=== PATIENT | female | born 1945 | race Caucasian/White ===

== ENCOUNTER → 2017-05-26 12:59 | Outpatient (POV) | payer MEDICARE, SELFPAY | PROVIDERS: Visit Provider Dermatology | DX: Z00.00 Encounter for general adult medical examination without abnormal findings (principal) ==

== ENCOUNTER → 2017-07-14 15:00 | Outpatient (CLI) | payer MEDICARE, OTHER, SELFPAY ==
--- NOTE | 2017-07-14 15:07 | US_ITS ---
US thyroid HISTORY: Follow-up left-sided thyroid nodules ITS.REASON: HYPOTHYROIDISM,THYROID NODULE ORDERING PHYSICIAN: Elijah Cota MD PATIENT AGE: 71 years COMPARISON: 02/26/2015 FINDINGS: There has been prior right thyroidectomy. The left lobe measures 4 x 1.2 x 1.2 cm. An isoechoic 5 x 3 mm nodule present in the upper pole on the left. 6 x 3 mm slightly hypoechoic nodule in the mid polar region. This does not appear changed. Previously there was a cystic nodule in the lower pole not apparent on today's exam. No new nodules are evident. IMPRESSION: 1. Status post right thyroidectomy. 2. No change in the 2 small left thyroid nodules. Previously noted left thyroid cyst no longer apparent
== END ==
PROVIDERS: PCP Internal Medicine Adolescent Medicine; Visit Provider Internal Medicine Adolescent Medicine
DX: E03.9 Hypothyroidism, unspecified (principal); E04.9 Nontoxic goiter, unspecified
CPT/HCPCS: 76536

== ENCOUNTER → 2017-09-01 13:09 | Outpatient (POV) | payer MEDICARE, SELFPAY | PROVIDERS: Visit Provider Dermatology | DX: Z00.00 Encounter for general adult medical examination without abnormal findings (principal) ==

== ENCOUNTER → 2018-01-25 08:41 | Outpatient (CLI) | payer MEDICARE, OTHER, SELFPAY ==
--- NOTE | 2018-01-25 08:44 | MM_ITS ---
MM Dig screening mamm BI w/CAD ORDERING PHYSICIAN : Rachid Mejia MD PATIENT AGE: 72 years GENDER: Female COMPARISON: December 2015, 2016, November 2014,. Also September 2013 and INDICATION: ITS.REASON: screening No hormones. No new complaints. Previous benign excisional biopsy left breast. Noncontributory family history TECHNIQUE: Standard CC and MLO images were obtained. R2 CAD reviewed. FINDINGS: Mild fatty replacement bilaterally Mild asymmetric residual fibroglandular elements in the retroareolar region on right more evident than left. RIGHT BREAST: No change since previous studies. Stable mammogram. Follow-up one year. LEFT BREAST:Stable breast. IMPRESSION: Stable bilateral mammogram. Follow-up in one year recommended. BI-RADS Category: 1 Negative RECOMMENDED FOLLOW-UP: 1YR 1 YEAR FOLLOW-UP (A letter has been sent to the patient regarding results of the study.)
== END ==
PROVIDERS: PCP Internal Medicine Adolescent Medicine; Visit Provider Obstetrics & Gynecology
DX: Z12.31 Encounter for screening mammogram for malignant neoplasm of breast (principal)
CPT/HCPCS: 77067

== ENCOUNTER → 2018-11-17 08:23 | Outpatient (CLI) | payer SELFPAY ==
--- NOTE | 2018-11-17 08:37 | CT_ITS ---
PROCEDURE: CT HEART W CALCIUM SCORE CLINICAL HISTORY: screening for heart disease COMPARISON: No exams were available for comparison TECHNIQUE: Axial images obtained with sagittal and coronal reformats. All CT scans at the facility use one or more dose reduction, viz: automated exposure control, ma/kV adjustment per patient size (including targeted exams where dose is matched to indication, i.e. head), or iterative reconstruction technique. FINDINGS: Coronary artery calcium score is 32 indicating mild plaque burden and moderate cardiovascular disease risk. There is some scarring noted in both lower lobes and right middle lobe IMPRESSION: Mild plaque burden with moderate cardiovascular disease risk Dictated by: Amish Pagan MD 11/17/2018 17:12 Signed by: <Electronically signed by Amish Pagan MD in [place]> 11/17/2018 17:12
== END ==
PROVIDERS: PCP Internal Medicine Adolescent Medicine; Visit Provider Internal Medicine Cardiovascular Disease
DX: Z13.6 Encounter for screening for cardiovascular disorders (principal)
CPT/HCPCS: 75571

== ENCOUNTER → 2019-02-05 07:53 | Outpatient (CLI) | payer MEDICARE, OTHER, SELFPAY ==
--- NOTE | 2019-02-05 07:55 | MM_ITS ---
PROCEDURE: MM DIG SCREENING MAMM BI W/CAD Patient Age:73Y CLINICAL INDICATION: screening. No hormones. No new complaints. Noncontributory family history. Previous benign excisional biopsy left breast. COMPARISON: [facility] DIG MAMM-SCREEN WOOD from 01/13/2016 [facility] DIG MAMM-SCREEN WOOD W/CAD from 01/19/2017 [facility] MM Dig screening mamm BI w/CAD from 01/25/2018 TECHNIQUE: Standard CC and MLO images were obtained. R2 CAD reviewed. FINDINGS: Stable mild/moderate asymmetry. Mild residual fibroglandular elements Right breast. We again see the stable breast density more evident at right retroareolar, than left. Longstanding feature with no change since prior studies dating back to 2016. No new areas of concern-no new dominant or suspicious mass is identified. No suspicious calcifications. CAD highlights no new areas of concern.. . Bilateral follow-up 1 year recommended IMPRESSION: Stable bilateral mammogram . No significant change since previous studies b Bilateral follow-up 1 year recommended BI-RAD Category: 1 Negative FOLLOW-UP: 1YR 1 Year Follow-up (A letter has been sent to the patient regarding results of the study.) Dictated by: Zhang Archuleta MD 02/05/2019 14:39 Electronically signed by Zhang Archuleta MD in [place] 02/05/2019 14:39
== END ==
PROVIDERS: PCP Internal Medicine Adolescent Medicine; Visit Provider Obstetrics & Gynecology
DX: Z12.31 Encounter for screening mammogram for malignant neoplasm of breast (principal)
CPT/HCPCS: 77067

== ENCOUNTER → 2019-02-16 13:13 | Outpatient (CLI) | payer MEDICARE, OTHER, SELFPAY ==
[2019-02-16 13:30] LABS: Eosinophils # 0.1 K/mm3 (0.0-0.4); Eosinophils % 1.3 % (0.1-12.0); Hematocrit 41.6 % (37.0-47.0); Hemoglobin 13.8 g/dL (12.2-16.2); Lymphocytes # 1.1 K/mm3 (0.7-4.5); Lymphocytes % 28.4 % (10-50); Mean Corpuscular HGB Conc 33.1 g/dL (31.8-35.4); Mean Corpuscular Hemoglobin 31.2 pg (27.0-31.2); Mean Corpuscular Volume 94.3 fl (81-99); Mean Platelet Volume 8.1 fl (7.4-10.4); Monocytes # 0.2 K/mm3 (0.1-1.0); Monocytes % 5.8 % (1.7-9.3); Neutrophils # 2.5 K/mm3 (1.8-7.8); Neutrophils % 63.5 % (37.0-80.0); Platelet Count 263 K/mm3 (142-424); Red Blood Count 4.41 M/mm3 (4.20-5.40); Red Cell Distribution Width 14.4 % (11.5-17.5); White Blood Count 3.9 K/mm3 (4.8-10.8)
[2019-02-16 14:48] LABS: Alanine Aminotransferase 24 U/L (12-78); Albumin Level 3.6 gm/dL (3.4-5.0); Albumin/Globulin Ratio 1.3 (1.1-1.8); Alkaline Phosphatase 77 U/L (46-116); Anion Gap 9.1 mEq/L (5-15); Aspartate Amino Transferase 27 U/L (15-37); Bilirubin,Total 0.8 mg/dL (0.2-1.0); Blood Urea Nitrogen 10 mg/dL (7-18); Calcium 8.6 mg/dL (8.5-10.1); Carbon Dioxide 31 mmol/L (21.0-32.0); Chloride 99 mmol/L (98-107); Chol/HDL Ratio 1.9 (1-3.5); Cholesterol 165 mg/dL (140-200); Creatinine,Serum 0.87 mg/dL (0.55-1.02); Estimated Glomerular Filt Rate 64 ml/min (>60); GFR (African American) 77 ML/MIN (>60); Globulin 2.7 gm/dl (1.3-3.2); Glucose 81 mg/dL (74-106); HDL Cholesterol 85 mg/dL (29-89); LDL Cholesterol 70 mg/dL (0-130); Potassium 3.1 mmoL/L (3.5-5.1); Sodium 136 mmol/L (136-145); Thyroid Stimulating Hormone 2.14 uIU/ml (0.358-3.740); Total Protein,Serum 6.3 gm/dL (6.4-8.2); Triglycerides 52 mg/dL (30-200); Triiodothryronine (T3) Uptake 36 % (31-39); VLDL Cholesterol 10 mg/dL (0-40)
== END ==
PROVIDERS: Visit Provider Internal Medicine Adolescent Medicine
DX: E78.5 Hyperlipidemia, unspecified (principal); E03.9 Hypothyroidism, unspecified; Z86.39 Personal history of other endocrine, nutritional and metabolic disease
CPT/HCPCS: 36415; 80053; 80061; 84436; 84443; 84479; 85025

== ENCOUNTER → 2019-03-05 13:05 | Outpatient (CLI) | payer MEDICARE, OTHER, SELFPAY ==
--- NOTE | 2019-03-05 13:06 | XR_ITS ---
PROCEDURE: XR DEXA AXIAL SKELETON CLINICAL HISTORY: screening Postmenopausal female COMPARISON: FINDINGS: utilizing the radius bone mineral density was 0.612 grams/squared centimeter. T-score -3.[address] the patient in the osteoporotic category with increased fracture risk. Utilizing the femoral neck bone mineral density was 0.844 grams/squared centimeter with a T-score -1.4 indicating osteopenia. 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
== END ==
PROVIDERS: PCP Internal Medicine Adolescent Medicine; Visit Provider Obstetrics & Gynecology
DX: Z78.0 Asymptomatic menopausal state (principal)
CPT/HCPCS: 77080

== ENCOUNTER → 2019-05-18 12:47 | Outpatient (CLI) | payer MEDICARE, OTHER, SELFPAY ==
[2019-05-18 13:22] LABS: Basophils % 1.1 % (0.1-2.0); Eosinophils % 1.1 % (0.1-12.0); Hematocrit 42.3 % (37.0-47.0); Hemoglobin 13.5 g/dL (12.2-16.2); Lymphocytes # 1.1 K/mm3 (0.7-4.5); Lymphocytes % 28.6 % (10-50); Mean Corpuscular Hemoglobin 29.2 pg (27.0-31.2); Mean Corpuscular Volume 91.5 fl (81-99); Mean Platelet Volume 7.3 fl (7.4-10.4); Monocytes # 0.2 K/mm3 (0.1-1.0); Neutrophils # 2.4 K/mm3 (1.8-7.8); Neutrophils % 63.2 % (37.0-80.0); Platelet Count 258 K/mm3 (142-424); Red Blood Count 4.62 M/mm3 (4.20-5.40); Red Cell Distribution Width 14.1 % (11.5-17.5); White Blood Count 3.8 K/mm3 (4.8-10.8)
[2019-05-18 14:17] LABS: Chloride 96 mmol/L (98-107)
[2019-05-18 14:18] LABS: Potassium 3.4 mmoL/L (3.5-5.1); Sodium 133 mmol/L (136-145)
[2019-05-18 14:20] LABS: Alanine Aminotransferase 17 U/L (12-78); Alkaline Phosphatase 64 U/L (38-126); Anion Gap 10.4 mEq/L (5-15); Aspartate Amino Transferase 29 U/L (14-36); Bilirubin,Total 0.7 mg/dl (0.2-1.3); Blood Urea Nitrogen 12 mg/dl (7-17); Carbon Dioxide 30 mmol/L (22.0-30.0); Cholesterol 152 mg/dl (140-200); Estimated Glomerular Filt Rate 62 ml/min (>60); GFR (African American) 74 ML/MIN (>60); Triglycerides 73 mg/dl (30-150); VLDL Cholesterol 15 mg/dL (0-40)
[2019-05-18 14:21] LABS: Albumin Level 3.8 g/dl (3.5-5.0); Albumin/Globulin Ratio 1.7 (1.1-1.8); Calcium 9.3 mg/dl (8.4-10.2); Chol/HDL Ratio 2.1 (1-3.5); Globulin 2.2 g/dL (1.3-3.2); Glucose 86 mg/dl (74-100); HDL Cholesterol 74 mg/dl (40-60)
[2019-05-18 14:32] LABS: Direct LDL Cholesterol 69.14 mg/dL (100-129)
[2019-05-18 14:50] LABS: Thyroid Stimulating Hormone 1.64 uIU/mL (0.465-4.68)
[2019-05-19 08:45] LABS: Vitamin D 25 Hydroxy 51.6 ng/mL (30.0-100.0)
== END ==
PROVIDERS: Visit Provider Internal Medicine Adolescent Medicine
DX: Z00.00 Encounter for general adult medical examination without abnormal findings (principal); E78.5 Hyperlipidemia, unspecified; M81.0 Age-related osteoporosis without current pathological fracture
CPT/HCPCS: 36415; 80053; 80061; 82652; 84443; 85025

== ENCOUNTER 2019-05-30 12:53 | Outpatient (CLI) | payer MEDICARE, OTHER, SELFPAY ==
[2019-05-30 13:02] VITALS: BP 131/70; PULSE 68; RESP 18
[2019-05-30 13:20] VITALS: BP 124/73; PULSE 63; RESP 18
== END 2019-05-30 13:20 | disposition home or self-care (01) ==
LOC: INF 12:53
PROVIDERS: Visit Provider Internal Medicine Adolescent Medicine
DX: M81.0 Age-related osteoporosis without current pathological fracture (principal)
CPT/HCPCS: 96374; J3489

== ENCOUNTER → 2019-08-31 08:54 | Outpatient (CLI) | payer MEDICARE, OTHER, SELFPAY ==
[2019-08-31 09:42] LABS: Basophils # 0.1 K/mm3 (0-0.2); Basophils % 1.4 % (0.1-2.0); Eosinophils # 0.1 K/mm3 (0.0-0.4); Eosinophils % 2.4 % (0.1-12.0); Hematocrit 37.6 % (37.0-47.0); Hemoglobin 13.3 g/dL (12.2-16.2); Lymphocytes # 0.8 K/mm3 (0.7-4.5); Mean Corpuscular HGB Conc 35.3 g/dL (31.8-35.4); Mean Corpuscular Hemoglobin 31.7 pg (27.0-31.2); Mean Corpuscular Volume 89.9 fl (81-99); Mean Platelet Volume 7.9 fl (7.4-10.4); Monocytes # 0.2 K/mm3 (0.1-1.0); Monocytes % 4.7 % (1.7-9.3); Neutrophils # 2.2 K/mm3 (1.8-7.8); Neutrophils % 66.5 % (37.0-80.0); Platelet Count 242 K/mm3 (142-424); Red Blood Count 4.19 M/mm3 (4.20-5.40); Red Cell Distribution Width 14.1 % (11.5-17.5); White Blood Count 3.3 K/mm3 (4.8-10.8)
[2019-08-31 10:32] LABS: Chloride 96 mmol/L (98-107); Potassium 3.8 mmoL/L (3.5-5.1); Sodium 135 mmol/L (136-145)
[2019-08-31 10:34] LABS: Alanine Aminotransferase 17 U/L (12-78); Aspartate Amino Transferase 29 U/L (14-36); Blood Urea Nitrogen 16 mg/dl (7-17); Estimated Glomerular Filt Rate 54 ml/min (>60); GFR (African American) 66 ML/MIN (>60)
[2019-08-31 10:35] LABS: Albumin Level 3.7 g/dl (3.5-5.0); Albumin/Globulin Ratio 1.5 (1.1-1.8); Alkaline Phosphatase 73 U/L (38-126); Anion Gap 10.8 mEq/L (5-15); Bilirubin,Total 0.9 mg/dl (0.2-1.3); Calcium 8.7 mg/dl (8.4-10.2); Carbon Dioxide 32 mmol/L (22.0-30.0); Chol/HDL Ratio 1.8 (1-3.5); Cholesterol 151 mg/dl (140-200); Globulin 2.4 g/dL (1.3-3.2); Glucose 91 mg/dl (74-100); HDL Cholesterol 84 mg/dl (40-60); Total Protein,Serum 6.1 g/dl (6.3-8.2); Triglycerides 100 mg/dl (30-150); VLDL Cholesterol 20 mg/dL (0-40)
[2019-08-31 10:47] LABS: Direct LDL Cholesterol 66.66 mg/dL (100-129)
[2019-08-31 11:05] LABS: Thyroid Stimulating Hormone 2.16 uIU/mL (0.465-4.68)
[2019-09-01 13:53] LABS: Vitamin B12 418 pg/mL (232-1245)
== END ==
PROVIDERS: Visit Provider Internal Medicine Adolescent Medicine
DX: E03.9 Hypothyroidism, unspecified (principal); E78.5 Hyperlipidemia, unspecified; Z86.39 Personal history of other endocrine, nutritional and metabolic disease
CPT/HCPCS: 36415; 80053; 80061; 82607; 84443; 85025

== ENCOUNTER → 2019-10-29 13:46 | Outpatient (CLI) | payer MEDICARE, OTHER, SELFPAY ==
--- NOTE | 2019-10-29 13:49 | US_ITS ---
PROCEDURE: US THYROID CLINICAL INDICATION: THYROID NODULE Follow-up thyroid nodule COMPARISON: THY US thyroid from 07/14/2017 FINDINGS: There has been a prior right thyroidectomy. The isthmus has an unremarkable appearance. There is a 5 x 2 mm area of slight decreased echogenicity in the upper pole on the left not significantly changed. In addition, there is a 6 mm area of somewhat heterogeneous decreased echogenicity in the mid polar region unchanged. No new areas of concern IMPRESSION: Status post right thyroidectomy. No change in the areas of decreased echogenicity in the left lobe which may be due to small stable nodules Dictated by: Amish Pagan MD 10/29/2019 17:19 Electronically signed by Amish Pagan MD in [place] 10/29/2019 17:19
== END ==
PROVIDERS: PCP Internal Medicine Adolescent Medicine; Visit Provider Internal Medicine Adolescent Medicine
DX: E04.1 Nontoxic single thyroid nodule (principal)
CPT/HCPCS: 76536

== ENCOUNTER → 2019-11-02 10:40 | Outpatient (CLI) | payer MEDICARE, OTHER, SELFPAY ==
[2019-11-02 16:14] LABS: Coronavirus 19 IgG Antibody Negative (Negative)
[2019-11-02 16:15] LABS: Coronavirus 19 IgM Antibody Negative (Negative)
== END ==
PROVIDERS: Visit Provider Internal Medicine Gastroenterology
DX: Z01.818 Encounter for other preprocedural examination (principal); Z12.11 Encounter for screening for malignant neoplasm of colon
CPT/HCPCS: 36415; 86328

== ENCOUNTER 2019-11-05 12:50 | Day surgery (SDC) | payer MEDICARE, OTHER, SELFPAY ==
[2019-11-01 13:16] VITALS: BMI 21.7
[2019-11-05 13:21] VITALS: BP 166/95; PULSE 84; RESP 18; TEMP 36.7; O2SAT 98
--- NOTE | 2019-11-05 13:53 | P.PCN_ITS ---
[facility] Procedure Note Procedure Note:: Colonoscopy Procedure Report: Colonoscopy with cold snare polypectomy Endoscopist: Bogdan Hannah II, MD Referring physician: ANDREW Arce Date of Procedure: November 05, 2019 Equipment: Olympus 180 variable stiffness pediatric colonoscope Sedation: MAC sedation Indication: Mrs. Xiao is a 74-year-old female who is here for follow-up screening/surveillance colonoscopy secondary to a personal history of adenomatous polyps. She had a normal colonoscopy 15 years ago (at age 59). The patient's last colonoscopy 5 years ago revealed for colon polyps (probable adenomatous polyps with Dr. Juanita Valdes). The patient does have some chronic longstanding constipation. She reports no abdominal pain, weight loss, change in her bowel habits or rectal bleeding. She reports no family history of colon cancer. Her recent lab work showed normal hemoglobin 13.5 and hematocrit 42.3. Her liver chemistries were normal. Procedure: Prior to the procedure, a history and physical exam was performed, and patient's medications and allergies were reviewed. The risks, benefits and alternatives of the sedation and procedure were discussed with the patient. All questions were answered and informed consent was obtained. The patient was brought to the procedure room. Patient identification and proposed procedure were verified by the physician and the nurse. The patient was placed in a left lateral decubitus position and the scope was passed under direct vision. Throughout the procedure, the patient's blood pressure, pulse, and oxygen saturations were monitored continuously. The colonoscopy was accomplished without difficulty. The patient tolerated the procedure well. Findings: On digital rectal examination there was normal rectal tone. There were no external hemorrhoids. The colonoscope was introduced through the anal canal to the rectum and advanced to the cecum. The ileocecal valve and appendiceal orifice were identified. The scope was advanced a short distance into the ileum which appeared grossly normal. The scope was then withdrawn into the colon. The cecum, ascending and transverse colon and mucosa were grossly normal. There were 3 diminutive polyps (descending x2 (3 and 4 mm) and sigmoid x1 (3 mm)) that were removed via cold snare polypectomy. There were scattered diverticuli throughout the descending and sigmoid colon (LEFT colon). There was very mild melanosis coli of the left colon. The rectum itself was normal. Upon retroflexion within the rectum there were grade 1-2 internal hemorrhoids. The preparation was excellent throughout with [place] Preparation Score of 9. The cecal time was 12 minutes. Impression: 1. Diminutive colonic polyps x3 2. Left-sided diverticulosis 3. Grade 1-2 internal hemorrhoids Plan: I will follow up the polyp pathology and recommend repeat colonoscopy again in 5-7 years based upon the polyp histology. I would encourage a fiber bowel regimen on a long-term daily maintenance basis.
[2019-11-05 13:54] VITALS: O2SAT 97
--- NOTE | 2019-11-05 14:12 | HMH.ANESCL ---
[facility] Anesthesia Checklist - Patient Identification Patient Identification: Arm Band - Structural Data Admitted From: Home Planned Operative Procedure/s: colonoscopy Consent for Planned Operative Procedure(s) Verified: Yes Verified Documents: Surgical Consent, History and Physical - NPO Status Verified Time NPO: 00:00 - Additional verifications Anesthesia Reactions: No - Airway Assessment C-Spine Mobility Assessed: Yes (mp2) TMJ Mobility Assessed: Yes Dentition: Poor Dentition - Neurological Assessment Level of Consciousness: Awake, Alert - Anesthesia Plan Anesthesia Risk discussed: Yes Anesthesia Plan: Verified ASA Class: II Anesthesia Type: MAC [facility] History I have reviewed the patient's past medical history: Yes Medical History: Reports:: Hyperlipidemia, Hypertension Denies:: Cancer, Diabetes Mellitus Type 1, Diabetes Mellitus Type 2, Internal Pacemaker, MRSA, Seizures *Have you ever received a pneumonia vaccine?: Yes *Have you received a flu vaccine this season?: Yes Other Medical History: Reports: Anemia, Hypothyroidism, Thyroid Disease Anesthesia experience/problems:: nac Other Surgeries: Yes: Hysterectomy-Total, Tubal Ligation, Other. No: Pacemaker Amputation: No Fractures: Yes - *Social History Last grade of school completed: High school graduate Smoking Status: Former smoker Alcohol Intake: never Alcohol Intake Frequency:: a few times a week Substance Use Type: denies use *Occupational Status:: retired Housing: house Household Members: spouse *Travel in the last 8 weeks: None Family Hx:: Coronary Artery Disease, Stroke, Hypertension
[2019-11-05 14:25] VITALS: BP 96/54; PULSE 64; RESP 12; TEMP 36.7; O2SAT 97
[2019-11-05 14:35] VITALS: BP 126/73; PULSE 76; RESP 16; O2SAT 98
[2019-11-05 14:45] VITALS: BP 126/76; PULSE 74; RESP 16; O2SAT 95
[2019-11-05 14:55] VITALS: BP 114/78; PULSE 73; RESP 16; TEMP 36.7; O2SAT 97
== END 2019-11-05 14:56 | disposition home or self-care (01) ==
LOC: OUTP 12:52
PROVIDERS: PCP Internal Medicine Adolescent Medicine; Visit Provider Internal Medicine Gastroenterology
PROC: 0DJD8ZZ Inspection of Lower Intestinal Tract, Via Natural or Artificial Opening Endoscopic (ICD-10-PCS; CPT 45378; principal; 2019-11-05 14:00)
DX: Z12.11 Encounter for screening for malignant neoplasm of colon (principal); Z87.19 Personal history of other diseases of the digestive system; K63.5 Polyp of colon; K57.30 Diverticulosis of large intestine without perforation or abscess without bleeding; K64.0 First degree hemorrhoids; E78.5 Hyperlipidemia, unspecified; I10 Essential (primary) hypertension; Z85.850 Personal history of malignant neoplasm of thyroid; E89.0 Postprocedural hypothyroidism; Z90.710 Acquired absence of both cervix and uterus; Z88.6 Allergy status to analgesic agent; Z79.899 Other long term (current) drug therapy
CPT/HCPCS: 45385; 88305

== ENCOUNTER → 2020-02-08 12:36 | Outpatient (CLI) | payer MEDICARE, OTHER, SELFPAY ==
--- NOTE | 2020-02-08 12:36 | MM_ITS ---
PROCEDURE: MM DIG SCREENING MAMM BI W/CAD Referring Doctor: Glo Mathew Patient Age:74Y CLINICAL INDICATION: Routine Screening Mammogram. 74-year-old.. No hormones no new complaints Has had left breast benign excisional excisional biopsy Family history. Unremarkable COMPARISON: MG [facility] DIGITAL MAMM-SCREEN BILATERAL from 09/29/2010 MG [facility] DIGITAL MAMM-SCREEN BILATERAL from 10/13/2011 MG [facility] DIG MAMM-SCREEN WOOD from 10/19/2012 MG [facility] DIG MAMM-SCREEN WOOD from 10/22/2013 MG [facility] DIG MAMM-SCREEN WOOD from 12/23/2014 MG [facility] DIG MAMM-SCREEN WOOD from 01/13/2016 MG [facility] DIG MAMM-SCREEN WOOD W/CAD from 01/19/2017 [facility] MM Dig screening mamm BI w/CAD from 01/25/2018 MG MM DIG SCREENING MAMM BI W/CAD from 02/05/2019 TECHNIQUE: Standard CC and MLO images were obtained. R2 CAD reviewed. Bilateral digital breast tomosynthesis included. Additional MLO nipple profile view left breast included FINDINGS: Moderate density breast with fibroglandular elementsmost evident anterior breast retroareolar region bilateral. No new dominant or suspicious mass either breast but no suspicious calcifications but would encourage annual follow-up. Left breast: No significant new findings. Overall stable appearance when compared back to 2016 with no new areas of significant concern Small areas of density at the medial breast are similar to 2016 but no significant new findings overall Right breast: No new findings of significant concern. . Similar pattern previous studies. Scattered minor areas of asymmetric density dissipate on the tomosynthesis views bilateral IMPRESSION: Stable bilateral mammogram. No new areas of significant concern. Moderately dense breast Bilateral follow-up 1 year, recommended and encouraged BI-RAD Category: 2 Benign Finding(s) FOLLOW-UP: 1YR 1 Year Follow-up (A letter has been sent to the patient regarding results of the study.) Dictated by: Zhang Archuleta MD 02/19/2020 09:26 Zhang Archuleta MD in [place] 02/19/2020 09:26
== END ==
PROVIDERS: PCP Internal Medicine Adolescent Medicine; Visit Provider Obstetrics & Gynecology
DX: Z12.31 Encounter for screening mammogram for malignant neoplasm of breast (principal)
CPT/HCPCS: 77063; 77067

== ENCOUNTER → 2020-02-19 14:37 | Outpatient (CLI) | payer MEDICARE, OTHER, SELFPAY ==
--- NOTE | 2020-02-19 14:39 | XR_ITS ---
PROCEDURE: XR MULTIPLE SPINE 6+V CLINICAL INDICATION: LOWER THORACIC BACK PAIN, CERVICALGIA Pain COMPARISON: No exams were available for comparison FINDINGS: There is exaggerated cervical lordosis and thoracic kyphosis with multilevel degenerative disc disease. Facet arthritic changes are present with hypertrophy from C4-C7. There is mild foraminal narrowing on the left at C4-C5. No fracture or dislocation. No lytic or blastic change. There is degenerative disc disease in the mid and upper thoracic spine There postsurgical changes of the lumbar spine with a lateral bone plate at L1 L2 and L3 stabilizing an old L2 compression fracture with a circular cage device present at L1-L2 and L3. There is mild lumbar scoliosis convex right. There is degenerative disc disease at L5-S1. There is 7 mm anterolisthesis of L4. IMPRESSION: Multilevel spondylosis of the cervical thoracic and lumbar spine with postsurgical changes of the lumbar spine. No acute fracture or dislocation. Dictated by: Amish Pagan MD 02/19/2020 15:42 Amish Pagan MD in [place] 02/19/2020 15:42
--- NOTE | 2020-02-19 14:40 | CT_ITS ---
PROCEDURE: CT SOFT TISSUE NECK WO CON CLINICAL HISTORY: SUBMANDIBULAR LYMPHADENOPATHY swollen lymph node, right side x several weeks achy pain at times COMPARISON: No exams were available for comparison TECHNIQUE: Oral Contrast: None IV Contrast: None Axial images obtained with sagittal and coronal reformats. All CT scans at the facility use one or more dose reduction, viz: automated exposure control, ma/kV adjustment per patient size (including targeted exams where dose is matched to indication, i.e. head), or iterative reconstruction technique. FINDINGS: Evaluation in the soft tissues of the neck is somewhat limited without IV contrast. The nasopharynx, oropharynx, hypopharynx, epiglottis, glottic and subglottic region have an unremarkable appearance. There is a 3 mm hypodensity in the left lobe of the thyroid gland suggesting a small nodule. There are few scattered small lymph nodes in the neck with no dominant adenopathy. The parotid and submandibular glands have an unremarkable appearance. A BB is placed along the right mid aspect of the neck where there is an area of palpable concern. There is no soft tissue mass deep to this region. There are couple small nodes and external jugular vein noted at this area. The paranasal sinuses, mastoid sinuses in TMJs have an unremarkable appearance. There are mild degenerative changes in the cervical spine with 3 mm anterolisthesis of C4 on C5. IMPRESSION: Essentially unremarkable unenhanced CT of the neck. There are few scattered small lymph nodes. Deep to the placed BB in the right neck there is a small lymph node and external jugular vein. Dictated by: Amish Pagan MD 02/20/2020 11:43 Amish Pagan MD in [place] 02/20/2020 11:43
== END ==
PROVIDERS: PCP Internal Medicine Adolescent Medicine; Visit Provider Internal Medicine Adolescent Medicine
DX: R59.0 Localized enlarged lymph nodes (principal); M54.2 Cervicalgia; M54.6 Pain in thoracic spine
CPT/HCPCS: 70490; 72084

== ENCOUNTER → 2020-04-14 12:10 | Outpatient (CLI) | payer MEDICARE, OTHER, SELFPAY ==
[2020-04-14 12:53] LABS: Basophils % 0.8 % (0.1-2.0); Eosinophils % 0.8 % (0.1-12.0); Hemoglobin 14.6 g/dL (12.2-16.2); Lymphocytes # 1.1 K/mm3 (0.7-4.5); Lymphocytes % 20.3 % (10-50); Mean Corpuscular HGB Conc 32.4 g/dL (31.8-35.4); Mean Corpuscular Hemoglobin 31.4 pg (27.0-31.2); Mean Corpuscular Volume 97.1 fl (81-99); Mean Platelet Volume 11.2 fl (7.4-10.4); Monocytes # 0.3 K/mm3 (0.1-1.0); Neutrophils # 3.8 K/mm3 (1.8-7.8); Platelet Count 318 K/mm3 (142-424); Red Blood Count 4.64 M/mm3 (4.20-5.40); Red Cell Distribution Width 14.4 % (11.5-17.5); White Blood Count 5.2 K/mm3 (4.8-10.8)
[2020-04-14 13:23] LABS: Alanine Aminotransferase 28 U/L (12-78); Albumin Level 4.2 g/dl (3.5-5.0); Albumin/Globulin Ratio 1.5 (1.1-1.8); Alkaline Phosphatase 84 U/L (38-126); Anion Gap 8.9 mEq/L (5-15); Aspartate Amino Transferase 36 U/L (14-36); Bilirubin,Total 0.7 mg/dl (0.2-1.3); Blood Urea Nitrogen 14 mg/dl (7-17); Calcium 10.4 mg/dl (8.4-10.2); Carbon Dioxide 33 mmol/L (22.0-30.0); Chloride 93 mmol/L (98-107); Estimated Glomerular Filt Rate 70 ml/min (>60); GFR (African American) 85 ML/MIN (>60); Globulin 2.8 g/dL (1.3-3.2); Glucose 106 mg/dl (74-100); Potassium 3.9 mmoL/L (3.5-5.1); Sodium 131 mmol/L (136-145)
[2020-04-14 13:40] LABS: Free Thyroxine Index 3.9 ug/dL (5.93-13.13); T4 (Thyroxine) 11.6 ug/dl (5.53-11.0); Triiodothryronine (T3) Uptake 34 % (23.5-40.5)
[2020-04-14 13:42] LABS: 25-OH Vitamin D, Total 43.5 ng/mL (30-100)
[2020-04-14 13:54] LABS: Thyroid Stimulating Hormone 2.07 uIU/mL (0.465-4.68)
[2020-04-14 14:54] LABS: Vitamin B12 662 pg/mL (239-931)
[2020-04-15 10:03] LABS: Chol/HDL Ratio 2.3 (1-3.5); Cholesterol 197 mg/dl (140-200); HDL Cholesterol 87 mg/dl (40-60); Triglycerides 93 mg/dl (30-150); VLDL Cholesterol 19 mg/dL (0-40)
[2020-04-15 10:14] LABS: Direct LDL Cholesterol 82.79 mg/dL (100-129)
== END ==
PROVIDERS: Visit Provider Internal Medicine Adolescent Medicine
DX: E03.9 Hypothyroidism, unspecified (principal); E78.5 Hyperlipidemia, unspecified; M81.0 Age-related osteoporosis without current pathological fracture; Z86.39 Personal history of other endocrine, nutritional and metabolic disease
CPT/HCPCS: 36415; 80053; 80061; 82306; 82607; 84436; 84443; 84479; 85025

== ENCOUNTER 2020-05-19 15:00 | Outpatient (RCR) | payer MEDICARE, OTHER, SELFPAY ==
--- NOTE | 2020-04-21 11:33 | HMH.OTOPEV ---
OT Inpatient Evaluation Rehab OT Outpatient Eval Start: 04/21/20 11:09 Freq: Status: Active Protocol: Document 04/21/20 11:09 DINESH (Rec: 04/21/20 11:33 [id number] Electronically Signed By Magaly Neves OT 04/21/20 11:09 Outpatient Therapy Subjective History Subjective History Pt was seen this date for initial eval to L shoulder. Pt has dx of L frozen shoulder, but reports more pain with R shoulder. Pt can not remember a specific injury to L shoulder; however pt's in January 2020, and he used a wheelchair for mobility. Pt beleives her pain is related to getting his w/c in and out of the vehicle. After his , pt reports that the pain came on gradually and the shoulder has also became stiff, limiting her ROM. Pt reports that she has not had any x-rays for this specific injury, but she has arthritis in her back. Pt is R hand dominant. Pt demonstrates a decrease in strength and ROM along w/ pain when she moves her arm. Chief Complaint Pain,Stiff Symptom Type Other Symptoms Relieved By Rest/Positioning Symptoms Aggravated By Physical Activity,Lifting Prior Functional Limitations None Current Functional Limitations Reaching,Lifting,Housework, Dressing,Driving,Sleeping Symptom Description Intermittent,Activity Dependent Level of pain today (0-10) 4 Pain scale - at its best (0-10) 2 Pain scale - at its worst (0-10) 6 Shoulder/Elbow Eval Shoulder Objective Measurements Shoulder ROM Left Shoulder Abduction Active Range of 67 Motion (degrees) Shoulder Flexion Active Range of Motion 104 (degrees) Query Text: Shoulder External Rotation Active Range 30 of Motion (degrees) Shoulder Internal Rotation Active Range 45 of Motion (degrees) pain with active ROM shoulder exam left standard pain with passive ROM shoulder exam left standard decreased ROM shoulder exam standard left Shoulder MMT Shoulder Abduction Strengt
== END 2020-05-19 15:05 | disposition home or self-care (01) ==
LOC: OT 15:00
PROVIDERS: PCP Internal Medicine Adolescent Medicine; Visit Provider Internal Medicine Adolescent Medicine
DX: M75.02 Adhesive capsulitis of left shoulder (principal)
CPT/HCPCS: 97014; 97110; 97140; 97166; G0283

== ENCOUNTER 2020-07-02 13:24 | Outpatient (CLI) | payer MEDICARE, OTHER, SELFPAY ==
--- NOTE | 2020-07-02 13:30 | XR_ITS ---
PROCEDURE: XR SHOULDER RT MIN 2V CLINICAL INDICATION: BL shoulder pain Right shoulder pain COMPARISON: CR SHOU3R [id number] VIEWS from 12/05/2016 CR XR SHOULDER LT MIN 2V from 07/02/2020 FINDINGS: There are severe osteoarthritic changes of the right shoulder including the acromioclavicular and glenohumeral joint. There is severe subacromial stenosis with loss of the acromial humeral space consistent with rotator cuff tear. There is a lucency noted along the anterior aspect of the glenoid on the axillary view and could be related to an old fracture or atypical osteophyte. There are old right-sided rib fractures. Other findings:None. IMPRESSION: Severe osteoarthritic change of the acromioclavicular and glenohumeral joint with severe subacromial stenosis consistent with rotator cuff tear with high-riding humeral head Nondisplaced fracture versus atypical osteophyte along the anterior aspect of the glenoid Dictated by: Amish Pagan MD 07/02/2020 14:45 Amish Pagan MD in [place] 07/02/2020 14:45
--- NOTE | 2020-07-02 13:30 | XR_ITS ---
PROCEDURE: XR SHOULDER LT MIN 2V CLINICAL INDICATION: BL shoulder pain Left-sided shoulder pain COMPARISON: CR SHOU3R [id number] VIEWS from 12/05/2016 FINDINGS: There is high-riding humeral head with severe subacromial stenosis consistent with rotator cuff tear with scalloping along the undersurface of the chromium. Osteoarthritic changes are present at the glenohumeral joint. No acute fracture or dislocation is evident. There is an old fracture of the left 3rd rib anteriorly. IMPRESSION: 1. Severe subacromial stenosis with high-riding humeral head consistent with rotator cuff tear. 2. Osteoarthritic change Dictated by: Amish Pagan MD 07/02/2020 14:47 Amish Pagan MD in [place] 07/02/2020 14:47
[2020-07-02 15:16] VITALS: BMI 22.1
[2020-07-02 15:46] LABS: Albumin Level 4.3 g/dl (3.5-5.0)
[2020-07-02 15:48] LABS: Creatinine Clearance Estimated 43 mL/min (50-200); Estimated Glomerular Filt Rate 70 ml/min (>60); GFR (African American) 85 ML/MIN (>60)
[2020-07-02 16:11] VITALS: BP 145/72; PULSE 70; RESP 18; TEMP 36.8; O2SAT 99
[2020-07-02 16:31] VITALS: BP 140/78; PULSE 76; RESP 18; O2SAT 100
== END 2020-07-02 16:31 | disposition home or self-care (01) ==
LOC: INF 13:26
PROVIDERS: PCP Internal Medicine Adolescent Medicine; Visit Provider Orthopaedic Surgery
DX: M25.511 Pain in right shoulder (principal); M25.512 Pain in left shoulder; M81.0 Age-related osteoporosis without current pathological fracture
CPT/HCPCS: 73030; 82040; 82310; 82565; 96374; J3489

== ENCOUNTER → 2020-09-11 12:11 | Outpatient (CLI) | payer MEDICARE, OTHER, SELFPAY ==
[2020-09-11 13:00] LABS: Basophils # 0.1 K/mm3 (0-0.2); Basophils % 1.3 % (0.1-2.0); Eosinophils # 0.1 K/mm3 (0.0-0.4); Hematocrit 43.5 % (37.0-47.0); Hemoglobin 13.8 g/dL (12.2-16.2); Lymphocytes # 1.2 K/mm3 (0.7-4.5); Lymphocytes % 31.1 % (10-50); Mean Corpuscular HGB Conc 31.8 g/dL (31.8-35.4); Mean Corpuscular Hemoglobin 29.5 pg (27.0-31.2); Mean Corpuscular Volume 92.9 fl (81-99); Monocytes # 0.2 K/mm3 (0.1-1.0); Monocytes % 5.6 % (1.7-9.3); Neutrophils # 2.3 K/mm3 (1.8-7.8); Platelet Count 257 K/mm3 (142-424); Red Blood Count 4.69 M/mm3 (4.20-5.40); Red Cell Distribution Width 13.4 % (11.5-17.5); White Blood Count 3.8 K/mm3 (4.8-10.8)
[2020-09-11 13:35] LABS: Alanine Aminotransferase 25 U/L (12-78); Albumin Level 4.2 g/dl (3.5-5.0); Albumin/Globulin Ratio 1.8 (1.1-1.8); Alkaline Phosphatase 83 U/L (38-126); Anion Gap 10.2 mEq/L (5-15); Aspartate Amino Transferase 36 U/L (14-36); Bilirubin,Total 0.9 mg/dl (0.2-1.3); Blood Urea Nitrogen 12 mg/dl (7-17); Carbon Dioxide 31 mmol/L (22.0-30.0); Chloride 94 mmol/L (98-107); Chol/HDL Ratio 2.2 (1-3.5); Cholesterol 197 mg/dl (140-200); Estimated Glomerular Filt Rate 70 ml/min (>60); GFR (African American) 85 ML/MIN (>60); Globulin 2.4 g/dL (1.3-3.2); Glucose 91 mg/dl (74-100); HDL Cholesterol 89 mg/dl (40-60); Potassium 4.2 mmoL/L (3.5-5.1); Sodium 131 mmol/L (136-145); Total Protein,Serum 6.6 g/dl (6.3-8.2); Triglycerides 61 mg/dl (30-150); VLDL Cholesterol 12 mg/dL (0-40)
[2020-09-11 13:46] LABS: Direct LDL Cholesterol 82.64 mg/dL (100-129)
[2020-09-11 13:52] LABS: Free Thyroxine Index 3.2 ug/dL (5.93-13.13); T4 (Thyroxine) 10.4 ug/dl (5.53-11.0); Triiodothryronine (T3) Uptake 31 % (23.5-40.5)
[2020-09-11 13:53] LABS: 25-OH Vitamin D, Total 53.4 ng/mL (30-100)
[2020-09-11 14:05] LABS: Thyroid Stimulating Hormone 1.57 uIU/mL (0.465-4.68)
[2020-09-11 14:27] LABS: Vitamin B12 556 pg/mL (239-931)
== END ==
PROVIDERS: Visit Provider Internal Medicine Adolescent Medicine
DX: E03.9 Hypothyroidism, unspecified (principal); R53.81 Other malaise; Z86.39 Personal history of other endocrine, nutritional and metabolic disease; Z68.22 Body mass index [BMI] 22.0-22.9, adult
CPT/HCPCS: 36415; 80053; 80061; 82306; 82607; 84436; 84443; 84479; 85025

== ENCOUNTER 2021-01-25 10:32 | Emergency (ER) | payer MEDICARE, OTHER, SELFPAY ==
[2021-01-25 10:40] VITALS: BP 138/76; PULSE 63; RESP 18; TEMP 36.6; O2SAT 97; BMI 24.9
--- NOTE | 2021-01-25 11:21 | HMH.EDUTC ---
[facility] [place] Clinical Impression: Tick bite Qualifiers: Encounter type: initial encounter Site of tick bite: throat Qualified Code(s): S10.16XA - Insect bite (nonvenomous) of throat, initial encounter Disposition: Home, Self-Care Condition on Discharge: Good Instructions: How to Remove a Tick, Doxycycline, Protect Yourself from Tickborne Illnesses Additional Instructions: Watch area for worsening of redness and swelling FOllow up with your Family Doctor if no improvement or any worsening of symptoms Return if needed Straight to ER if any life threatening symptoms Take medication as prescribed Prescriptions: Doxycycline Monohydrate [Doxycycline Summers 100mg Tab] 100 mg PO Q12 10 Days #20 tab Transmission Status: Received by [id number] Referrals: Elijah Cota MD [Primary Care Provider] - As needed Time of Disposition: 12:30 Medical Decision Making - Gonzales Inquiry Pt receiving controlled substance: No Gonzales was queried for this patient: No Vital Signs: 01/25/21 10:40 01/25/21 12:31 Temperature 97.8 F 97.8 F Temperature Source Oral Pulse Rate 63 Pulse Rate [Right Brachial] 63 Respiratory Rate 18 18 Blood Pressure 138/76 Blood Pressure [Right Arm] 138/76 Blood Pressure Mean [Right Arm] 96 Blood Pressure Source [Right Arm] Automatic Cuff Blood Pressure Position [Right Arm] Sitting 02 Sat by Pulse Oximetry 97 Oxygen Delivery Method Room Air Medical Decision Narrative: Small dark particle was removed from bite area redness and mild swelling noted around bite site Patient states that she is unsure how long it had been there and tick was small [facility] [place] HPI - General Stated complaint: parts of tick under chin Time Seen by Provider: 01/25/21 11:21 Mode of Arrival: Ambulatory Source of Information: Patient Limitations: No Limitations Description of Symptoms (Recalled from Triage Doc. by RN): PATIENT STATES SHE NOTICED A TICK ON HER NECK THIS MORNING. SHE STATES HER SON TRIED TO GET IT OUT BUT COULD NOT GET IT ALL. SMALL BLACK DOT NOTED TO AREA HEENT Symptoms (Recalled from RN notes): No Resp Symptoms (Recalled from RN notes): No Skin Symptoms (Recalled from RN notes): Yes MS Symptoms (Recalled from RN notes): No Functional Status (Recalled from RN notes): WNL - History of Present Illness Provider Complaint: Patient statse that she noticed she had a small tick on the left side of neck this morning States that her son used some tweezers to try to get it out and the tick broke apart States that they could see small black dot and was worried that some of the tick was left in her neck so she came in to see if someone could removed it - Related Data Home Medications Medication Instructions Recorded Confirmed atorvastatin 40 mg tablet 40 mg PO DAILY 01/23/18 12/25/20 levothyroxine 75 mcg tablet 50 mcg PO DAILY 01/23/18 12/25/20 omega-3 fatty acids 1,000 mg 1,000 mg PO DAILY 01/23/18 12/25/20 capsule temazepam 30 mg capsule 30 mg PO QHS PRN 01/23/18 12/25/20 trazodone 50 mg tablet 50 mg PO DAILY 01/23/18 12/25/20 triamterene 37.5 1 cap PO DAILY 01/23/18 12/25/20 mg-hydrochlorothiazide 25 mg capsule Zoledronic Acid/Mannitol-Water 5 mg IV .ONCE A YEAR 05/30/19 12/25/20 [Reclast 5 mg/100 ml Solution] Previous Rx's Medication Instructions Recorded polyethylene glycoL 3350 [Miralax 17 gm PO DAILYP PRN #14 packet 05/31/19 17gm Packet] Doxycycline Monohydrate 100 mg PO Q12 10 Days #20 tab 01/25/21 [Doxycycline Summers 100mg Tab] Allergies Allergy/AdvReac Type Severity Reaction Status Date / Time aspirin AdvReac Intermediate Verified 12/25/20 11:19 - Worker's Comp Is this a Worker's Comp case?: No [facility] History - Hepatitis A Screen Drug use history?: No High risk sexual behaviors?: No History of sexually transmitted infection?: No Currently employed?: No Childcare worker?: No Do you have indoor plumbing?: Yes Do you have electricity?: Yes A
[2021-01-25 12:31] VITALS: BP 138/76; PULSE 63; RESP 18; TEMP 36.6; O2SAT 97
== END 2021-01-25 12:39 | disposition home or self-care (01) ==
PROVIDERS: Emergency Provider Nurse Practitioner; PCP Internal Medicine Adolescent Medicine
DX: S00.86XA Insect bite (nonvenomous) of other part of head, initial encounter (principal); W57.XXXA Bitten or stung by nonvenomous insect and other nonvenomous arthropods, initial encounter; Y92.019 Unspecified place in single-family (private) house as the place of occurrence of the external cause; E78.5 Hyperlipidemia, unspecified; I10 Essential (primary) hypertension; E03.9 Hypothyroidism, unspecified; M81.0 Age-related osteoporosis without current pathological fracture; Z87.891 Personal history of nicotine dependence
CPT/HCPCS: G0463; 99202

== ENCOUNTER → 2021-02-13 12:27 | Outpatient (CLI) | payer MEDICARE, OTHER, SELFPAY ==
--- NOTE | 2021-02-13 12:29 | MM_ITS ---
PROCEDURE INFORMATION: Exam: MG Bilateral Screening 3D Mammography Exam date and time: 02/13/2021 12:29 PM Age: 75 years old Clinical indication: Encounter for screening mammogram for malignant neoplasm of breast TECHNIQUE: Imaging protocol: Bilateral screening tomosynthesis and 2D mammography including computer-aided detection (CAD) when performed. COMPARISON: 1. MG MM DIG SCREENING MAMM BI W/CAD 02/08/2020 12:56 PM 2. MG MM DIG SCREENING MAMM BI W/CAD 02/05/2019 8:11 AM 3. MG [facility] MM Dig screening mamm BI w/CAD 01/25/2018 8:57 AM 4. MG [facility] DIG MAMM-SCREEN WOOD W/CAD 01/19/2017 10:19 AM FINDINGS: MAMMOGRAPHY: Breast composition: There are scattered areas of fibroglandular density. Mass: None. Architectural distortion: No new or suspicious architectural distortion. Calcifications: Stable benign-appearing calcifications are present. No new or suspicious cluster of microcalcifications have developed. Asymmetric density: No new or suspicious asymmetric density is present Skin thickening: None. Axillary adenopathy: None. IMPRESSION: No mammographic evidence of malignancy. Recommend annual screening mammography unless otherwise clinically indicated. ASSESSMENT: BI-RADS category 2: Benign
== END ==
PROVIDERS: PCP Internal Medicine Adolescent Medicine; Visit Provider Internal Medicine Adolescent Medicine
DX: Z12.31 Encounter for screening mammogram for malignant neoplasm of breast (principal)
CPT/HCPCS: 77063; 77067

== ENCOUNTER → 2021-02-16 10:26 | Outpatient (CLI) | payer MEDICARE, OTHER, SELFPAY ==
--- NOTE | 2021-02-16 10:31 | XR_ITS ---
PROCEDURE: XR KNEE RT 3V CLINICAL INDICATION: ACUTE PAIN OF RT KNEE COMPARISON: No exams were available for comparison FINDINGS: No fracture or dislocation. No lytic or blastic change. There is normal mineralization. Mild osteoarthritic changes are present at the medial and lateral compartment. A small calcific density is present along superior aspect of the lateral tibial spine measuring approximately 2 mm and could be due to small loose body. Other findings:Slight increased density in the suprapatellar region suggesting small knee joint effusion. IMPRESSION: Possible small loose body versus osteophyte at the medial tibial spine region with suspected small knee joint effusion and mild osteoarthritic changes Dictated by: Amish Pagan MD 02/16/2021 11:00 Amish Pagan MD in [facility] 02/16/2021 11:00
== END ==
PROVIDERS: PCP Internal Medicine Adolescent Medicine; Visit Provider Internal Medicine Adolescent Medicine
DX: M25.561 Pain in right knee (principal)
CPT/HCPCS: 73562

== ENCOUNTER 2021-03-25 13:28 | Emergency (ER) | payer MEDICARE, OTHER, SELFPAY ==
[2021-03-25 13:28] VITALS: BP 153/84; PULSE 72; RESP 16; TEMP 36.9; O2SAT 98; BMI 24.3
--- NOTE | 2021-03-25 13:40 | XR_ITS ---
PROCEDURE: XR FOREARM LT 2V CLINICAL INDICATION: fall COMPARISON: No exams were available for comparison FINDINGS: No acute radial or ulnar fracture or dislocation evident. Numerous foreign bodies are present along the proximal and mid forearm dorsally and laterally and anteriorly consistent with foreign body such is gravel or class. There is a mildly longitudinal fracture of the distal humerus with intra-articular extension. IMPRESSION: Numerous foreign bodies consistent with gravel or glass within the forearm. Longitudinal fracture of the distal humerus Dictated by: Amish Pagan MD 03/25/2021 14:48 Amish Pagan MD in [facility] 03/25/2021 14:48
--- NOTE | 2021-03-25 13:40 | XR_ITS ---
PROCEDURE: XR PELVIS 1-2V CLINICAL INDICATION: Fall COMPARISON: No exams were available for comparison TECHNIQUE: XR Pelvis AP View FINDINGS: No fracture or dislocation. No lytic or blastic change. Small sclerotic focus involves the proximal femur on the left inferior to the intertrochanteric region and may be due to a bone island. There postsurgical changes of the lumbar spine. Small bone island also suspected of the ischium on the left IMPRESSION: No acute findings. Dictated by: Amish Pagan MD 03/25/2021 14:52 Amish Pagan MD in [facility] 03/25/2021 14:52
--- NOTE | 2021-03-25 13:40 | XR_ITS ---
PROCEDURE: XR SHOULDER LT MIN 2V CLINICAL INDICATION: Fall COMPARISON: CR [id number] [id number] from 12/05/2016 CR XR SHOULDER RT MIN 2V from 07/02/2020 CR XR SHOULDER LT MIN 2V from 07/02/2020 FINDINGS: There is severe subacromial stenosis consistent with rotator cuff tear with high-riding humeral head with osteoarthritic change of the acromioclavicular and glenohumeral joint. No acute fracture or dislocation. IMPRESSION: No acute fracture. Osteoarthritic change with high-riding humeral head and severe subacromial stenosis consistent with rotator cuff tear similar to 07/02/2020 Dictated by: Amish Pagan MD 03/25/2021 14:43 Amish Pagan MD in [facility] 03/25/2021 14:43
--- NOTE | 2021-03-25 13:40 | XR_ITS ---
PROCEDURE: XR ELBOW LT MIN 3V CLINICAL INDICATION: fall COMPARISON: No exams were available for comparison FINDINGS: Longitudinal fracture involves the distal humerus extending into the distal articular surface of the humerus between the capitellum and trochlea with mild separation of the fracture fragments by approximately 9 mm. Suggest humerus film to better evaluate the proximal extent of the fracture. Mild osteoarthritic changes. Other findings:There are numerous small opacities overlying the soft tissues of the proximal forearm mainly along the radial and dorsal aspect but also anteriorly consistent with foreign body such as glass or gravel. IMPRESSION: Longitudinal fracture of the distal humerus with intra-articular extension as described above. Suggest humerus film for more thorough evaluation. Numerous foreign bodies within the soft tissues suggesting glass or gravel. Dictated by: Amish Pagan MD 03/25/2021 14:47 Amish Pagan MD in [facility] 03/25/2021 14:47
[2021-03-25 14:08] VITALS: BP 153/84; PULSE 74; RESP 16; O2SAT 98
--- NOTE | 2021-03-25 14:54 | XR_ITS ---
PROCEDURE: XR HUMERUS LT CLINICAL INDICATION: pain COMPARISON: CR XR ELBOW LT MIN 3V from 03/25/2021 FINDINGS: There is a longitudinal fracture involving the distal humerus beginning 10 cm proximal to the distal articulating surface and extending distally exiting between the capitellum and the trochlea with separation of the distal fracture fragments by approximately 8 mm and with anterior angulation of the medial aspect of the fracture fragment. There may be a separate fragment at the trochlear region. IMPRESSION: Longitudinal displaced fracture of the distal humerus extending to the articular surface with separation of the fracture fragments with possible additional fragment at the trochlear region. Dictated by: Amish Pagan MD 03/25/2021 15:17 Amish Pagan MD in [facility] 03/25/2021 15:17
--- NOTE | 2021-03-25 16:16 | PC.NURSE ---
ortho glass applied by Dr Power
--- NOTE | 2021-03-25 16:23 | HMH.EDGENADL ---
ED Disposition Clinical Impression: Humerus fracture Disposition: Home, Self-Care Condition on Discharge: Good Additional Instructions: Follow up with Ortho on Tuesday. Referrals: Elijah Cota MD [Primary Care Provider] - Deshawn Guerra JR, MD [Physician] - - Critical Care Critical Care Time: No Attestation: On 03/25/21, the high probability of a clinically significant, sudden or life threatening deterioration of the following system(s) required my full and direct attention, intervention and personal management. The time I documented below is in addition to time spent performing reported procedures but includes the following listed in this critical care notation. Medical Decision Making - [place] Inquiry Pt receiving controlled substance: No Vital Signs: 03/25/21 13:28 03/25/21 14:08 Temperature 98.5 F Temperature Source Oral Pulse Rate 74 Pulse Rate [Right] 72 Respiratory Rate 16 16 Blood Pressure 153/84 H Blood Pressure [Right Arm] 153/84 H Blood Pressure Mean [Right Arm] 107 Blood Pressure Source Automatic Cuff Blood Pressure Source [Right Arm] Automatic Cuff Blood Pressure Position Sitting Blood Pressure Position [Right Arm] Sitting 02 Sat by Pulse Oximetry 98 98 Oxygen Delivery Method Room Air Room Air Medical Decision Narrative: Patient is a 75-year-old presenting with a deformity to the left elbow. No syncope reported. Minor trauma to the head does not warrant CT imaging. X-rays demonstrate longitudinal, linear fracture including the articular surface of the left humerus. Discussed with on-call orthopedics, will refer to orthopedics clinic on Tuesday and placed in a long-arm splint. No neurologic or sensory deficits distal to the injury. General Adult HPI - General Chief complaint: Fall Stated complaint: AO fall 03/25 lt arm/head pain Time Seen by Provider: 03/25/21 16:28 Mode of Arrival: Ambulatory Limitations: No Limitations Description of Symptoms (Recalled from ER Triage Doc. by RN): Pt advises she was out in her driveway getting her mail and taking her trash out when she lost her balance and fell landing on her left side. Pt c/o pain in the left arm, and is having a hard time moving it. +PMS noted. Denies pain anywhere else and denies LOC - History of Present Illness HPI narrative: Patient is a relatively healthy 75-year-old who presents with fall and injury to the left elbow. Patient states she was taking out the trash when the accident occurred. Patient had pain in the elbow, patient had a bump to her head, however no loss of consciousness. Patient is not taking blood thinners. Patient's had no persistent nausea or vomiting. No cervical neck injury reported. No loss of sensation distal to the left elbow. - Related Data Home Medications Medication Instructions Recorded Confirmed atorvastatin 40 mg tablet 40 mg PO DAILY 01/23/18 12/25/20 levothyroxine 75 mcg tablet 50 mcg PO DAILY 01/23/18 12/25/20 omega-3 fatty acids 1,000 mg 1,000 mg PO DAILY 01/23/18 12/25/20 capsule temazepam 30 mg capsule 30 mg PO QHS PRN 01/23/18 12/25/20 trazodone 50 mg tablet 50 mg PO DAILY 01/23/18 12/25/20 triamterene 37.5 1 cap PO DAILY 01/23/18 12/25/20 mg-hydrochlorothiazide 25 mg capsule Zoledronic Acid/Mannitol-Water 5 mg IV .ONCE A YEAR 05/30/19 12/25/20 [Reclast 5 mg/100 ml Solution] Previous Rx's Medication Instructions Recorded polyethylene glycoL 3350 [Miralax 17 gm PO DAILYP PRN #14 packet 05/31/19 17gm Packet] Doxycycline Monohydrate 100 mg PO Q12 10 Days #20 tab 01/25/21 [Doxycycline [place] 100mg Tab] Allergies Allergy/AdvReac Type Severity Reaction Status Date / Time aspirin AdvReac Intermediate Verified 12/25/20 11:19 [facility] History - Hepatitis A Screen Drug use history?: No High risk sexual behaviors?: No History of sexually transmitted infection?: No Currently employed?: No Childcare worker?: No Do you have indoor pl
[2021-03-25 17:00] VITALS: BP 150/80; PULSE 72; RESP 16; TEMP 36.8; O2SAT 96
== END 2021-03-25 17:34 | disposition home or self-care (01) ==
PROVIDERS: Emergency Provider Internal Medicine Critical Care Medicine; PCP Internal Medicine Adolescent Medicine
DX: S42.402A Unspecified fracture of lower end of left humerus, initial encounter for closed fracture (principal); W01.0XXA Fall on same level from slipping, tripping and stumbling without subsequent striking against object, initial encounter; Y92.014 Private driveway to single-family (private) house as the place of occurrence of the external cause; I10 Essential (primary) hypertension; E78.5 Hyperlipidemia, unspecified; E03.9 Hypothyroidism, unspecified; Z87.891 Personal history of nicotine dependence; M81.0 Age-related osteoporosis without current pathological fracture
CPT/HCPCS: 29105; 72170; 73030; 73060; 73080; 73090; 99283

== ENCOUNTER 2021-04-26 11:21 | Emergency (ER) | payer MEDICARE, OTHER, SELFPAY ==
[2021-04-26] VITALS (7 sets, daily range): BP systolic 115–128; BP diastolic 65–79; PULSE 70–88; RESP 15–16; TEMP 36.4–36.6; O2SAT 96–98; BMI 22.3
--- NOTE | 2021-04-26 12:02 | HMH.EDGENADL ---
ED Disposition Clinical Impression: Pruritus Disposition: Home, Self-Care Condition on Discharge: Good Instructions: DI for Skin Abscess Referrals: Elijah Cota MD [Primary Care Provider] - - Critical Care Critical Care Time: No Attestation: On 04/26/21, the high probability of a clinically significant, sudden or life threatening deterioration of the following system(s) required my full and direct attention, intervention and personal management. The time I documented below is in addition to time spent performing reported procedures but includes the following listed in this critical care notation. Medical Decision Making - Medical Records Medical records reviewed: Yes: I reviewed the patient's medical records. - [place] Inquiry Pt receiving controlled substance: No Vital Signs: 04/26/21 11:22 04/26/21 11:42 04/26/21 12:30 Temperature 97.6 F Temperature Source Oral Pulse Rate 86 Pulse Rate [Radial] 79 Respiratory Rate 16 Blood Pressure 116/79 126/74 Blood Pressure [Right Arm] 116/79 Blood Pressure Mean 99 Blood Pressure Mean [Right Arm] 91 Blood Pressure Position [Right Arm] Sitting 02 Sat by Pulse Oximetry 98 96 Oxygen Delivery Method Room Air 04/26/21 13:00 04/26/21 14:00 04/26/21 14:30 Temperature Temperature Source Pulse Rate 70 88 Pulse Rate [Radial] Respiratory Rate 15 16 Blood Pressure 120/70 122/72 128/78 Blood Pressure [Right Arm] Blood Pressure Mean 93 95 99 Blood Pressure Mean [Right Arm] Blood Pressure Position [Right Arm] 02 Sat by Pulse Oximetry 97 98 Oxygen Delivery Method - Lab Data Lab results reviewed: Yes: I reviewed the patient's lab results. Lab Results 04/26/21 12:28: WBC 4.5 L, RBC 3.87 L, Hgb 11.8 L, Hct 35.7 L, MCV 92.4, MCH 30.5, MCHC 33.0, RDW 14.7, Plt Count 331, MPV 7.2 L, Neut % (Auto) 65.8, Lymph % (Auto) 20.2, [place] % (Auto) 6.9, Eos % (Auto) 6.0, Baso % (Auto) 1.1, Neut # (Auto) 3.0, Lymph # (Auto) 0.9, [place] # (Auto) 0.3, Eos # (Auto) 0.3, Baso # (Auto) 0.1 01/30/22 12:28: Sodium 125 L, Potassium 3.4 L, Chloride 89 L, Carbon Dioxide 31 H, Anion Gap 8.4, BUN 12, Creatinine 0.90, Estimated Creat Clear 42, Estimated GFR 61, Est GFR ( Amer) 74, Glucose 99, Calcium 8.8, Total Bilirubin 0.7, AST 25, ALT 12, Alkaline Phosphatase 104, Total Protein 6.3, Albumin 3.8, Globulin 2.5, Albumin/Globulin Ratio 1.5, TSH 1.32 Result diagrams: 04/26/21 12:28 04/26/21 12:28 Orders (Tests/Meds): ED MEDICATIONS Discontinued Medications Generic Name Dose Route Start Last Admin Trade Name Freq PRN Reason Stop Dose Admin Hydroxyzine Pamoate 25 mg 04/26/21 12:20 04/26/21 12:21 Hydroxyzine Pamoate 25mg Capsule PO 04/26/21 12:21 25 mg ONCE ONE Administration Medical Decision Narrative: Patient is a 75-year-old female presenting with a chief complaint of pruritus. Differential diagnosis includes, but is not limited to, medication side effect, environmental exposure to low humidity/cold, allergic dermatitis, hyperbilirubinemia, other. Patient states she is also attempted to take Benadryl without significant relief and that she does not tolerate Benadryl well. Exam is benign. She was evaluate CBC, CMP and TSH though she denies any additional complaint that would point to worsening hypothyroidism. Lab work is unremarkable and nonactionable. Patient was treated with p.o. Vistaril which helped resolve her symptoms. She was given a short prescription, counseled regarding supportive care at home including emollients, humidifier. She was advised to discontinue oxycodone and [place]. Patient is agreeable with plan. She was advised to see her primary care physician for further issues. General Adult HPI - General Chief complaint: Skin/Abscess/Foreign Body Stated complaint: itching, no rash Time Seen by Provider: 04/26/21 11:40 Mode of Arrival: Ambulatory Limitations: No Limitations Description of Symptoms (
[2021-04-26 12:52] LABS: Chloride 89 mmol/L (98-107); Potassium 3.4 mmoL/L (3.5-5.1); Sodium 125 mmol/L (136-145)
[2021-04-26 12:55] LABS: Alanine Aminotransferase 12 U/L (12-78); Albumin Level 3.8 g/dl (3.5-5.0); Albumin/Globulin Ratio 1.5 (1.1-1.8); Alkaline Phosphatase 104 U/L (38-126); Anion Gap 8.4 mEq/L (5-15); Aspartate Amino Transferase 25 U/L (14-36); Bilirubin,Total 0.7 mg/dl (0.2-1.3); Blood Urea Nitrogen 12 mg/dl (7-17); Calcium 8.8 mg/dl (8.4-10.2); Carbon Dioxide 31 mmol/L (22.0-30.0); Creatinine Clearance Estimated 42 mL/min (50-200); Estimated Glomerular Filt Rate 61 ml/min (>60); GFR (African American) 74 ML/MIN (>60); Globulin 2.5 g/dL (1.3-3.2); Glucose 99 mg/dl (74-100); Total Protein,Serum 6.3 g/dl (6.3-8.2)
[2021-04-26 13:26] LABS: Thyroid Stimulating Hormone 1.32 uIU/mL (0.465-4.68)
--- NOTE | 2021-04-26 14:00 | PC.NURSE ---
pt states some relief of itching with meds given
[2021-04-26 14:21] LABS: Basophils # 0.1 K/mm3 (0-0.2); Basophils % 1.1 % (0.1-2.0); Eosinophils # 0.3 K/mm3 (0.0-0.4); Hematocrit 35.7 % (37.0-47.0); Hemoglobin 11.8 g/dL (12.2-16.2); Lymphocytes # 0.9 K/mm3 (0.7-4.5); Lymphocytes % 20.2 % (10-50); Mean Corpuscular Hemoglobin 30.5 pg (27.0-31.2); Mean Corpuscular Volume 92.4 fl (81-99); Mean Platelet Volume 7.2 fl (7.4-10.4); Monocytes # 0.3 K/mm3 (0.1-1.0); Monocytes % 6.9 % (1.7-9.3); Neutrophils % 65.8 % (37.0-80.0); Platelet Count 331 K/mm3 (142-424); Red Blood Count 3.87 M/mm3 (4.20-5.40); Red Cell Distribution Width 14.7 % (11.5-17.5); White Blood Count 4.5 K/mm3 (4.8-10.8)
--- NOTE | 2021-04-26 15:00 | PC.NURSE ---
up to bathroom with assist
== END 2021-04-26 15:50 | disposition home or self-care (01) ==
PROVIDERS: Emergency Provider Emergency Medicine; PCP Internal Medicine Adolescent Medicine
DX: L29.9 Pruritus, unspecified (principal); E78.5 Hyperlipidemia, unspecified; E03.9 Hypothyroidism, unspecified; I10 Essential (primary) hypertension; Z87.891 Personal history of nicotine dependence; Z79.899 Other long term (current) drug therapy
CPT/HCPCS: 80053; 84443; 85025; 99282

== ENCOUNTER 2021-05-11 16:20 | Emergency (ER) | payer MEDICARE, OTHER, SELFPAY ==
[2021-05-11 16:12] VITALS: BP 103/66; PULSE 76; RESP 18; TEMP 36.5; O2SAT 94; BMI 22.8
[2021-05-11 16:30] VITALS: BMI 22.8
--- NOTE | 2021-05-11 16:30 | XR_ITS ---
PROCEDURE INFORMATION: Exam: XR Chest Exam date and time: 05/11/2021 4:30 PM Age: 75 years old Clinical indication: Injury or trauma; Fall; Blunt trauma (contusions or hematomas); Injury date: 05/11/21; Injury details: Fell off friends porch TECHNIQUE: Imaging protocol: XR of the chest. Views: 4 or more views. COMPARISON: CR CLAVR CLAVICLE-RT 12/05/2016 3:36 PM FINDINGS: Airway: Patent Lungs: Lungs are clear. Pleural spaces: Unremarkable. No pleural effusion. No pneumothorax. Heart/Mediastinum: The heart is mildly enlarged. Bones/joints: Multiple linear lucencies partially visualized at the distal right clavicle. There are multiple linear lucencies noted in the right scapula and at the glenoid. Deformities in the lateral segments of the right 5th and 6th ribs. Evidence for bilateral chronic rotator cuff injury. Partially visualized lower lumbar spine fixation hardware, as well as distal left humeral fixation hardware. No other acutely displaced fractures are identified. IMPRESSION: 1. Findings at the distal right clavicle, right glenoid, and right scapula favor fractures. 2. Findings at the lateral segments of the right 5th and 6th ribs concerning for minimally displaced fractures. 3. No acute cardiopulmonary pathology noted. COMMENTS: Consider further evaluation with trauma protocol chest CT if clinically warranted.
--- NOTE | 2021-05-11 16:30 | CT_ITS ---
PROCEDURE INFORMATION: Exam: CT Cervical Spine Without Contrast Exam date and time: 05/11/2021 4:30 PM Age: 75 years old Clinical indication: Injury or trauma; Fall; Blunt trauma; Injury date: 05/11/21; Additional info: Fall off friends porch// TECHNIQUE: Imaging protocol: Computed tomography images of the cervical spine without contrast. Radiation optimization: All CT scans at this facility use at least one of these dose optimization techniques: automated exposure control; mA and/or kV adjustment per patient size (includes targeted exams where dose is matched to clinical indication); or iterative reconstruction. COMPARISON: CR XR MULTIPLE SPINE 6+V 02/19/2020 2:57 PM FINDINGS: Bones/joints: Multilevel degenerative changes of the vertebra are present, as manifested by multilevel anterior osteophytes, endplate sclerosis, and multilevel posterior disc osteophyte complexes. There is no evidence of acutely displaced fractures. There is no evidence of joint dislocation. No aggressive osseous lesions. Discs/Spinal canal/Neural foramina: The spinal canal is patent. There is no evidence of foraminal stenosis. [id number] degenerative changes at the atlantoaxial joint. Lungs: Lung apices are clear. Soft tissues: Unremarkable. IMPRESSION: No acute skeletal pathology.
--- NOTE | 2021-05-11 16:30 | XR_ITS ---
PROCEDURE INFORMATION: Exam: XR Pelvis Exam date and time: 05/11/2021 4:30 PM Age: 75 years old Clinical indication: Injury or trauma; Fall; Blunt trauma (contusions or hematomas); Bilateral; Pelvic region; Injury date: 05/11/21; Injury details: Fell off friends porch TECHNIQUE: Imaging protocol: XR pelvis. Views: 1 or 2 view. COMPARISON: CR XR PELVIS 1-2V 03/25/2021 1:50 PM FINDINGS: Bones/joints: Osseous anatomic alignment is well preserved. No acutely displaced fracture or dislocation. Joint spaces are well preserved. Soft tissues: There is no significant soft tissue swelling. IMPRESSION: No acute skeletal pathology.
--- NOTE | 2021-05-11 16:30 | CT_ITS ---
PROCEDURE INFORMATION: Exam: CT Head Without Contrast Exam date and time: 05/11/2021 4:30 PM Age: 75 years old Clinical indication: Injury or trauma; Fall; Blunt trauma (contusions or hematomas); Without loss of consciousness; Injury date: 05/11/21; Additional info: Fall off friends porch TECHNIQUE: Imaging protocol: Computed tomography of the head without contrast. Radiation optimization: All CT scans at this facility use at least one of these dose optimization techniques: automated exposure control; mA and/or kV adjustment per patient size (includes targeted exams where dose is matched to clinical indication); or iterative reconstruction. COMPARISON: CT SOFT TISSUE NECK WO CON 02/19/2020 2:54 PM FINDINGS: Brain: Age related brain involution is present. No acute intracranial hemorrhage, mass effect, midline shift, or brain herniation. Diffuse subcortical and periventricular white matter hypodensities are most in favor with chronic small vessel disease. Old lacunar infarct in the left basal ganglia. Cerebral ventricles: There is ex vacuo ventriculomegaly. Paranasal sinuses: Visualized sinuses are unremarkable. No fluid levels. Mastoid air cells: Visualized mastoid air cells are well aerated. Orbital cavity: There have been bilateral intraocular lens replacements. Vasculature: Intracranial atherosclerosis is present. Bones/joints: Linear lucency through the left aspect of the frontal bone (images 61-49 series 3). No other acutely displaced fractures are identified. No aggressive osseous lesions. Soft tissues: Unremarkable. IMPRESSION: 1. Findings in the frontal bone, concerning for a minimally displaced fracture of indeterminate time frame. Considering the lack of ancillary scalp soft tissue swelling, this is felt to be of chronic etiology. Consider correlation with any tenderness at this site. 2. No acute intracranial pathology is identified.
--- NOTE | 2021-05-11 16:30 | XR_ITS ---
PROCEDURE INFORMATION: Exam: XR Left Elbow Exam date and time: 05/11/2021 4:30 PM Age: 75 years old Clinical indication: Injury or trauma; Fall; Blunt trauma (contusions or hematomas); Elbow; Left; Injury date: 05/11/21; Injury details: Fell off friends porch; Additional info: Fall// previous surgery to her elbow in March and has limited motion of her left elbow due to that injury TECHNIQUE: Imaging protocol: XR Left elbow. Views: 1 or 2 views. COMPARISON: CR XR ELBOW LT MIN 3V 03/25/2021 2:01 PM FINDINGS: Bones/joints: Fixation hardware at the distal humerus and olecranon process. This is composed of large fixation plates and multiple screws. No evidence of hardware complications. Specifically, no evidence for hardware loosening or periprosthetic fractures. There is no evidence of acutely displaced fractures. There is no evidence of joint dislocation. No aggressive osseous lesions. There is no evidence of a joint effusion. Soft tissues: Focal soft tissue swelling at the dorsal aspect of the proximal forearm. Multiple stable square shaped radiopaque foreign bodies projecting in the soft tissues. IMPRESSION: 1. Focal swelling at the proximal aspect of the forearm, likely of posttraumatic etiology. 2. No acute skeletal pathology or hardware complications.
--- NOTE | 2021-05-11 17:18 | XR_ITS ---
PROCEDURE INFORMATION: Exam: XR Right Scapula Exam date and time: 05/11/2021 5:18 PM Age: 75 years old Clinical indication: Injury or trauma; Fall; Blunt trauma (contusions or hematomas); Shoulder; Right; Additional info: Fall pain TECHNIQUE: Imaging protocol: XR Right scapula, complete. COMPARISON: CR XR CHEST AP 05/11/2021 4:51 PM FINDINGS: Bones/joints: Linear displaced fracture to the superior border of the scapula. Multiple linear lucencies at the level of the glenoid, again concerning for fractures. Linear lucency through the scapular spine, favoring a displaced fracture. Comminuted fracture to the distal clavicle. No dislocation. Evidence for chronic rotator cuff injury. No other acutely displaced fractures are identified. Soft tissues: Visualized chest is unremarkable. Shoulder swelling. IMPRESSION: 1. Multiple scapular fractures, as detailed above. 2. Fracture to the distal clavicular head.
--- NOTE | 2021-05-11 17:18 | XR_ITS ---
PROCEDURE INFORMATION: Exam: XR Right Clavicle, Complete Exam date and time: 05/11/2021 5:18 PM Age: 75 years old Clinical indication: Injury or trauma; Fall; Blunt trauma (contusions or hematomas); Shoulder; Right; Additional info: Fall, pain TECHNIQUE: Imaging protocol: XR Right clavicle complete. Views: Any number of views. COMPARISON: CR CLAVR CLAVICLE-RT 12/05/2016 3:36 PM FINDINGS/IMPRESSION: Redemonstration of a comminuted fracture to the distal clavicular head. Redemonstration of several linear lucencies at the glenoid, favoring minimally displaced fractures. Redemonstration of linear lucencies at the scapular spine, again concerning for fractures. Mildly increased acromioclavicular distance, concerning for acromioclavicular joint injury. Several linear lucencies at the acromion, concerning for minimally displaced fractures. No other acutely displaced fractures are identified. There is no evidence of joint dislocation. No aggressive osseous lesions. Shoulder swelling. No acute findings in the visualized chest.
--- NOTE | 2021-05-11 17:18 | XR_ITS ---
PROCEDURE INFORMATION: Exam: XR Right Humerus Exam date and time: 05/11/2021 5:18 PM Age: 75 years old Clinical indication: Injury or trauma; Fall; Blunt trauma (contusions or hematomas); Arm, upper; Right; Additional info: Fall, pain TECHNIQUE: Imaging protocol: XR Right humerus. Views: 2 or more views. COMPARISON: CR XR SHOULDER RT MIN 2V 07/02/2020 1:39 PM FINDINGS/IMPRESSION: Redemonstration of a comminuted fracture to the distal clavicular head. Redemonstration of several linear lucencies at the glenoid, favoring minimally displaced fractures. Redemonstration of linear lucencies at the scapular spine, again concerning for fractures. Mildly increased acromioclavicular distance, concerning for acromioclavicular joint injury. Several linear lucencies at the acromion, concerning for minimally displaced fractures. No other acutely displaced fractures are identified. There is no evidence of joint dislocation. No aggressive osseous lesions. Shoulder swelling.
--- NOTE | 2021-05-11 17:29 | PC.NURSE ---
Calling [facility] MD[facility]
--- NOTE | 2021-05-11 17:36 | HMH.EDFALL ---
ED Disposition Clinical Impression: Fracture Disposition: Xfer Critical Access Hosp Condition on Discharge: Good Referrals: Elijah Cota MD [Primary Care Provider] - Forms: Transfer Record - ED - Critical Care Critical Care Time: Yes Attestation: On 05/11/21, the high probability of a clinically significant, sudden or life threatening deterioration of the following system(s) required my full and direct attention, intervention and personal management. The time I documented below is in addition to time spent performing reported procedures but includes the following listed in this critical care notation. Total Critical Care Time: 30 Vital system(s) involved:: Central Nervous System My critical care processes included: Assessment & monitoring of V/S, Initial and Re-exams, Coordinating Care, Medication Orders and management, Documentation Medical Decision Making - Medical Records Medical records reviewed: Yes: I reviewed the patient's medical records. - Gonzales Inquiry Pt receiving controlled substance: No Vital Signs: 05/11/21 16:12 05/11/21 18:14 05/11/21 18:30 Temperature 97.7 F 97.7 F Temperature Source Oral Pulse Rate 85 82 Pulse Rate [Left Radial] 76 Respiratory Rate 18 16 Blood Pressure 119/71 112/76 Blood Pressure [Right Arm] 103/66 L Blood Pressure Mean 87 91 Blood Pressure Mean [Right Arm] 78 Blood Pressure Source [Right Arm] Automatic Cuff Blood Pressure Position [Right Arm] Sitting 02 Sat by Pulse Oximetry 94 L 93 L 93 L Oxygen Delivery Method Room Air Room Air - Lab Data Lab results reviewed: Yes: I reviewed the patient's lab results. Orders (Tests/Meds): ED MEDICATIONS Discontinued Medications Generic Name Dose Route Start Last Admin Trade Name Freq PRN Reason Stop Dose Admin Hydromorphone HCl 0.5 mg 05/11/21 19:28 05/11/21 18:48 Hydromorphone 2mg/Ml Syringe IV 05/11/21 19:29 0.5 mg ONCE ONE Administration Medical Decision Narrative: Miss Xiao is a 75 yo female w/ no significant PMH , NO blood thinners who presents with mechanical fall down #1 large step. Patient endorsing chest pain on inspiration, headache posteriorly, (L) elbow pain, and buttock pain. Patient is neurovascularly intact on arrival and hemodynamically stable. Patient physical exam superficial lacerations over bilateral elbow, no sensory or motor changes on exam. Patient has no midline cervical tenderness. No abdominal pain. XR of the LUE, CXR and pelvis are obtained for further evaluation along w/ CT chest w/ contrast, CT head, CT C spine which shows, concern for (R) clavicle fracture, (R) scapular fracture, (R) glenoid fracture, (R) rib 5-6 fractures, and skull fracture. CT abdomen and pelvis and CT T/L spine pending. Patient is transferred to ED for further evaluation to be seen by trauma team for polytrauma. Fall HPI - General Chief Complaint: Fall Stated Complaint: Fall Time Seen by Provider: 05/11/21 16:25 Mode of Arrival: EMS Source of Information: Patient Limitations: No Limitations Description of Symptoms (Recalled from ER Triage Doc. by RN): c/o pain in head, butt, and sore in chest with she breaths after falling down her stair - History of Present Illness HPI Narrative: Miss Xiao is a 75 yo female w/ no significant PMH, NO blood thinners, who presents to the emergency department for mechanical fall down 1 large step. Patient reports she lost her balance and fell backwards hitting her head against cement. She denies LOC. She reports posterior head pain, chest pain during inspiration, (L) elbow pain, and buttock pain. She denies any sensory or motor changes. Patient has superficial lacerations to both elbow, hemodynamically stable. Patient had prior surgery to (L) elbow in Mar 2021. complaint: fall Onset (ago): hour(s) Fall from: down stairs (#) (down one step ) Fall witnessed: no Place fall occurred: home Loss of consciousness: none Prolonged down time: no
--- NOTE | 2021-05-11 17:41 | ECG_ITS ---
APPROVED REPORT Exam: Resting ECG HR:77 bpm ECG Measurements Heart Rate 77 AXES WA 208 P 62 QRSd 95 QRS 22 QT 388 T 57 QTc [address] DEVIATION AND MODERATE T-WAVE ABNORMALITY, CONSIDER LATERAL ISCHEMIA [-0.1+ mV T-WAVE IN I/aVL/V5/V6] ABNORMAL ECG UNCONFIRMED REPORT Electronically signed by : Elijah Cota MD 05/13/2021 21:05:10
--- NOTE | 2021-05-11 17:58 | PC.NURSE ---
CALLED [facility] AGAIN FOR TRAUMA TEAM , DR MONTIEL IS SPEAKING WITH DR CERVANTES
[2021-05-11 18:14] VITALS: BP 119/71; PULSE 85; O2SAT 93
[2021-05-11 18:30] VITALS: BP 112/76; PULSE 82; RESP 16; TEMP 36.5; O2SAT 93
--- NOTE | 2021-05-11 18:44 | HMH.ITSTN ---
we were waiting for labs to do remaining CT- Chest/abd pelvis with contrast and patient was transferred and taken by ambulance to . cancelled ct orders
== END 2021-05-11 18:32 | disposition short-term general hospital (02) ==
PROVIDERS: Emergency Provider Student in an Organized Health Care Education/Training Program; PCP Internal Medicine Adolescent Medicine
DX: S42.191A Fracture of other part of scapula, right shoulder, initial encounter for closed fracture (principal); S42.001A Fracture of unspecified part of right clavicle, initial encounter for closed fracture; S22.41XA Multiple fractures of ribs, right side, initial encounter for closed fracture; W10.9XXA Fall (on) (from) unspecified stairs and steps, initial encounter; Y92.019 Unspecified place in single-family (private) house as the place of occurrence of the external cause; I10 Essential (primary) hypertension; E78.5 Hyperlipidemia, unspecified; M81.0 Age-related osteoporosis without current pathological fracture; E03.9 Hypothyroidism, unspecified; Z87.891 Personal history of nicotine dependence
CPT/HCPCS: 70450; 71045; 72125; 72170; 73000; 73010; 73060; 73070; 93005; 99283

== ENCOUNTER → 2021-12-01 08:27 | Outpatient (CLI) | payer MEDICARE, OTHER, SELFPAY ==
--- NOTE | 2021-12-01 08:37 | XR_ITS ---
FINAL REPORT CLINICAL HISTORY: bilateral shoulder pain,,fall in feb 2021 COMPARISON: March 25, 2021 FINDINGS: LEFT SHOULDER Four views demonstrate no acute fracture or dislocation. There are moderate to severe degenerative changes of the acromioclavicular and glenohumeral joints. Superior subluxation of the humerus appears stable and may indicate a chronic rotator cuff tear. No soft tissue abnormality is seen. IMPRESSION: Moderate to severe degenerative change. Other findings may indicate a chronic rotator cuff tear, if indicated, a shoulder MRI may be helpful. Reviewed, Interpreted and Dictated by Jose Moore III, MD Transcribed by Ryanne Rutherford Authenticated and [facility]
--- NOTE | 2021-12-01 08:37 | XR_ITS ---
FINAL REPORT CLINICAL HISTORY: bilateral shoulder pain..fall back in feb 2021 COMPARISON: May 11, 2021 FINDINGS: RIGHT SHOULDER Three views of the right shoulder were obtained. There is no acute fracture or dislocation. There are severe degenerative changes of the acromioclavicular and glenohumeral joints. There is superior subluxation of the humerus. There is worsening of the widening of the acromioclavicular joint. There has been interval healing of the distal clavicle and scapular fractures. There is no soft tissue abnormality. IMPRESSION: Severe degenerative change. Superior subluxation of the humerus. Widening of the acromioclavicular joint, worse. Interval healing of the distal clavicle scapular fractures. Reviewed, Interpreted and Dictated by Jose Moore III, MD Transcribed by Ryanne Rutherford Authenticated and [facility]
== END ==
PROVIDERS: PCP Internal Medicine Adolescent Medicine; Visit Provider Orthopaedic Surgery
DX: M25.512 Pain in left shoulder (principal); M25.511 Pain in right shoulder
CPT/HCPCS: 73030

== ENCOUNTER → 2021-12-16 10:09 | Outpatient (CLI) | payer MEDICARE, OTHER, SELFPAY ==
--- NOTE | 2021-12-16 10:15 | XR_ITS ---
FINAL REPORT CLINICAL HISTORY: include sunrise views FINDINGS: LEFT KNEE 4 views of the left knee were obtained. There is no acute fracture or dislocation. 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 Visualized joint spaces are normally aligned. Soft tissues are unremarkable. IMPRESSION: No acute bony abnormality. Reviewed, Interpreted and Dictated by Anand Kaye MD Transcribed by Judy Blake Authenticated and [facility]
== END ==
PROVIDERS: PCP Internal Medicine Adolescent Medicine; Visit Provider Orthopaedic Surgery
DX: M25.562 Pain in left knee (principal)
CPT/HCPCS: 73564

== ENCOUNTER → 2022-03-25 08:46 | Outpatient (CLI) | payer MEDICARE, OTHER, SELFPAY ==
--- NOTE | 2022-03-25 08:51 | XR_ITS ---
FINAL REPORT CLINICAL HISTORY: left knee pain FINDINGS: LEFT KNEE 3 views of the left knee were obtained. There is no acute fracture or dislocation. Visualized joint spaces are normally aligned. There are mild degenerative changes. There is lateral compartment narrowing. There is a moderate joint effusion. There is a chronic calcification in the region of the distal patellar tendon. IMPRESSION: Mild degenerative changes with lateral compartment narrowing and a moderate joint effusion. No acute bony abnormality. Reviewed, Interpreted and Dictated by Jose Moore III, MD Transcribed by Ryanne Rutherford Authenticated and [facility]
== END ==
PROVIDERS: PCP Internal Medicine Adolescent Medicine; Visit Provider Orthopaedic Surgery
DX: M25.562 Pain in left knee (principal)
CPT/HCPCS: 73562

== ENCOUNTER → 2022-04-12 09:35 | Outpatient (POV) | payer MEDICARE, OTHER, SELFPAY ==
[2022-04-12 09:55] VITALS: BP 108/71; PULSE 78; RESP 18; O2SAT 97; BMI 22.3
--- NOTE | 2022-04-12 11:34 | EXP.PAIN.OV ---
HPI Data of Consult Patient: new to practice Consult date: 04/12/22 Requesting Physician: Margareth Anders APRN Primary Care Provider: Elijah Cota MD Consult Narrative Reason for consult: Left knee pain, right shoulder pain. History of present illness: Ms. Xiao is a 76 year old female who presents today as a new patient referral from Dr. Elijah Cota's office. Patient presents today with left knee pain and right shoulder pain. Patient states that her knee is currently worse. Patient states that she did fall several months back and fractured her right elbow and had surgery and repair. Patient denies any recent injury. Patient currently states that she uses [id number] medication that gives her some relief. She states she has not tried ice but she has tried heat and it does help. Patient is currently prescribed Voltaren cream from her family provider and states it does give her relief. Patient also states she has had prior knee injections as well as gel injections. Patient states that she did get good relief initially but not as effective as they were in the beginning. Patient states she has had physical therapy in the past but states it was not related to her knee pain. [facility] [phone] reviewed and appropriate. CC: Margareth Anders APRN [facility] Disclaimer: The information contained in this section may have been updated after the patient was seen, as this information can be updated by other users. Medical History Anemia Hyperlipidemia Hypertension Hypothyroidism Malignant melanoma of left shoulder Osteoporosis Thyroid disease Thyroid tumor, benign Surgical History History of colonoscopy History of lobectomy of thyroid Previous back surgery Family History Other Coronary artery disease Hypertension Stroke Social History (Updated 04/12/22 @ 09:59 by Amy Singh RN) Smoking Status: Former smoker alcohol intake: never substance use type: denies use current occupational status: retired Travel in the last 8 weeks: None household members: spouse housing: house caffeine: Yes Review of Systems Review of Systems Review of systems (narrative): Review of Systems: General: No recent weight changes, no fever, no sleep disturbances Respiratory: No cough, no shortness of air, no recurring pulmonary infections Cardiovascular/peripheral vascular: No chest pain, no palpitations, no edema, no shortness of breath Gastrointestinal: No new onset incontinence, normal bowel movements reported Genitourinary: No new onset incontinence Musculoskeletal: Left knee pain, right shoulder pain. Psychiatric: [Normal mood/affect] Neurological: [Denies weakness in extremities], [denies balance issues] Meds Home Medications and Allergies Home Medications Medication Instructions Recorded Confirmed Type atorvastatin 40 mg tablet (Lipitor) 40 mg PO DAILY Cholesterol 01/23/18 04/12/22 History levothyroxine 75 mcg tablet 50 mcg PO DAILY hypothyroid 01/23/18 04/12/22 History (Synthroid) omega-3 fatty acids 1,000 mg 1,000 mg PO DAILY Supplement 01/23/18 04/12/22 History capsule (Fish Oil Concentrate) temazepam 30 mg capsule 30 mg PO QHS PRN Sleep 01/23/18 04/12/22 History triamterene 37.5 1 cap PO DAILY Hypertension 01/23/18 04/12/22 History mg-hydrochlorothiazide 25 mg capsule (Dyazide) zoledronic acid 5 mg/100 mL in 5 mg IV .ONCE A YEAR Osteoporosis 05/30/19 04/12/22 History mannitol 5 %-water intravenous piggybck polyethylene glycol 3350 17 gram 17 g PO DAILYP PRN Constipation 05/31/19 04/12/22 Rx oral powder packet #14 packets hydrocodone 5 mg-acetaminophen 325 1 tab PO Q6HP PRN Severe Pain 5 03/25/21 04/12/22 Rx mg tablet days #20 tabs celecoxib 100 mg capsule 100 mg PO DAILY Pain 12/01/21 04/12/22 History archana
== END ==
PROVIDERS: PCP Internal Medicine Adolescent Medicine; Visit Provider Nurse Practitioner Family
DX: M17.0 Bilateral primary osteoarthritis of knee (principal); M25.562 Pain in left knee; M25.511 Pain in right shoulder
CPT/HCPCS: 99202; G0463

== ENCOUNTER 2022-04-20 08:31 | Day surgery (SDC) | payer MEDICARE, OTHER, SELFPAY ==
[2022-04-20 09:01] VITALS: BP 126/72; PULSE 80; RESP 18; TEMP 36.3; O2SAT 100; BMI 22.4
[2022-04-20 09:21] VITALS: BP 128/92; PULSE 75; RESP 18; O2SAT 98
[2022-04-20 09:22] VITALS: BP 128/92; PULSE 75; RESP 18; O2SAT 97
[2022-04-20 09:26] VITALS: BP 132/81; PULSE 69; RESP 18; O2SAT 95
--- NOTE | 2022-04-20 09:44 | EXP.PAIN.PRO ---
Procedure Date: 04/20/22 Time: 09:15 Anesthesiologist:: Marcelo Singer CRNA Complications:: None Pre-procedure Diagnosis:: Osteoarthritis left knee Post-procedure Diagnosis:: Same Indications for Procedure:: Very pleasant 76-year-old female who has long history of osteoarthritis. Left knee pain. She describes left knee pain as constant, dull, aching. She rates the pain 8/10. Procedure Details:: Left knee genicular block Informed consent was obtained and the risk and benefits of the procedure was explained to the patient. The patient was taken to the procedure room. The left knee was prepped using ChloraPrep. I placed 22-gauge needles into the area of the left superior medial genicular nerve, left superior lateral genicular nerve and left inferior medial genicular nerve. Needle placement was confirmed in AP and lateral views with dye. We then injected bupivacaine 0.25% 3 mL's and Depo-Medrol 25 mg into each area of the right superior medial genicular nerve, left superior lateral genicular nerve and left inferior medial genicular nerve. Patient tolerated the procedure well with no complications. Plan and Disposition:: Patient was discharged without incident.
== END 2022-04-20 09:26 | disposition home or self-care (01) ==
LOC: SC.PAINP 08:33
PROVIDERS: PCP Internal Medicine Adolescent Medicine; Visit Provider Nurse Anesthetist, Certified Registered
DX: M17.12 Unilateral primary osteoarthritis, left knee (principal); M25.562 Pain in left knee
CPT/HCPCS: 64454; J1040

== ENCOUNTER → 2022-05-06 11:09 | Outpatient (POV) | payer MEDICARE, OTHER, SELFPAY ==
[2022-05-06 11:25] VITALS: BP 104/76; PULSE 81; RESP 18; O2SAT 97; BMI 21.7
--- NOTE | 2022-05-06 11:26 | EXP.PAIN.SOA ---
[facility] Pain Management SOAP Note Subjective:: Patient is a pleasant 76-year-old female who presents today for follow-up of left genicular nerve block on 04/20/2022. We are currently treating the patient for left knee pain, right shoulder pain, osteoarthritis bilateral knees. Today she rates her pain a 4 out of 10. Patient denies any new trauma or injury. Patient denies any change location or type of pain she experiences. Patient does state that she had significant improvement following this injection of approximately 40 to 50% however it only lasted a couple of days. Patient states she was able to move around easier during those first couple of days with decreased pain. Patient states she has been holding off having a total knee replacement due to limited range of motion in her arms and knowing that she will have a longer rehab with her knee. Patient continues to use her Voltaren cream to provide significant improvement although only temporary. Patient is not on any current scheduled medications. Her Gonzales is [id number]. Its been reviewed and appropriate. Review of Systems: General: No recent weight changes, no fever, no sleep disturbances Respiratory: No cough, no shortness of air, no recurring pulmonary infections Cardiovascular/peripheral vascular: No chest pain, no palpitations, no edema, no shortness of breath Gastrointestinal: No new onset incontinence, normal bowel movements reported Genitourinary: No new onset incontinence Musculoskeletal: Left knee pain Psychiatric: [Normal mood/affect] Neurological: [Denies weakness in extremities], [denies balance issues] Objective:: Physical Exam: General: Alert and oriented x3, no acute distress, pleasant and cooperative Lungs: Respirations even and unlabored, symmetrical chest expansion Eyes: PERRL Musculoskeletal: Flexion and extension of left knee somewhat guarded secondary to pain, [antalgic gait noted] Neurological: Speech clear, no gross sensory deficit Assessment:: Left knee pain, right shoulder pain, osteoarthritis bilateral knees and shoulder Plan:: Patient continues to experience significant pain in her left knee with limited range of motion. I have discussed with the patient that she may benefit from repeating her left knee genicular nerve block. Risk and benefits were discussed with the patient. She would like to proceed forward with this plan of care. We will schedule her for her left genicular nerve block #2. Patient has been instructed to contact the clinic with any concerns before the next appointment. Dr. Wharton has reviewed this note and agrees with this plan of care. This note was dictated using voice recognition software and make contain errors or omissions. [facility] Disclaimer: The information contained in this section may have been updated after the patient was seen, as this information can be updated by other users. Medical History Anemia Hyperlipidemia Hypertension Hypothyroidism Malignant melanoma of left shoulder Osteoporosis Thyroid disease Thyroid tumor, benign Surgical History History of colonoscopy History of lobectomy of thyroid Previous back surgery Family History Other Coronary artery disease Hypertension Stroke Social History Smoking Status: Former smoker alcohol intake: never substance use type: denies use current occupational status: retired Travel in the last 8 weeks: None household members: spouse housing: house caffeine: Yes
== END ==
PROVIDERS: PCP Internal Medicine Adolescent Medicine; Visit Provider Nurse Practitioner Family
DX: M17.0 Bilateral primary osteoarthritis of knee (principal); M19.019 Primary osteoarthritis, unspecified shoulder; M25.511 Pain in right shoulder; M25.562 Pain in left knee
CPT/HCPCS: 99212; G0463

== ENCOUNTER 2022-05-11 07:52 | Day surgery (SDC) | payer MEDICARE, OTHER, SELFPAY ==
[2022-05-11 08:00] LABS: Microscopic, Urine URINE MICROSCOPIC (MICROSCOPIC)
[2022-05-11 08:50] VITALS: BP 124/72; PULSE 66; RESP 18; TEMP 36.7; O2SAT 95; BMI 21.7
[2022-05-11 09:08] LABS: Basophils % 0.8 % (0.1-2.0); Eosinophils % 0.6 % (0.1-12.0); Hematocrit 40.6 % (37.0-47.0); Hemoglobin 13.2 g/dL (12.2-16.2); Lymphocytes # 0.8 K/mm3 (0.7-4.5); Lymphocytes % 13.9 % (10-50); Mean Corpuscular HGB Conc 32.6 g/dL (31.8-35.4); Mean Corpuscular Hemoglobin 30.6 pg (27.0-31.2); Mean Platelet Volume 7.5 fl (7.4-10.4); Monocytes # 0.4 K/mm3 (0.1-1.0); Monocytes % 6.6 % (1.7-9.3); Neutrophils # 4.2 K/mm3 (1.8-7.8); Neutrophils % 77.9 % (37.0-80.0); Platelet Count 350 K/mm3 (142-424); Red Blood Count 4.31 M/mm3 (4.20-5.40); Red Cell Distribution Width 14.2 % (11.5-17.5); White Blood Count 5.3 K/mm3 (4.8-10.8)
[2022-05-11 09:12] VITALS: BP 156/84; PULSE 74; RESP 18; O2SAT 97
[2022-05-11 09:13] VITALS: BP 156/84; PULSE 74; RESP 18; O2SAT 97
--- NOTE | 2022-05-11 09:17 | EXP.PAIN.PRO ---
Procedure Date: 05/11/22 Time: 09:15 Anesthesiologist:: Marcelo Singer CRNA Complications:: None Pre-procedure Diagnosis:: Osteoarthritis left knee Post-procedure Diagnosis:: Same. Indications for Procedure:: Patient is a pleasant 76-year-old female who complains of left knee pain. She has chronic osteoarthritis multiple joints. She presents today for repeat left genicular nerve block. She reports 2 days of significant improvement terms of her left knee pain after her first genicular nerve block of the left knee. Today she rates her pain 8/10. Procedure Details:: Left knee genicular block Informed consent was obtained and the risk and benefits of the procedure was explained to the patient. The patient was taken to the procedure room. The left knee was prepped using ChloraPrep. I placed 22-gauge needles into the area of the left superior medial genicular nerve, left superior lateral genicular nerve and left inferior medial genicular nerve. Needle placement was confirmed in AP and lateral views with dye. We then injected bupivacaine 0.25% 3 mL's and Depo-Medrol 25 mg into each area of the left superior medial genicular nerve, left superior lateral genicular nerve and left inferior medial genicular nerve. Patient tolerated the procedure well with no complications. Plan and Disposition:: Patient was discharged without incident.
[2022-05-11 09:18] VITALS: BP 138/78; PULSE 68; RESP 18; O2SAT 95
[2022-05-11 10:20] LABS: T4 (Thyroxine) 11.5 ug/dl (5.53-11.0)
[2022-05-11 10:22] LABS: Appearance,Urine CLEAR (Clear); Bilirubin,Urine Negative (Negative); Blood, Urine Negative (Negative); Color,Urine YELLOW (Yellow); Glucose,Urine (UA) Negative (Negative); Ketones,Urine Negative (Negative); Leukocyte Esterase,Urine TRACE (Negative); Nitrate,Urine Negative (Negative); Protein,Urine Negative (Negative)
[2022-05-11 10:33] LABS: Thyroid Stimulating Hormone 3.14 uIU/mL (0.465-4.68)
[2022-05-11 10:51] LABS: Bacteria,Urine Trace /lpf; Squamous Epithelial Cell,Urine Occasional #/hpf (0-5); WBC,Urine Occasional #/hpf (0-3)
[2022-05-11 16:27] LABS: Alanine Aminotransferase 21 U/L (12-78); Albumin Level 3.9 g/dl (3.5-5.0); Albumin/Globulin Ratio 1.8 (1.1-1.8); Alkaline Phosphatase 87 U/L (38-126); Anion Gap 10.3 mEq/L (5-15); Aspartate Amino Transferase 31 U/L (14-36); Bilirubin,Total 0.9 mg/dl (0.2-1.3); Blood Urea Nitrogen 28 mg/dl (7-17); Calcium 8.8 mg/dl (8.4-10.2); Carbon Dioxide 30 mmol/L (22.0-30.0); Chloride 85 mmol/L (98-107); Creatinine Clearance Estimated 40 mL/min (50-200); Estimated Glomerular Filt Rate 61 ml/min (>60); GFR (African American) 74 ML/MIN (>60); Globulin 2.2 g/dL (1.3-3.2); Glucose 100 mg/dl (74-100); Potassium 3.3 mmoL/L (3.5-5.1); Sodium 122 mmol/L (136-145); Total Protein,Serum 6.1 g/dl (6.3-8.2)
[2022-05-11 16:45] LABS: Free Thyroxine Index 4.5 ug/dL (5.93-13.13); Triiodothryronine (T3) Uptake 39 % (23.5-40.5)
[2022-05-11 17:16] LABS: Vitamin B12 704 pg/mL (239-931)
== END 2022-05-11 09:18 | disposition home or self-care (01) ==
PROVIDERS: PCP Internal Medicine Adolescent Medicine; Visit Provider Nurse Anesthetist, Certified Registered
DX: M17.0 Bilateral primary osteoarthritis of knee (principal); M25.562 Pain in left knee; E03.9 Hypothyroidism, unspecified
CPT/HCPCS: 36415; 64454; 80053; 81001; 82607; 84436; 84443; 84479; 85025; J1040

== ENCOUNTER → 2022-05-28 08:54 | Outpatient (POV) | payer MEDICARE, OTHER, SELFPAY ==
[2022-05-28 09:12] VITALS: BP 148/82; PULSE 81; RESP 18; O2SAT 97; BMI 21.7
--- NOTE | 2022-05-28 09:36 | EXP.PAIN.SOA ---
[facility] Pain Management SOAP Note Subjective:: Patient is a pleasant 76-year-old female who presents today for follow-up of left genicular nerve block #2 on 05/11/2022. We are currently treating the patient for left knee pain, right shoulder pain, osteoarthritis bilateral knees. Today she states that she has had at least 50% improvement following this procedure. She states that on some days she feels like it is still continuing to provide additional relief however other days or not as well. Patient does state that she has been able to increase her activity with decreased pain symptoms. She was recently prescribed compounding cream that she states did give significant relief however it does have a very sticky consistency. Patient does describe her pain in her knee as a aching, throbbing sensation that is worse with increased activity. Patient is trying to hold off on the total knee replacement due to limited range of motion in her arms. Her Gonzales is [id number]. Its been reviewed and appropriate. Review of Systems: General: No recent weight changes, no fever, no sleep disturbances Respiratory: No cough, no shortness of air, no recurring pulmonary infections Cardiovascular/peripheral vascular: No chest pain, no palpitations, no edema, no shortness of breath Gastrointestinal: No new onset incontinence, normal bowel movements reported Genitourinary: No new onset incontinence Musculoskeletal: Left knee pain Psychiatric: [Normal mood/affect] Neurological: [Denies weakness in extremities], [denies balance issues] Objective:: Physical Exam: General: Alert and oriented x3, no acute distress, pleasant and cooperative Lungs: Respirations even and unlabored, symmetrical chest expansion Eyes: PERRL Musculoskeletal: Flexion and extension of left knee somewhat guarded secondary to pain, [antalgic gait noted] Neurological: Speech clear, no gross sensory deficit Assessment:: Left knee pain, osteoarthritis bilateral knees, right shoulder pain Plan:: Patient has gotten significant improvement following her second left genicular nerve block however she still continues to have pain with limited range of motion. I have discussed with the patient that she may benefit from a genicular ablation on this joint. Patient has had 2 different genicular nerve blocks that did provide significant relief of upwards of 50% however only lasting for a short period of time. Risk and benefits were discussed with the patient. She would like to proceed forward with this plan of care. Patient is not on any blood thinners. We will schedule her for a left genicular RFA. Patient has been instructed to contact the clinic with any concerns before the next appointment. Dr. Wharton has reviewed this note and agrees with this plan of care. This note was dictated using voice recognition software and make contain errors or omissions. [facility] Disclaimer: The information contained in this section may have been updated after the patient was seen, as this information can be updated by other users. Medical History Anemia Hyperlipidemia Hypertension Hypothyroidism Malignant melanoma of left shoulder Osteoporosis Thyroid disease Thyroid tumor, benign Surgical History History of colonoscopy History of lobectomy of thyroid Previous back surgery Family History Other Coronary artery disease Hypertension Stroke Social History Smoking Status: Former smoker alcohol intake: never substance use type: denies use current occupational status: retired Travel in the last 8 weeks: None household members: spouse housing: house caffeine: Yes
== END ==
PROVIDERS: PCP Internal Medicine Adolescent Medicine; Visit Provider Nurse Practitioner Family
DX: M17.0 Bilateral primary osteoarthritis of knee (principal); M25.562 Pain in left knee; M25.511 Pain in right shoulder
CPT/HCPCS: 99212; G0463

== ENCOUNTER 2022-06-08 09:51 | Day surgery (SDC) | payer MEDICARE, OTHER, SELFPAY ==
[2022-06-08 10:04] VITALS: BP 136/86; PULSE 68; RESP 18; TEMP 36.1; O2SAT 98; BMI 21.1
[2022-06-08 10:42] VITALS: BP 142/82; PULSE 81; RESP 18; O2SAT 98
[2022-06-08 10:54] VITALS: BP 142/82; PULSE 81; RESP 18; O2SAT 98
[2022-06-08 11:00] VITALS: BP 144/77; PULSE 75; RESP 18; O2SAT 98
--- NOTE | 2022-06-08 12:25 | P.PCN_ITS ---
Procedure Date: 06/08/22 Time: 09:30 Anesthesiologist:: Marcelo Singer CRNA Complications:: None Pre-procedure Diagnosis:: Osteoarthritis left knee. Chronic pain left knee. Post-procedure Diagnosis:: Same. Indications for Procedure:: This patient is a pleasant 76-year-old female that presents for left genicular nerve radiofrequency ablation. Patient had 10 to 14 days of significant improvement of her left knee pain following left genicular nerve block. Patient has significant history of osteoarthritis. She rates her pain 7/10. Procedure Details:: Procedure Details: Left knee genicular RFA Informed consent was obtained risk and benefits of the procedure were explained to the patient. Patient was taken the procedure room. The left knee was prepped using ChloraPrep. The skin and subcutaneous tissues were anesthetized using lidocaine. I placed 20-gauge RF needles into the superior lateral genicular nerve area of the superior medial genicular nerve area and inferior medial genicular nerve area we underwent sensory stimulation. There is good sensory stimulation at 1 V. We underwent motor stimulation. There was no motor stimulation at 3 V. We then anesthetized all 3 nerves with bupivacaine and Depo- Medrol. We then burned each genicular nerve superior lateral, superior medial and inferior medial 80 ?C for 4 minutes. Patient tolerated procedure well with no complications. Plan and Disposition:: Patient was discharged without incident.
== END 2022-06-08 11:00 | disposition home or self-care (01) ==
LOC: SC.PAINP 09:52
PROVIDERS: PCP Internal Medicine Adolescent Medicine; Visit Provider Nurse Anesthetist, Certified Registered
DX: M17.12 Unilateral primary osteoarthritis, left knee (principal); M25.562 Pain in left knee; G89.29 Other chronic pain
CPT/HCPCS: 64624; J1040

== ENCOUNTER → 2022-06-25 08:47 | Outpatient (POV) | payer MEDICARE, OTHER, SELFPAY ==
[2022-06-25 08:55] VITALS: BP 150/84; PULSE 73; RESP 18; O2SAT 97; BMI 21.1
--- NOTE | 2022-06-25 09:02 | EXP.PAIN.SOA ---
[facility] Pain Management SOAP Note Subjective:: Patient is a pleasant 76-year-old female who presents today for follow-up of left genicular nerve ablation on 06/08/2022. We are currently treating the patient for left knee pain, right shoulder pain, bilateral knee osteoarthritis. Today she states she has had significant improvement following this procedure and rates her pain a 0 out of 10. She states that she still occasionally will have pain around the lateral aspect of her knee however it is much more tolerable now. Patient's main complaint is the chronic stiffness. Patient states that she continues to have limited range of motion of her upper and lower extremities. Patient does use the compounding cream and it does provide significant improvement however she still states it is very sticky and sometimes she feels like her knees will stick together causing increased risk of falls. Patient is currently taking Celebrex 200 mg daily. She states she has been on this medication for at least a year and 1/2 to 2 years. She does not notice significant relief. She is asking if there is anything we can do additionally for her every day stiffness. Patient denies any cardiac or kidney issues. Her Gonzales is [id number]. Its been reviewed and appropriate. Review of Systems: General: No recent weight changes, no fever, no sleep disturbances Respiratory: No cough, no shortness of air, no recurring pulmonary infections Cardiovascular/peripheral vascular: No chest pain, no palpitations, no edema, no shortness of breath Gastrointestinal: No new onset incontinence, normal bowel movements reported Genitourinary: No new onset incontinence Musculoskeletal: Shoulder pain, knee pain Psychiatric: [Normal mood/affect] Neurological: [Denies weakness in extremities], [denies balance issues] Objective:: Physical Exam: General: Alert and oriented x3, no acute distress, pleasant and cooperative Lungs: Respirations even and unlabored, symmetrical chest expansion Eyes: PERRL Musculoskeletal: Flexion and extension of bilateral shoulders, left knee somewhat guarded secondary to pain, [antalgic gait noted] Neurological: Speech clear, no gross sensory deficit Assessment:: Left knee pain, right shoulder pain, bilateral knee osteoarthritis Plan:: Patient has had significant improvements of her pain symptoms in her left knee following the genicular ablation and does not require any additional injective therapy at this time. I have counseled the patient that I will start her on meloxicam 7.5 mg twice daily and provide a 14-day supply of this medication. She has been told to discontinue her Celebrex while taking this medication and not take any other medications such as Advil, naproxen, Aleve, etc. I have also spoken with her to take this medication with food to minimize GI upset. Patient will return to clinic in 1 month for reevaluation of symptoms, medication refill if indicated and plan of care. Patient has been instructed to contact the clinic with any concerns before the next appointment. Dr. Wharton has reviewed this note and agrees with this plan of care. This note was dictated using voice recognition software and make contain errors or omissions. [facility] Disclaimer: The information contained in this section may have been updated after the patient was seen, as this information can be updated by other users. Medical History Anemia Hyperlipidemia Hypertension Hypothyroidism Malignant melanoma of left shoulder Osteoporosis Thyroid disease Thyroid tumor, benign Surgical History History of colonoscopy History of lobectomy of thyroid Previous back surgery Family History Other Coronary artery disease Hypertension Stroke Social History Smoking Status: Former s
== END | disposition home or self-care (01) ==
PROVIDERS: PCP Internal Medicine Adolescent Medicine; Visit Provider Nurse Practitioner Family
DX: M17.0 Bilateral primary osteoarthritis of knee (principal); M25.511 Pain in right shoulder; M25.562 Pain in left knee
CPT/HCPCS: 99212; G0463

== ENCOUNTER → 2022-07-22 11:17 | Outpatient (POV) | payer MEDICARE, OTHER, SELFPAY ==
[2022-07-22 11:45] VITALS: BP 130/82; PULSE 83; RESP 18; TEMP 36.7; O2SAT 99; BMI 19.8
--- NOTE | 2022-07-22 12:08 | EXP.PAIN.SOA ---
[facility] Pain Management SOAP Note Subjective:: Patient is a pleasant 76-year-old female who presents today for follow-up.? We are currently treating the patient for left knee pain, right shoulder pain, bilateral knee osteoarthritis.? Today she rates her pain a 6 out of 10. She states she continues to have some stiffness and soreness in her left knee however it has done much better following the genicular ablation done in May. She does state her pain today is more prominent in her neck and bilateral shoulders. She does describe this as an aching, throbbing sensation that is worse with increased activity. Patient states the pain does interfere with her ability to perform activities of daily living such as cooking and cleaning. Patient is interested in getting an injection for this pain. Patient does continue to use Voltaren cream and did just recently reorder her compounding cream. Patient states the cream does work well however that she has to be very careful due to the stickiness and that frequently her knees will stick together and she has to worry about stumbling. At our last visit we did try meloxicam however she states she did not notice any additional improvement compared to her previous Celebrex. She was given a 2-week dose of this medication and she states following that she did go back to her Celebrex. She does continue to have the overall stiffness that she believes is related to arthritis partially. Patient denies any kidney or heart issues. She is currently prescribed temazepam 30 mg daily from her primary care doctor. Her Gonzales is [id number]. Its been reviewed and appropriate. Review of Systems: General: No recent weight changes, no fever, no sleep disturbances Respiratory: No cough, no shortness of air, no recurring pulmonary infections Cardiovascular/peripheral vascular: No chest pain, no palpitations,? no edema, no shortness of breath Gastrointestinal: No new onset incontinence, normal bowel movements reported Genitourinary: No new onset incontinence Musculoskeletal: Neck pain, bilateral shoulder pain Psychiatric: [Normal mood/affect] Neurological: [Denies weakness in extremities], [denies balance issues] Objective:: Physical Exam: General: Alert and oriented x3, no acute distress, pleasant and cooperative Lungs: Respirations even and unlabored, symmetrical chest expansion Eyes: PERRL Musculoskeletal: Flexion and extension of cervical [spine] somewhat guarded secondary to pain, [antalgic gait noted] Neurological: Speech clear, no gross sensory deficit TECHNIQUE: Imaging protocol: Computed tomography images of the cervical spine without contrast. Radiation optimization: All CT scans at this facility use at least one of these dose optimization techniques: automated exposure control; mA and/or kV adjustment per patient size (includes targeted exams where dose is matched to clinical indication); or iterative reconstruction. COMPARISON: CR XR MULTIPLE SPINE 6+V 02/19/2020 2:57 PM FINDINGS: Bones/joints: Multilevel degenerative changes of the vertebra are present, as manifested by multilevel anterior osteophytes, endplate sclerosis, and multilevel posterior disc osteophyte complexes. There is no evidence of acutely displaced fractures. There is no evidence of joint dislocation. No aggressive osseous lesions. Discs/Spinal canal/Neural foramina: The spinal canal is patent. There is no evidence of foraminal stenosis. [id number] degenerative changes at the atlantoaxial joint. Lungs: Lung apices are clear. Soft tissues: Unremarkable. IMPRESSION: No acute skeletal pathology. Assessment:: Degenerative disc disease of cervical spine with cervical radiculopathy symptoms, left knee pain, right shoulder pain, bilateral knee osteoarthritis Plan:: Patient is experiencing worsening pain in her neck with radiating symptoms into her upper extremities.
== END | disposition home or self-care (01) ==
PROVIDERS: PCP Internal Medicine Adolescent Medicine; Visit Provider Nurse Practitioner Family
DX: M50.123 Cervical disc disorder at C6-C7 level with radiculopathy (principal); M17.0 Bilateral primary osteoarthritis of knee; M25.562 Pain in left knee; M25.511 Pain in right shoulder
CPT/HCPCS: 99212; G0463

== ENCOUNTER 2022-10-23 18:03 | Observation (INO) | payer MEDICARE, OTHER, SELFPAY ==
[2022-10-23] VITALS (9 sets, daily range): BP systolic 112–145; BP diastolic 75–91; PULSE 77–100; RESP 18–19; TEMP 36.7–37.2; O2SAT 96–100; BMI 18.5
--- NOTE | 2022-10-23 19:03 | CT_ITS ---
PROCEDURE INFORMATION: Exam: CT Abdomen And Pelvis Without Contrast Exam date and time: 10/23/2022 7:32 PM Age: 77 years old Clinical indication: Other: Inability to urinate TECHNIQUE: Imaging protocol: Computed tomography of the abdomen and pelvis without contrast. Radiation optimization: All CT scans at this facility use at least one of these dose optimization techniques: automated exposure control; mA and/or kV adjustment per patient size (includes targeted exams where dose is matched to clinical indication); or iterative reconstruction. REPORTING DATA: Count of CT and Cardiac NM exams in prior 12 months: This patient has received 0 known CTs and 0 known cardiac nuclear medicine studies in the 12 months prior to the current study. COMPARISON: CR XR PELVIS 1-2V 05/11/2021 4:51 PM FINDINGS: Lungs: Bibasilar atelectasis versus parenchymal scarring. Liver: Hepatic steatosis. Low lying right lobe of the liver. Postoperative changes consistent with anterior fusion L1 through L3. 6 mm anterolisthesis of L4 with respect to L5. Gallbladder and bile ducts: Normal. No calcified stones. No ductal dilation. Pancreas: Normal. No ductal dilation. Spleen: Normal. No splenomegaly. Adrenal glands: Normal. No mass. Kidneys and ureters: Normal. No hydronephrosis. Stomach and bowel: Marked stool burden. 7.5 cm dilatation of the rectosigmoid colon with retained impacted fecal material. Subtle stranding of the surrounding mesenteric fat. Appendix: No evidence of appendicitis. Intraperitoneal space: See Stomach and bowel finding. Vasculature: Scattered regions of atherosclerotic vascular calcification within the abdominal aorta and common iliac arteries. Lymph nodes: Unremarkable. No enlarged lymph nodes. Urinary bladder: The bladder is mildly effaces anteriorly by the distended rectum Reproductive: Unremarkable as visualized. Bones/joints: See Liver finding. Soft tissues: Unremarkable. Other findings: Posttraumatic deformity at the level of the 2nd and 3rd sacral segments. Findings appear chronic. IMPRESSION: 1. Findings compatible with stercoral colitis. Associated mild effacement of the posterior margin of the bladder with anterior displacement. 2. Please see above report for discussion of nonacute findings.
--- NOTE | 2022-10-23 19:03 | HMH.EDGENADL ---
Discharge Plan Disposition Patient Disposition: Admitted Condition: Good Clinical Impressions Clinical Impression: Fecal impaction, ESTELITA (acute kidney injury), Acute urinary retention, Acute UTI Discharge ED Provider: Margareth Davila General Adult HPI General Chief complaint: Urogenital-Female Stated complaint: trouble urinating Time Seen by Provider: 10/23/22 18:58 Mode of Arrival: Wheelchair Source of Information: Patient Limitations: Physical Limitations Description of Symptoms (Recalled from ER Triage Doc. by RN): Patient reports difficulty urinating for a couple of days. States that when she does urinate it isn't very much. History of Present Illness HPI narrative: This patient is a 77-year-old female with a history of chronic constipation presenting to the emergency department for evaluation with concern for worsening constipation and inability to urinate since this morning. She notes difficulty urinating for the past few days, but it is acutely worsened today. She states that she has frequency and urgency, when she goes she can only pass a drop. She also notes she has been constipated despite trying an extensive bowel regimen at home. Nothing seems to make her symptoms better or worse. She denies any fevers, chills, nausea, vomiting, or other concerns. Related Data Home Medications Medication Instructions Recorded Confirmed atorvastatin 40 mg tablet (Lipitor) 40 mg PO DAILY Cholesterol 01/23/18 10/12/22 levothyroxine 75 mcg tablet 50 mcg PO DAILY hypothyroid 01/23/18 10/12/22 (Synthroid) omega-3 fatty acids 1,000 mg 1,000 mg PO DAILY Supplement 01/23/18 10/12/22 capsule (Fish Oil Concentrate) temazepam 30 mg capsule 30 mg PO QHS PRN Sleep 01/23/18 10/12/22 triamterene 37.5 1 cap PO DAILY Hypertension 01/23/18 10/12/22 mg-hydrochlorothiazide 25 mg capsule (Dyazide) zoledronic acid 5 mg/100 mL in 5 mg IV .ONCE A YEAR Osteoporosis 05/30/19 10/12/22 mannitol 5 %-water intravenous piggybck celecoxib 100 mg capsule 100 mg PO DAILY Pain 12/01/21 10/12/22 escitalopram oxalate 10 mg tablet 10 mg PO DAILY MOOD 12/01/21 10/12/22 omeprazole 20 mg capsule,delayed 20 mg PO DAILY STOMACH 12/01/21 10/12/22 release propranolol 10 mg tablet 10 mg PO BID BLOOD PRESSURE 12/01/21 10/12/22 Previous Rx's Medication Instructions Recorded polyethylene glycol 3350 17 gram 17 g PO DAILYP PRN Constipation 05/31/19 oral powder packet #14 packets hydrocodone 5 mg-acetaminophen 325 1 tab PO Q6HP PRN Severe Pain 5 03/25/21 mg tablet days #20 tabs meloxicam 7.5 mg tablet 7.5 mg PO BID #28 tabs 06/25/22 diclofenac sodium 75 mg 75 mg PO BID #60 tabs 07/22/22 tablet,delayed release diclofenac sodium 75 mg 75 mg PO BID #60 tabs 08/12/22 tablet,delayed release Allergies Allergy/AdvReac Type Severity Reaction Status Date / Time aspirin AdvReac Intermediate Verified 10/12/22 14:20 [facility] Disclaimer: The information contained in this section may have been updated after the patient was seen, as this information can be updated by other users. Medical History Anemia Hyperlipidemia Hypertension Hypothyroidism Malignant melanoma of left shoulder Osteoporosis Thyroid disease Thyroid tumor, benign Surgical History History of colonoscopy History of lobectomy of thyroid Previous back surgery Family History Other Coronary artery disease Hypertension Stroke Social History Smoking Status: Never smoker alcohol intake: never substance use type: denies use current occupational status: other Travel in the last 8 weeks: None household members: spouse housing: house caffeine: Yes ROS Obtained: Yes All systems reviewed & no additional complaints except as documented Physica
[2022-10-23 19:09] LABS: Appearance,Urine CLOUDY (Clear); Bilirubin,Urine Negative (Negative); Blood, Urine 1+ (Negative); Color,Urine YELLOW (Yellow); Glucose,Urine (UA) Negative (Negative); Ketones,Urine TRACE (Negative); Leukocyte Esterase,Urine 3+ (Negative); Microscopic, Urine URINE MICROSCOPIC (MICROSCOPIC); Nitrate,Urine Negative (Negative); PH,Urine 5.5 (5.0-8.5); Protein,Urine TRACE (Negative); Specific Gravity, Urine 1.015 (1.005-1.030); Urobilinogen,Urine 0.2 EU/dl (0.2)
[2022-10-23 19:23] LABS: WBC,Urine TNTC #/hpf (0-3)
[2022-10-23 19:24] LABS: Bacteria,Urine 3+ /lpf; Squamous Epithelial Cell,Urine Occasional #/hpf (0-5)
[2022-10-23 20:39] LABS: Basophils % 0.4 % (0.1-2.0); Eosinophils # 0.1 K/mm3 (0.0-0.4); Hematocrit 36.2 % (37.0-47.0); Hemoglobin 12.1 g/dL (12.2-16.2); Lymphocytes # 0.9 K/mm3 (0.7-4.5); Lymphocytes % 11.8 % (10-50); Mean Corpuscular HGB Conc 33.4 g/dL (31.8-35.4); Mean Corpuscular Hemoglobin 31.5 pg (27.0-31.2); Mean Corpuscular Volume 94.5 fl (81-99); Mean Platelet Volume 7.7 fl (7.4-10.4); Monocytes # 0.4 K/mm3 (0.1-1.0); Monocytes % 5.4 % (1.7-9.3); Neutrophils # 5.9 K/mm3 (1.8-7.8); Neutrophils % 81.5 % (37.0-80.0); Platelet Count 330 K/mm3 (142-424); Red Blood Count 3.83 M/mm3 (4.20-5.40); Red Cell Distribution Width 13.6 % (11.5-17.5); White Blood Count 7.2 K/mm3 (4.8-10.8)
[2022-10-23 20:49] LABS: Alanine Aminotransferase 14 U/L (12-78); Albumin Level 3.9 g/dl (3.5-5.0); Albumin/Globulin Ratio 1.7 (1.1-1.8); Alkaline Phosphatase 95 U/L (38-126); Anion Gap 10.4 mEq/L (5-15); Aspartate Amino Transferase 33 U/L (14-36); Bilirubin,Total 0.5 mg/dl (0.2-1.3); Blood Urea Nitrogen 53 mg/dl (7-17); Calcium 9.6 mg/dl (8.4-10.2); Carbon Dioxide 34 mmol/L (22.0-30.0); Chloride 86 mmol/L (98-107); Creatinine Clearance Estimated 28 mL/min (50-200); Estimated Glomerular Filt Rate 44 ml/min (>60); GFR (African American) 53 ML/MIN (>60); Globulin 2.3 g/dL (1.3-3.2); Glucose 113 mg/dl (74-100); Potassium 3.4 mmoL/L (3.5-5.1); Sodium 127 mmol/L (136-145); Total Protein,Serum 6.2 g/dl (6.3-8.2)
--- NOTE | 2022-10-23 21:38 | PC.NURSE ---
Dr. Liset bartlett for ED MD
[2022-10-24] VITALS: BP 123/79; PULSE 78; RESP 18; TEMP 36.6; O2SAT 97
--- NOTE | 2022-10-24 00:07 | PC.NURSE ---
pt arrived to floor at this time
--- NOTE | 2022-10-24 00:40 | PC.NURSE ---
clarified enema administration with ER staff; enema was not administered prior to transfer. RADHA Blankenship aware.
[2022-10-24 04:00] VITALS: BP 123/77; PULSE 76; RESP 20; TEMP 36.8; O2SAT 96; BMI 19.7
[2022-10-24 07:13] LABS: Basophils % 0.2 % (0.1-2.0); Eosinophils # 0.1 K/mm3 (0.0-0.4); Eosinophils % 1.1 % (0.1-12.0); Hematocrit 35.1 % (37.0-47.0); Lymphocytes # 0.8 K/mm3 (0.7-4.5); Lymphocytes % 10.2 % (10-50); Mean Corpuscular HGB Conc 34.2 g/dL (31.8-35.4); Mean Corpuscular Hemoglobin 31.9 pg (27.0-31.2); Mean Corpuscular Volume 93.2 fl (81-99); Mean Platelet Volume 8.6 fl (7.4-10.4); Monocytes # 0.4 K/mm3 (0.1-1.0); Neutrophils # 6.5 K/mm3 (1.8-7.8); Neutrophils % 83.5 % (37.0-80.0); Platelet Count 319 K/mm3 (142-424); Red Blood Count 3.77 M/mm3 (4.20-5.40); Red Cell Distribution Width 13.6 % (11.5-17.5); White Blood Count 7.7 K/mm3 (4.8-10.8)
[2022-10-24 07:17] VITALS: BP 124/78; PULSE 78; RESP 18; TEMP 36.8; O2SAT 95
[2022-10-24 07:21] LABS: Anion Gap 8.2 mEq/L (5-15); Blood Urea Nitrogen 37 mg/dl (7-17); Calcium 9.1 mg/dl (8.4-10.2); Carbon Dioxide 31 mmol/L (22.0-30.0); Chloride 91 mmol/L (98-107); Creatinine Clearance Estimated 36 mL/min (50-200); Estimated Glomerular Filt Rate 70 ml/min (>60); GFR (African American) 84 ML/MIN (>60); Glucose 88 mg/dl (74-100); Potassium 3.2 mmoL/L (3.5-5.1); Sodium 127 mmol/L (136-145)
--- NOTE | 2022-10-24 08:15 | EXP.HP ---
History of Present Illness *Admission Date: 10/23/22 *Reason for visit:: Inability to urinate or defecate *History of present illness: 77-year-old female with severe, degenerative and debilitating widespread osteoarthritis, with significant mobility issues who struggles with appetite issues and chronic constipation. She has been placed on diclofenac by pain clinic and notes that even though this does help her arthritis symptoms she notes constipation with this. At home she takes Dulcolax, fiber occasionally, but really struggles having bowel movements. She noticed that she not urinated since the morning of presentation to the ER, after several hours of not urinating reported to the ER. Work-up revealed an acute kidney injury, creatinine 1.2 which is normally 0.8 for her which is a significant increase based on her low body weight and age, and CT scan showed evidence of a fecal impaction and UA showed evidence of urinary tract infection. She was admitted from the ER with orders for mineral oil enema. This was given when she got up to the floor with no solid stool results but she notes that she has been passing a lot more gas this morning. Remains somewhat uncomfortable but feels better in regards to energy after IV fluids. [facility] Disclaimer: The information contained in this section may have been updated after the patient was seen, as this information can be updated by other users. Medical History Anemia Hyperlipidemia Hypertension Hypothyroidism Malignant melanoma of left shoulder Osteoporosis Thyroid disease Thyroid tumor, benign Surgical History History of colonoscopy History of lobectomy of thyroid Previous back surgery Family History Other Coronary artery disease Hypertension Stroke Social History (Updated 10/24/22 @ 00:27 by Venita Zee RN) Smoking Status: Never smoker alcohol intake: never substance use type: denies use current occupational status: other Travel in the last 8 weeks: None household members: spouse housing: house caffeine: Yes Review of Systems Review of Systems Review of systems:: pertinent systems reviewed and negative unless documented below Meds Home Medications and Allergies Home Medications Medication Instructions Recorded Confirmed Type atorvastatin 40 mg tablet (Lipitor) 40 mg PO DAILY Cholesterol 01/23/18 10/24/22 History levothyroxine 75 mcg tablet 50 mcg PO DAILY hypothyroid 01/23/18 10/24/22 History (Synthroid) omega-3 fatty acids 1,000 mg 1,000 mg PO DAILY Supplement 01/23/18 10/12/22 History capsule (Fish Oil Concentrate) temazepam 30 mg capsule 30 mg PO QHS PRN Sleep 01/23/18 10/24/22 History triamterene 37.5 1 cap PO DAILY Hypertension 01/23/18 10/24/22 History mg-hydrochlorothiazide 25 mg capsule (Dyazide) zoledronic acid 5 mg/100 mL in 5 mg IV .ONCE A YEAR Osteoporosis 05/30/19 10/12/22 History mannitol 5 %-water intravenous piggybck polyethylene glycol 3350 17 gram 17 g PO DAILYP PRN Constipation 05/31/19 10/24/22 Rx oral powder packet #14 packets hydrocodone 5 mg-acetaminophen 325 1 tab PO Q6HP PRN Severe Pain 5 03/25/21 10/12/22 Rx mg tablet days #20 tabs celecoxib 100 mg capsule 100 mg PO DAILY Pain 12/01/21 10/12/22 History escitalopram oxalate 10 mg tablet 10 mg PO DAILY MOOD 12/01/21 10/12/22 History omeprazole 20 mg capsule,delayed 20 mg PO DAILY STOMACH 12/01/21 10/24/22 History release propranolol 10 mg tablet 10 mg PO BID BLOOD PRESSURE 12/01/21 10/24/22 History meloxicam 7.5 mg tablet 7.5 mg PO BID #28 tabs 06/25/22 10/12/22 Rx diclofenac sodium 75 mg 75 mg PO BID #60 tabs 07/22/22 10/12/22 Rx tablet,delayed release diclofenac sodium 75 mg 75 mg PO BID #60 tabs 08/12/22 10/24/22 Rx tablet,delayed release New Prescriptions to Start Pres
--- NOTE | 2022-10-24 10:54 | HMH.PHAINT1 ---
Pharmacy Intervention Comments: MEDICATION RECONCILIATION COMPLETED ON PATIENT USING EXTERNAL FILL HISTORY FROM PHARMACY. -DINESH COURTNEY, ALFONSOD
[2022-10-24 15:26] VITALS: BP 135/79; PULSE 83; RESP 18; TEMP 36.6; O2SAT 97
--- NOTE | 2022-10-24 16:34 | HMH.PTEV ---
Physical Therapy Evaluation Rehab PT IP Evaluation Start: 10/24/22 08:08 Freq: ONCE Status: Active Protocol: Document 10/24/22 16:15 BRADLEY (Rec: 10/24/22 16:33 BRADLEY [id number]) Subjective/History History History Patient is a 77 year old female admitted to [facility] 10/23/22 secondary to ESTELITA, UTI and fecal impaction. Work-up indicates acute kidney injury. Patient lived at home alone prior to admittance. Patient voiced intention to return home upon discharge. Patient reports previous independent with ADL's, requiring SPC for ambulation. She reports that she also has a RW at home, but does not use it. Subjective Subjective I'd like to go home once I can get rid of this constapation. Rehab PT IP Eval Objective Appearance Patient Behavior Appropriate,Cooperative, Fearful Patient Orientation Person,Place,Day of Week Difficulty following instructions none Speech Pattern Clear,Appropriate Ambulation Patient Able to Ambulate No Ambulation Observation IP General Gait Pattern Observation Antalgic Gait,Decrease Weight Bear (R) Ambulation Distance (feet) 10 Ambulation Assistive Device Standard Walker Ambulation Ability Contact Guard/Hand Hold Balance Ability to Arise Able, uses arms to help Sitting Balance Steady, safe Standing Balance Steady, wide stance Dynamic Sitting Balance Ability Good Dynamic Standing Balance Ability Good Transfers Bed Transfer Ability Supervision/Stand by Sit to Stand Bed Transfer Ability Contact Guard/Hand Hold Pain Right Knee Pain Intensity 5 ROM All Extremities PT ROM Status WFL MMT All Extremities PT MMT WFL Rehab PT IP prob,goals,plan Problems Date of Evaluation: 10/24/22 PT IP Problems Bed Mobility,Transfers,Gait Rehab Potential Rehab Potential Good Plan PT Intervention Plan Bed Mobility,Transfers,Gait PT Plan Frequency BID Duration LOS Discharge Goals Bed Transfer Ability Independent Sit to Stand Chair Transfer Ability Supervision/Stand by Ambulation Distance (feet) 20 Discharge Plan PT Discharge Plan
--- NOTE | 2022-10-24 16:38 | PC.NURSE ---
ONE EXTRA LARGE BM THIS SHIFT. TOLERATING DIET WELL. DENIES ABD PAIN.
[2022-10-24 20:00] VITALS: BP 135/73; PULSE 74; RESP 20; TEMP 36.7; O2SAT 96
[2022-10-25] VITALS: BP 107/68; PULSE 67; RESP 20; TEMP 35.9; O2SAT 99
[2022-10-25 04:00] VITALS: BP 124/74; PULSE 66; RESP 16; TEMP 36.2; O2SAT 99; BMI 19.3
--- NOTE | 2022-10-25 05:56 | PC.NURSE ---
LAC infiltrated. 22g placed in LFA.
[2022-10-25 07:19] LABS: Basophils % 0.5 % (0.1-2.0); Eosinophils # 0.1 K/mm3 (0.0-0.4); Eosinophils % 2.2 % (0.1-12.0); Hematocrit 36.5 % (37.0-47.0); Lymphocytes # 1.1 K/mm3 (0.7-4.5); Lymphocytes % 18.1 % (10-50); Mean Corpuscular HGB Conc 32.9 g/dL (31.8-35.4); Mean Corpuscular Volume 94.3 fl (81-99); Mean Platelet Volume 7.6 fl (7.4-10.4); Monocytes # 0.3 K/mm3 (0.1-1.0); Monocytes % 5.7 % (1.7-9.3); Neutrophils # 4.3 K/mm3 (1.8-7.8); Neutrophils % 73.5 % (37.0-80.0); Platelet Count 315 K/mm3 (142-424); Red Blood Count 3.87 M/mm3 (4.20-5.40); Red Cell Distribution Width 13.5 % (11.5-17.5); White Blood Count 5.8 K/mm3 (4.8-10.8)
[2022-10-25 07:25] LABS: Anion Gap 5.3 mEq/L (5-15); Blood Urea Nitrogen 21 mg/dl (7-17); Calcium 8.5 mg/dl (8.4-10.2); Carbon Dioxide 33 mmol/L (22.0-30.0); Chloride 93 mmol/L (98-107); Creatinine Clearance Estimated 35 mL/min (50-200); Estimated Glomerular Filt Rate 81 ml/min (>60); GFR (African American) 98 ML/MIN (>60); Glucose 87 mg/dl (74-100); Potassium 3.3 mmoL/L (3.5-5.1); Sodium 128 mmol/L (136-145)
[2022-10-25 08:00] VITALS: BP 118/72; PULSE 76; RESP 16; TEMP 36.4; O2SAT 95
--- NOTE | 2022-10-25 08:31 | EXP.DC.SUM ---
General Admission date:: 10/24/22 Discharge date: 10/25/22 HPI HPI HPI: 77-year-old female with severe, degenerative and debilitating widespread osteoarthritis, with significant mobility issues who struggles with appetite issues and chronic constipation. She has been placed on diclofenac by pain clinic and notes that even though this does help her arthritis symptoms she notes constipation with this. At home she takes Dulcolax, fiber occasionally, but really struggles having bowel movements. She noticed that she not urinated since the morning of presentation to the ER, after several hours of not urinating reported to the ER. Work-up revealed an acute kidney injury, creatinine 1.2 which is normally 0.8 for her which is a significant increase based on her low body weight and age, and CT scan showed evidence of a fecal impaction and UA showed evidence of urinary tract infection. She was admitted from the ER with orders for mineral oil enema. This was given when she got up to the floor with no solid stool results but she notes that she has been passing a lot more gas this morning. Remains somewhat uncomfortable but feels better in regards to energy after IV fluids. Hospital Course Hospital Course Hospital Course: Patient was admitted, found to have a UTI with Citrobacter, sensitive to ceftriaxone. [place] much better after treatment for this. ESTELITA was treated with IV fluids and her creatinine normalized. Constipation was treated with mag citrate. Yesterday she had 4 large bowel movements and felt much better. Plan will be to discharge home today with MiraLAX daily, Senokot twice daily. Have given her detailed instructions about this. Will prescribe Omnicef for her UTI. Follow-up will be as scheduled my office. She will follow-up with orthopedics tomorrow for knee replacement possibility issues. Exam Data for Last 24 hours Vital signs and Labs for Last 24 Hours: Temp Pulse Resp BP Pulse Ox O2 Del Method 97.5 F L 76 16 118/72 95 Room Air 10/25/22 08:00 10/25/22 08:00 10/25/22 08:00 10/25/22 08:00 10/25/22 08:00 10/25/22 08:00 Laboratory Results - last 24 hr 10/25/22 06:37: WBC 5.8, RBC 3.87 L, Hgb 12.0 L, Hct 36.5 L, MCV 94.3, MCH 31.0, MCHC 32.9, RDW 13.5, Plt Count 315, MPV 7.6, Neut % (Auto) 73.5, Lymph % (Auto) 18.1, [place] % (Auto) 5.7, Eos % (Auto) 2.2, Baso % (Auto) 0.5, Neut # (Auto) 4.3, Lymph # (Auto) 1.1, [place] # (Auto) 0.3, Eos # (Auto) 0.1, Baso # (Auto) 0.0, Sodium 128 L, Potassium 3.3 L, Chloride 93 L, Carbon Dioxide 33 H, Anion Gap 5.3, BUN 21 H D, Creatinine 0.70, Estimated Creat Clear 35, Estimated GFR 81, Est GFR ( Amer) 98, Glucose 87, Calcium 8.5 I & O for Last 24 hours: Intake & Output 10/22/22 10/23/22 10/24/22 10/25/22 11:59 11:59 11:59 11:59 Intake Total 1720 / 1720 2540 / 2540 Output Total 0 / 0 0 / 0 Balance 1720 / 1720 2540 / 2540 Weight 104 lb 8 oz 102 lb 8 oz Microbiology Reports for the Last 24 Hours: Microbiology 10/23/22 18:25 Urine,Clean Catch Urine Culture - Final Citrobacter farmeri Constitutional Constitutional: no acute distress *Routine HEENT Exam Head: Present normocephalic Eye: Present EOMI and PERRL ENT: Present mucous membranes moist *Routine Neck Exam Neck: Present supple; Absent lymphadenopathy *Routine Respiratory Exam Respiratory: Present CTA bilaterally *Routine Cardiovascular Exam Cardiovascular: Present RRR *Routine Abdominal Exam Abdominal: Present soft and normoactive bowel sounds; Absent tenderness Comments: Abdomen much softer than admission *Routine Extremities Exam Extremities: Absent cyanosis, clubbing or edema Comments: Significant joint deformity and osteoarthritis evident as previously noted *Routine Skin Exam Skin: Present warm; Absent rash *Routine Neurological Exam Neurological: Present alert and oriented X3 Results Data Completed and Pending Labs on day of discharge: Labs fro
--- NOTE | 2022-10-25 08:46 | HMH.PHAINT1 ---
Pharmacy Intervention Comments: Discharge medications were discussed with patient. -Cefdiner (told to watch for N/D/V) Ernesto Son, PharmD student
--- NOTE | 2022-10-25 10:10 | HMH.PTEV ---
Physical Therapy Evaluation Rehab PT IP Evaluation Start: 10/24/22 08:08 Freq: ONCE Status: Active Protocol: Document 10/24/22 16:15 BRADLEY (Rec: 10/24/22 16:33 BRADLEY [id number]) Subjective/History History History Patient is a 77 year old female admitted to [facility] 10/23/22 secondary to ESTELITA, UTI and fecal impaction. Work-up indicates acute kidney injury. Patient lived at home alone prior to admittance. Patient voiced intention to return home upon discharge. Patient reports previous independent with ADL's, requiring SPC for ambulation. She reports that she also has a RW at home, but does not use it. Subjective Subjective I'd like to go home once I can get rid of this constapation. Rehab PT IP Eval Objective Appearance Patient Behavior Appropriate,Cooperative, Fearful Patient Orientation Person,Place,Day of Week Difficulty following instructions none Speech Pattern Clear,Appropriate Ambulation Patient Able to Ambulate No Ambulation Observation IP General Gait Pattern Observation Antalgic Gait,Decrease Weight Bear (R) Ambulation Distance (feet) 10 Ambulation Assistive Device Standard Walker Ambulation Ability Contact Guard/Hand Hold Balance Ability to Arise Able, uses arms to help Sitting Balance Steady, safe Standing Balance Steady, wide stance Dynamic Sitting Balance Ability Good Dynamic Standing Balance Ability Good Transfers Bed Transfer Ability Supervision/Stand by Sit to Stand Bed Transfer Ability Contact Guard/Hand Hold Pain Right Knee Pain Intensity 5 ROM All Extremities PT ROM Status WFL MMT All Extremities PT MMT WFL Rehab PT IP prob,goals,plan Problems Date of Evaluation: 10/24/22 PT IP Problems Bed Mobility,Transfers,Gait Rehab Potential Rehab Potential Good Plan PT Intervention Plan Bed Mobility,Transfers,Gait PT Plan Frequency BID Duration LOS Discharge Goals Bed Transfer Ability Independent Sit to Stand Chair Transfer Ability Supervision/Stand by Ambulation Distance (feet) 20 Discharge Plan PT Discharge Plan
--- NOTE | 2022-10-26 14:56 | CARE MANAGER ---
Patient called back and denies any questions or concerns. She is taking her antibiotic and changed her appointment from today to Tuesday. Denies questions or concerns. RADHA Ballard
== END 2022-10-25 10:19 | disposition home or self-care (01) ==
LOC: ER 21:49 → 2ND 23:43
PROVIDERS: Admitting Provider Family Medicine; Emergency Provider Emergency Medicine; PCP Internal Medicine Adolescent Medicine; Visit Provider Internal Medicine Adolescent Medicine
DX: K56.41 Fecal impaction (principal); N17.9 Acute kidney failure, unspecified; R33.8 Other retention of urine; N39.0 Urinary tract infection, site not specified; M21.062 Valgus deformity, not elsewhere classified, left knee; M12.811 Other specific arthropathies, not elsewhere classified, right shoulder; E46 Unspecified protein-calorie malnutrition; R26.9 Unspecified abnormalities of gait and mobility; F32.9 Major depressive disorder, single episode, unspecified; G20 Parkinson's disease; Z79.899 Other long term (current) drug therapy
CPT/HCPCS: G0378; 36415; 74176; 80048; 80053; 81001; 85025; 87086; 87088; 87186; 97163; 99285; J0696

== ENCOUNTER → 2022-12-17 06:29 | Outpatient (CLI) | payer MEDICARE, OTHER, SELFPAY ==
[2022-12-17 07:11] LABS: Anion Gap 11.4 mEq/L (5-15); Blood Urea Nitrogen 18 mg/dl (7-17); Calcium 8.7 mg/dl (8.4-10.2); Carbon Dioxide 30 mmol/L (22.0-30.0); Chloride 96 mmol/L (98-107); Estimated Glomerular Filt Rate 81 ml/min (>60); GFR (African American) 98 ML/MIN (>60); Glucose 83 mg/dl (74-100); Potassium 4.4 mmoL/L (3.5-5.1); Sodium 133 mmol/L (136-145)
== END ==
PROVIDERS: Nurse Practitioner Family; PCP Internal Medicine Adolescent Medicine; Visit Provider Internal Medicine Adolescent Medicine
DX: E03.9 Hypothyroidism, unspecified (principal); E78.5 Hyperlipidemia, unspecified; G20 Parkinson's disease
CPT/HCPCS: 80048

== ENCOUNTER → 2022-12-28 13:20 | Outpatient (CLI) | payer MEDICARE, OTHER, SELFPAY ==
[2022-12-28 14:24] LABS: Basophils % 0.2 % (0.1-2.0); Eosinophils # 0.1 K/mm3 (0.0-0.4); Eosinophils % 0.7 % (0.1-12.0); Hematocrit 32.1 % (37.0-47.0); Hemoglobin 10.3 g/dL (12.2-16.2); Lymphocytes # 0.6 K/mm3 (0.7-4.5); Lymphocytes % 9.1 % (10-50); Mean Corpuscular Hemoglobin 31.5 pg (27.0-31.2); Mean Corpuscular Volume 98.4 fl (81-99); Mean Platelet Volume 8.5 fl (7.4-10.4); Monocytes # 0.4 K/mm3 (0.1-1.0); Monocytes % 5.3 % (1.7-9.3); Neutrophils # 5.6 K/mm3 (1.8-7.8); Neutrophils % 84.6 % (37.0-80.0); Platelet Count 515 K/mm3 (142-424); Red Blood Count 3.26 M/mm3 (4.20-5.40); Red Cell Distribution Width 13.4 % (11.5-17.5); White Blood Count 6.7 K/mm3 (4.8-10.8)
[2022-12-28 15:15] LABS: Chloride 89 mmol/L (98-107); Potassium 3.7 mmoL/L (3.5-5.1); Sodium 128 mmol/L (136-145)
[2022-12-28 15:18] LABS: Anion Gap 11.7 mEq/L (5-15); Blood Urea Nitrogen 23 mg/dl (7-17); Carbon Dioxide 31 mmol/L (22.0-30.0); Estimated Glomerular Filt Rate 81 ml/min (>60); GFR (African American) 98 ML/MIN (>60)
[2022-12-28 15:19] LABS: Calcium 8.5 mg/dl (8.4-10.2); Glucose 116 mg/dl (74-100)
== END ==
PROVIDERS: PCP Internal Medicine Adolescent Medicine; Visit Provider Internal Medicine Adolescent Medicine
DX: I10 Essential (primary) hypertension (principal); E03.9 Hypothyroidism, unspecified
CPT/HCPCS: 80048; 85025

== ENCOUNTER → 2023-01-11 15:55 | Outpatient (CLI) | payer MEDICARE, OTHER, SELFPAY ==
[2023-01-11 18:10] LABS: Blood Urea Nitrogen 20 mg/dl (7-17); Carbon Dioxide 29 mmol/L (22.0-30.0); Chloride 95 mmol/L (98-107); Estimated Glomerular Filt Rate 81 ml/min (>60); GFR (African American) 98 ML/MIN (>60); Glucose 80 mg/dl (74-100); Sodium 133 mmol/L (136-145)
== END ==
PROVIDERS: Nurse Practitioner Family; PCP Internal Medicine Adolescent Medicine; Visit Provider Internal Medicine Adolescent Medicine
DX: I10 Essential (primary) hypertension (principal)
CPT/HCPCS: 80048

== ENCOUNTER 2023-08-16 04:05 | Emergency (ER) | payer MEDICARE, OTHER, SELFPAY ==
[2023-08-16] VITALS (18 sets, daily range): BP systolic 119–162; BP diastolic 65–97; PULSE 84–114; RESP 18–20; TEMP 36.5; O2SAT 94–98; BMI 44.9
--- NOTE | 2023-08-16 05:00 | ED_ITS ---
Discharge Plan Disposition Patient Disposition: Xfer SNF Prescriptions Prescriptions: No Action atorvastatin [Lipitor] 40 mg tablet 40 mg PO DAILY temazepam 30 mg capsule 30 mg PO HSP PRN (Reason: Sleep) omeprazole 20 mg capsule,delayed release(DR/EC) 20 mg PO DAILY celecoxib 100 mg capsule 100 mg PO DAILY propranolol 10 mg tablet 10 mg PO TID trazodone 50 mg tablet 50 mg PO HS carbidopa-levodopa 25-250 mg tablet 1 tab PO TID levothyroxine 50 mcg tablet 50 mcg PO DAILY aripiprazole 5 mg tablet 5 mg PO BID mirtazapine 7.5 mg tablet 7.5 mg PO HS escitalopram oxalate 20 mg tablet 20 mg PO DAILY polyethylene glycol 3350 17 gram Powder In Packet 17 g PO DAILY cefdinir 300 mg capsule 300 mg PO BID Qty: 10 0RF losartan-hydrochlorothiazide 50-12.5 mg tablet 1 tab PO DAILY diclofenac sodium 75 mg tablet,delayed release (DR/EC) 75 mg PO BID Qty: 60 3RF Referrals Follow up/Referrals: Elijah Cota MD [Primary Care Provider] - See instructions Clinical Impressions Clinical Impression: Debility, Prerenal azotemia Discharge ED Provider: Ayaan Lockhart General Adult HPI <Vikash Veloz MD - Last Filed: 08/16/23 06:02> General Chief complaint: Extremity Injury, Lower Stated complaint: Numbness in legs Time Seen by Provider: 08/16/23 04:09 Mode of Arrival: EMS Source of Information: Patient Limitations: Physical Limitations Description of Symptoms (Recalled from ER Triage Doc. by RN): Pt. present to the ED via EMS for bilateral lower leg weakness. Pt. was in a chair that raises up to help stand and she got stuck half way up. Pt's legs were crossed and she was stuck for 2 hours. Pt. called 911. She lives by herself. She walks with a walker and was unable to feel legs and unable to walk. By the time patient got here to this ER she was having no leg pain, Pt. able to move feet and raise and lower both legs. No nuerological symptoms. History of Present Illness HPI narrative: 77-year-old female who has a history of debility and was discharged from inpatient rehab in February who had at home physical therapy until 2 weeks ago presents to the ER with concerns of getting stuck in her electric recliner. Patient states when she tried to get up her legs were crossed and she raised the chair and got stuck. She was afraid to move it further up or down stating she could not get her legs uncrossed and she was stuck like that for nearly 2 hours. Patient states she lives by herself and usually walks with a walker. She states she got to the point where she could not feel her legs while she was in that compromised position and was afraid to either end up falling out of the chair or being stuck there until she was found so she called 911. Patient states that soon as she was helped out of the chair by EMS and got her leg straightened out, full sensation return to the legs, she had no leg pain, she was able to move her feet and legs at baseline strength. Patient states she feels back to normal. She is concerned about going home and getting stuck in her chair again. She states she does not feel any weaker than when her physical therapy ended 2 weeks ago. Family present at the bedside and also states they are concerned about patient's ability to be at home alone, they report being worried about this since she was discharged from rehab back in February. Family also reports that patient has not specifically any weaker than she was previously, but they do not trust her abilities at home. Patient currently has home health that comes a few days a week for wound dressing changes as well as someone who bathes her. She states she has multiple people in and out of the house through the day but no one that lives with her or stays with her at night. Patient reports she did not feel the need to come to the hospital, but did not know what else to do because she thinks that she still needs therapy and strengthening. Family states they think she needs 24/ care. Related Data Home Medications Medication Instructions Recorded Confirmed atorvastatin 40 mg tablet (Lipitor) 40 mg PO DAILY Cholesterol 01/23/18 10/24/22 temazepam 30 mg capsule 30 mg PO HSP PRN Sleep 01/23/18 10/24/22 celecoxib 100 mg capsule 100 mg PO DAILY Pain 12/01/21 10/24/22 omeprazole 20 mg capsule,delayed 20 mg PO DAILY Acid Reflux 12/01/21 10/24/22 release propranolol 10 mg tablet 10 mg PO TID High Blood Pressure 12/01/21 10/24/22 aripiprazole 5 mg tablet 5 mg PO BID Mood 10/24/22 10/24/22 carbidopa 25 mg-levodopa 250 mg 1 tab PO TID Parkinsons 10/24/22 10/24/22 tablet escitalopram oxalate 20 mg tablet 20 mg PO DAILY Mood 10/24/22 10/24/22 levothyroxine 50 mcg tablet 50 mcg PO DAILY thyroid 10/24/22 10/24/22 mirtazapine 7.5 mg tablet 7.5 mg PO HS Mood 10/24/22 10/24/22 polyethylene glycol 3350 17 gram 17 g PO DAILY Constipation 10/24/22 10/24/22 oral powder packet trazodone 50 mg tablet 50 mg PO HS Sleep 10/24/22 10/24/22 losartan 50 mg-hydrochlorothiazide 1 tab PO DAILY 08/16/23 12.5 mg tablet Previous Rx's Medication Instructions Recorded diclofenac sodium 75 mg 75 mg PO BID #60 tabs 08/12/22 tablet,delayed release cefdinir 300 mg capsule 300 mg PO BID #10 caps 10/25/22 Allergies Allergy/AdvReac Type Severity Reaction Status Date / Time aspirin AdvReac Intermediate Verified 10/12/22 14:20 PFSH <Vikash Veloz MD - Last Filed: 08/16/23 06:02> PFSH Disclaimer: The information contained in this section may have been updated after the patient was seen, as this information can be updated by other users. Medical History Anemia Hyperlipidemia Hypertension Hypothyroidism Malignant melanoma of left shoulder Osteoporosis Thyroid disease Thyroid tumor, benign Surgical History History of colonoscopy History of lobectomy of thyroid Previous back surgery Family History Other Coronary artery disease Hypertension Stroke Social History (Updated 10/24/22 @ 00:27 by Venita Zee RN) Smoking Status: Never smoker alcohol intake: never substance use type: denies use current occupational status: other Travel in the last 8 weeks: None household members: spouse housing: house caffeine: Yes <Vikash Veloz MD - Last Filed: 08/16/23 06:02> ROS Obtained: Yes All systems reviewed & no additional complaints except as documented Constitutional Constitutional: Denies chills, Denies fever(s), Denies headache(s) and Denies weakness Eyes Eyes: Denies change in vision ENT Ears, Nose, Mouth, and Throat: Denies dizziness, Denies headache(s), Denies nasal congestion and Denies sore throat Cardiovascular Cardiovascular: Denies chest pain, Denies dyspnea and Denies leg edema Respiratory Respiratory: Denies cough and Denies dyspnea Gastrointestinal Gastrointestingal: Denies constipation, diarrhea, nausea or vomiting Genitourinary Female Genitourinary: Denies dysuria Musculoskeletal Musculoskeletal: Denies arthralgias, Denies myalgias, Denies numbness and Denies tingling Integumentary/Breasts Skin/Breast: Denies change in pigmentation Neurologic Neurologic: Denies dizziness, Denies headache(s), Denies numbness, Denies tingling and Denies weakness Physical Exam <Vikash Veloz MD - Last Filed: 08/16/23 06:02> General General appearance: alert and in no apparent distress Head Head exam: atraumatic and normocephalic Eye Eye exam: Present PERRL and EOMI ENT ENT exam: Present mucous membranes moist Neck Neck exam: Present normal inspection and full ROM Chest Chest inspection: Present symmetric chest wall rise Respiratory Respiratory exam: Absent respiratory distress or stridor Cardiovascular Cardiovascular exam: Present regular rate and normal rhythm Abdominal Exam Abdominal exam: Present soft; Absent distention, tenderness, guarding or rebound Extremities Exam Extremities exam: Present full ROM and other (Healing ulcerated wound on the left elbow, no surrounding induration or other signs of infection. Dressing clean.); Absent normal inspection (Patient has multiple chronic deformities in her hands and feet. These are not new and patient has no findings of traumatic injury.) Neurological Exam Neurological exam: Present alert, oriented X3, CN II-XII intact and normal gait (at baseline for pt, ambulates with walker and was able to do so in the ER); Absent motor sensory deficit (Patient is at her baseline. She has decreased strength and mobility in her left upper extremity which is baseline. She does not have any new motor or sensory deficits. No localizing abnormalities appreciated on exam.) Psychiatric Psychiatric exam: Present normal affect and normal mood Skin Skin exam: Present warm and dry Medical Decision Making <Vikash Veloz MD - Last Filed: 08/16/23 06:02> [place] Inquiry Pt receiving controlled substance: No Vital Signs: 08/16/23 04:05 08/16/23 05:14 08/16/23 05:14 Temperature 97.7 F Temperature Source Oral Pulse Rate 85 Pulse Rate [Left Radial] 85 Respiratory Rate 18 Blood Pressure 119/70 Blood Pressure [Left Arm] 129/80 Blood Pressure Mean 101 Blood Pressure Mean [Left Arm] 96 Blood Pressure Source [Left Arm] Automatic Cuff Blood Pressure Position [Left Arm] Sitting 02 Sat by Pulse Oximetry 98 97 Oxygen Delivery Method Room Air 08/16/23 07:51 08/16/23 07:59 08/16/23 08:30 Temperature Temperature Source Pulse Rate 94 H 90 92 H Pulse Rate [Left Radial] Respiratory Rate Blood Pressure 155/85 H 155/85 H 162/97 H Blood Pressure [Left Arm] Blood Pressure Mean 118 Blood Pressure Mean [Left Arm] Blood Pressure Source [Left Arm] Blood Pressure Position [Left Arm] 02 Sat by Pulse Oximetry 96 96 95 Oxygen Delivery Method 08/16/23 09:00 08/16/23 09:30 08/16/23 11:34 Temperature Temperature Source Pulse Rate 90 90 84 Pulse Rate [Left Radial] Respiratory Rate Blood Pressure 153/86 H 154/82 H 145/93 H Blood Pressure [Left Arm] Blood Pressure Mean Blood Pressure Mean [Left Arm] Blood Pressure Source [Left Arm] Blood Pressure Position [Left Arm] 02 Sat by Pulse Oximetry 95 96 96 Oxygen Delivery Method 08/16/23 12:02 08/16/23 12:30 08/16/23 12:47 Temperature Temperature Source Pulse Rate 93 H 90 90 Pulse Rate [Left Radial] Respiratory Rate Blood Pressure 158/97 H 162/92 H 147/93 H Blood Pressure [Left Arm] Blood Pressure Mean Blood Pressure Mean [Left Arm] Blood Pressure Source [Left Arm] Blood Pressure Position [Left Arm] 02 Sat by Pulse Oximetry 95 95 95 Oxygen Delivery Method Lab Data Lab Results 08/16/23 05:05: WBC 6.7, RBC 3.78 L, Hgb 11.5 L, Hct 35.6 L, MCV 94.0, MCH 30.4, MCHC 32.3, RDW 16.1, Plt Count 301, MPV 8.2, Neut % (Auto) 81.5 H, Lymph % (Auto) 10.7, [place] % (Auto) 5.3, Eos % (Auto) 1.7, Baso % (Auto) 0.7, Neut # (Auto) 5.5, Lymph # (Auto) 0.7, [place] # (Auto) 0.4, Eos # (Auto) 0.1, Baso # (Auto) 0.1, Sodium 140, Potassium 3.7, Chloride 102, Carbon Dioxide 29, Anion Gap 12.7, BUN 45 H, Creatinine 0.90, Estimated Creat Clear 36, Estimated GFR 61, Est GFR ( Amer) 74, Glucose 100, Lactate 1.1, Calcium 9.1, Total Bilirubin 0.4, AST 48 H, ALT 46, Alkaline Phosphatase 129 H, Total Creatine Kinase 58, Total Protein 6.2 L, Albumin 3.6, Globulin 2.6, Albumin/Globulin Ratio 1.4 08/16/23 07:56: Sodium 139, Potassium 3.6, Chloride 103, Carbon Dioxide 29, Anion Gap 10.6, BUN 39 H, Creatinine 0.80, Estimated Creat Clear 36, Estimated GFR 70, Est GFR ( Amer) 84, Glucose 90, Calcium 8.9 08/16/23 05:05 08/16/23 07:56 Orders (Tests/Meds): ED MEDICATIONS Discontinued Medications Generic Name Dose Route Start Last Admin Trade Name Freq PRN Reason Stop Dose Admin Hydrochlorothiazide 12.5 mg 08/16/23 14:30 08/16/23 14:29 Hydrochlorothiazide 12.5mg Capsule PO 08/16/23 14:31 12.5 mg ONCE ONE Administration Lactated Ringer's 500 mls @ 999 mls/hr 08/16/23 04:52 08/16/23 05:10 Lactated Ringer's 500ml IV 08/16/23 05:22 999 mls/hr .Q31M ONE Administration Lactated Ringer's 1,000 mls @ 999 mls/hr 08/16/23 05:56 08/16/23 06:08 Lactated Ringer's 1000 Ml Bag IV 08/16/23 06:56 999 mls/hr .Q1H1M ONE Administration Lactated Ringer's 1,000 mls @ 999 mls/hr 08/16/23 08:07 08/16/23 08:17 Lactated Ringer's 1000 Ml Bag IV 08/16/23 09:07 999 mls/hr .Q1H1M ONE Administration Irbesartan 75 mg 08/16/23 14:30 08/16/23 14:29 Irbesartan 75mg Tablet PO 08/16/23 14:31 75 mg ONCE ONE Administration ORDERS Category Date Time Status Consult to Case Management [CONS] Routine Cons 08/16/23 07:53 Active BMP [Basic Metabolic Panel] Timed Lab 08/16/23 07:56 Completed CBC w/Auto Diff [Complete Blood Count Auto Diff] Stat Lab 08/16/23 05:05 Completed CK [Creatine Kinase] Stat Lab 08/16/23 05:05 Completed CMP [Comprehensive Metabolic Panel] Stat Lab 08/16/23 05:05 Completed Lactic Acid Stat Lab 08/16/23 05:05 Completed Medical Decision Narrative: In summary, this 77-year-old female presents to the emergency department today after getting stuck in her electric lift assist recliner, no complaints at this time. On initial evaluation patient is hemodynamically stable, afebrile, patient has no neurologic deficits, no findings of traumatic injury, full sensation, strength is at baseline in all extremities, she has no localizing deficits, GCS 15. Chronic left elbow wound appears well-healing. She states as soon as she was out of the compromising position in which she was found in her chair, her symptoms dramatically improved back to baseline. Differential diagnosis includes but is not limited to debility, weakness, patient has no neurologic deficits that would be concerning for stroke, she has no pain or infectious symptoms, since patient has significant debility and was stuck for a few hours, I did order CBC, CMP, lactic, and CK to rule out possibility of rhabdo or electrolyte abnormality. No imaging is necessary at this time. Labs personally reviewed demonstrate no leukocytosis, mild anemia, improved from prior, patient does have findings of prerenal azotemia with BUN 45, normal creatinine. She is already receiving IV fluids. Will recheck BMP after fluids are completed. Her prerenal azotemia supports concerns that she is likely not able to care for herself well at home. Lactate is normal at 1.1, CK normal at 58. No findings of rhabdomyolysis. Patient was placed in ED observation at 0558 for fluid repletion and repeat BMP. This will hopefully preclude unnecessary admission. Patient's disposition is still not clear since she is functionally at her baseline but patient and family are concerned that her baseline is not appropriate to be home alone. I believe patient requires case management evaluation to discuss possibility of physical therapy evaluation, at home physical therapy, or placement. Family also request this. Patient will be monitored in the ER until case management is available and we will recheck labs in that time. Patient continued to be on the monitor and was frequently reassessed while in the ER. Patient handed off to Dr. Lockhart at physician shift change for further management disposition pending repeat BMP and case management recommendations. <Ayaan Lockhart MD - Last Filed: 08/16/23 14:35> Vital Signs: 08/16/23 04:05 08/16/23 05:14 08/16/23 05:14 Temperature 97.7 F Temperature Source Oral Pulse Rate 85 Pulse Rate [Left Radial] 85 Respiratory Rate 18 Blood Pressure 119/70 Blood Pressure [Left Arm] 129/80 Blood Pressure Mean 101 Blood Pressure Mean [Left Arm] 96 Blood Pressure Source [Left Arm] Automatic Cuff Blood Pressure Position [Left Arm] Sitting 02 Sat by Pulse Oximetry 98 97 Oxygen Delivery Method Room Air 08/16/23 07:51 08/16/23 07:59 08/16/23 08:30 Temperature Temperature Source Pulse Rate 94 H 90 92 H Pulse Rate [Left Radial] Respiratory Rate Blood Pressure 155/85 H 155/85 H 162/97 H Blood Pressure [Left Arm] Blood Pressure Mean 118 Blood Pressure Mean [Left Arm] Blood Pressure Source [Left Arm] Blood Pressure Position [Left Arm] 02 Sat by Pulse Oximetry 96 96 95 Oxygen Delivery Method 08/16/23 09:00 08/16/23 09:30 08/16/23 11:34 Temperature Temperature Source Pulse Rate 90 90 84 Pulse Rate [Left Radial] Respiratory Rate Blood Pressure 153/86 H 154/82 H 145/93 H Blood Pressure [Left Arm] Blood Pressure Mean Blood Pressure Mean [Left Arm] Blood Pressure Source [Left Arm] Blood Pressure Position [Left Arm] 02 Sat by Pulse Oximetry 95 96 96 Oxygen Delivery Method 08/16/23 12:02 08/16/23 12:30 08/16/23 12:47 Temperature Temperature Source Pulse Rate 93 H 90 90 Pulse Rate [Left Radial] Respiratory Rate Blood Pressure 158/97 H 162/92 H 147/93 H Blood Pressure [Left Arm] Blood Pressure Mean Blood Pressure Mean [Left Arm] Blood Pressure Source [Left Arm] Blood Pressure Position [Left Arm] 02 Sat by Pulse Oximetry 95 95 95 Oxygen Delivery Method Lab Data Lab Results 08/16/23 05:05: WBC 6.7, RBC 3.78 L, Hgb 11.5 L, Hct 35.6 L, MCV 94.0, MCH 30.4, MCHC 32.3, RDW 16.1, Plt Count 301, MPV 8.2, Neut % (Auto) 81.5 H, Lymph % (Auto) 10.7, [place] % (Auto) 5.3, Eos % (Auto) 1.7, Baso % (Auto) 0.7, Neut # (Auto) 5.5, Lymph # (Auto) 0.7, [place] # (Auto) 0.4, Eos # (Auto) 0.1, Baso # (Auto) 0.1, Sodium 140, Potassium 3.7, Chloride 102, Carbon Dioxide 29, Anion Gap 12.7, BUN 45 H, Creatinine 0.90, Estimated Creat Clear 36, Estimated GFR 61, Est GFR ( Amer) 74, Glucose 100, Lactate 1.1, Calcium 9.1, Total Bilirubin 0.4, AST 48 H, ALT 46, Alkaline Phosphatase 129 H, Total Creatine Kinase 58, Total Protein 6.2 L, Albumin 3.6, Globulin 2.6, Albumin/Globulin Ratio 1.4 08/16/23 07:56: Sodium 139, Potassium 3.6, Chloride 103, Carbon Dioxide 29, Anion Gap 10.6, BUN 39 H, Creatinine 0.80, Estimated Creat Clear 36, Estimated GFR 70, Est GFR ( Amer) 84, Glucose 90, Calcium 8.9 Orders (Tests/Meds): ED MEDICATIONS Discontinued Medications Generic Name Dose Route Start Last Admin Trade Name Freq PRN Reason Stop Dose Admin Hydrochlorothiazide 12.5 mg 08/16/23 14:30 08/16/23 14:29 Hydrochlorothiazide 12.5mg Capsule PO 08/16/23 14:31 12.5 mg ONCE ONE Administration Lactated Ringer's 500 mls @ 999 mls/hr 08/16/23 04:52 08/16/23 05:10 Lactated Ringer's 500ml IV 08/16/23 05:22 999 mls/hr .Q31M ONE Administration Lactated Ringer's 1,000 mls @ 999 mls/hr 08/16/23 05:56 08/16/23 06:08 Lactated Ringer's 1000 Ml Bag IV 08/16/23 06:56 999 mls/hr .Q1H1M ONE Administration Lactated Ringer's 1,000 mls @ 999 mls/hr 08/16/23 08:07 08/16/23 08:17 Lactated Ringer's 1000 Ml Bag IV 08/16/23 09:07 999 mls/hr .Q1H1M ONE Administration Irbesartan 75 mg 08/16/23 14:30 08/16/23 14:29 Irbesartan 75mg Tablet PO 08/16/23 14:31 75 mg ONCE ONE Administration ORDERS Category Date Time Status Consult to Case Management [CONS] Routine Cons 08/16/23 07:53 Active BMP [Basic Metabolic Panel] Timed Lab 08/16/23 07:56 Completed CBC w/Auto Diff [Complete Blood Count Auto Diff] Stat Lab 08/16/23 05:05 Completed CK [Creatine Kinase] Stat Lab 08/16/23 05:05 Completed CMP [Comprehensive Metabolic Panel] Stat Lab 08/16/23 05:05 Completed Lactic Acid Stat Lab 08/16/23 05:05 Completed Medical Decision Narrative: In summary, this 77-year-old female presents to the emergency department today after getting stuck in her electric lift assist recliner, no complaints at this time. On initial evaluation patient is hemodynamically stable, afebrile, patient has no neurologic deficits, no findings of traumatic injury, full sensation, strength is at baseline in all extremities, she has no localizing deficits, GCS 15. Chronic left elbow wound appears well-healing. She states as soon as she was out of the compromising position in which she was found in her chair, her symptoms dramatically improved back to baseline. Differential diagnosis includes but is not limited to debility, weakness, patient has no neurologic deficits that would be concerning for stroke, she has no pain or infectious symptoms, since patient has significant debility and was stuck for a few hours, I did order CBC, CMP, lactic, and CK to rule out possibility of rhabdo or electrolyte abnormality. No imaging is necessary at this time. Labs personally reviewed demonstrate no leukocytosis, mild anemia, improved from prior, patient does have findings of prerenal azotemia with BUN 45, normal creatinine. She is already receiving IV fluids. Will recheck BMP after fluids are completed. Her prerenal azotemia supports concerns that she is likely not able to care for herself well at home. Lactate is normal at 1.1, CK normal at 58. No findings of rhabdomyolysis. Patient was placed in ED observation at 0558 for fluid repletion and repeat BMP. This will hopefully preclude unnecessary admission. Patient's disposition is still not clear since she is functionally at her baseline but patient and family are concerned that her baseline is not appropriate to be home alone. I believe patient requires case management evaluation to discuss possibility of physical therapy evaluation, at home physical therapy, or placement. Family also request this. Patient will be monitored in the ER until case management is available and we will recheck labs in that time. Patient continued to be on the monitor and was frequently reassessed while in the ER. Patient handed off to Dr. Lockhart at physician shift change for further management disposition pending repeat BMP and case management recommendations. Chantelle: I assumed primary responsibility for this patient after signout from previous physician. On my eval ration, patient stating she feels much better after the fluids. No complaints at this time. Family has concerns that patient is unable to take care of her self given chronic debility and weakness, patient denies any overt unilateral weakness. States that she just felt generally weak today and this has happened in the past, increasing frequency. Physical therapy consulted and did evaluation here. Recommended full assist. Care management also contacted, see their note for recommendation. Ultimately, patient accepted and admitted to assisted living facility. Because patient at baseline without signs or symptoms of clinical decompensation, deemed appropriate for discharge. Results were relayed to patient who voiced understanding and were agreeable to outpatient management and follow up. I discussed my clinical impression with patient and answered all questions. At this time, the evidence for any other entities in the differential is insufficient to warrant any further testing or ED observation. This was explained as well. Advisory was given that persistent or worsening symptoms require further evaluation. I confirmed the understanding of this discussion. Critical Care <Vikash Veloz MD - Last Filed: 08/16/23 06:02> Critical Care Time Critical Care Time: No
[2023-08-16] MEDS: RINGERS SOLUTION,LACTATED 500 ML 999 ML IV (05:10)
[2023-08-16 05:12] LABS: Basophils # 0.1 K/mm3 (0-0.2); Basophils % 0.7 % (0.1-2.0); Eosinophils # 0.1 K/mm3 (0.0-0.4); Eosinophils % 1.7 % (0.1-12.0); Hematocrit 35.6 % (37.0-47.0); Hemoglobin 11.5 g/dL (12.2-16.2); Lymphocytes # 0.7 K/mm3 (0.7-4.5); Lymphocytes % 10.7 % (10-50); Mean Corpuscular HGB Conc 32.3 g/dL (31.8-35.4); Mean Corpuscular Hemoglobin 30.4 pg (27.0-31.2); Mean Platelet Volume 8.2 fl (7.4-10.4); Monocytes # 0.4 K/mm3 (0.1-1.0); Monocytes % 5.3 % (1.7-9.3); Neutrophils # 5.5 K/mm3 (1.8-7.8); Neutrophils % 81.5 % (37.0-80.0); Platelet Count 301 K/mm3 (142-424); Red Blood Count 3.78 M/mm3 (4.20-5.40); Red Cell Distribution Width 16.1 % (11.5-17.5); White Blood Count 6.7 K/mm3 (4.8-10.8)
[2023-08-16 05:24] LABS: Alanine Aminotransferase 46 U/L (12-78); Albumin Level 3.6 g/dl (3.5-5.0); Albumin/Globulin Ratio 1.4 (1.1-1.8); Alkaline Phosphatase 129 U/L (38-126); Anion Gap 12.7 mEq/L (5-15); Aspartate Amino Transferase 48 U/L (14-36); Bilirubin,Total 0.4 mg/dl (0.2-1.3); Blood Urea Nitrogen 45 mg/dl (7-17); Calcium 9.1 mg/dl (8.4-10.2); Carbon Dioxide 29 mmol/L (22.0-30.0); Chloride 102 mmol/L (98-107); Creatine Kinase 58 U/L (30-135); Creatinine Clearance Estimated 36 mL/min (50-200); Estimated Glomerular Filt Rate 61 ml/min (>60); GFR (African American) 74 ML/MIN (>60); Globulin 2.6 g/dL (1.3-3.2); Glucose 100 mg/dl (74-100); Lactic Acid 1.1 mmol/L (0.7-2.1); Potassium 3.7 mmoL/L (3.5-5.1); Sodium 140 mmol/L (136-145); Total Protein,Serum 6.2 g/dl (6.3-8.2)
[2023-08-16] MEDS: LACTATED RINGERS 1000ML 1,000 ML 999 ML IV ×2 (06:08→08:17)
--- NOTE | 2023-08-16 07:51 | PC.NURSE ---
family at the bedside. pt placed on pure wick. repeat bmp sent to lab. updated pt and family on POC
--- NOTE | 2023-08-16 08:12 | PC.NURSE ---
care management at the bedside
[2023-08-16 08:33] LABS: Anion Gap 10.6 mEq/L (5-15); Blood Urea Nitrogen 39 mg/dl (7-17); Calcium 8.9 mg/dl (8.4-10.2); Carbon Dioxide 29 mmol/L (22.0-30.0); Chloride 103 mmol/L (98-107); Creatinine Clearance Estimated 36 mL/min (50-200); Estimated Glomerular Filt Rate 70 ml/min (>60); GFR (African American) 84 ML/MIN (>60); Glucose 90 mg/dl (74-100); Potassium 3.6 mmoL/L (3.5-5.1); Sodium 139 mmol/L (136-145)
--- NOTE | 2023-08-16 08:37 | SW/DCPLANNER ---
Addendum entered by [facility] 08/16/23 13:27: Mirna w/ [facility] is able to accept this patient. Patient/family are agreeable. Patient will discharge from ED today. Addendum entered by [facility] 08/16/23 13:18: Patient is also agreeable for information to be faxed to [facility]. fax number: [phone] Addendum entered by [facility] 08/16/23 13:07: [facility] is not able to accept patient on PC Unit due to dressing changes and does not have a longwall foreman bed available. Patient is agreeable for information to be faxed to [facility]. Addendum entered by [facility] 08/16/23 11:27: Helena will need to speak w/ [facility] and [facility] that patient is currently established w/ for wound care prior to making decision. Original Note: I spoke w/ this patient and her family regarding plans once medically stable for discharge. Patient was at [facility] level of care from Nov-Feb 2023 and prefers to go back their facility. I explained to patient and family that if patient prefers to discharge to placement she would require private pay rate due to not having a hospital admission. Patient expressed an interest in proceeding w/ placement at [facility] under private pay. Patient information has been faxed to [facility]/ [facility]. [facility] has requested PT/OT to evaluate patient to determine level of care needed. ER MD has ordered PT/OT. I will continue to follow up w/ patient, family and [facility]. Patient is medically stable for discharge from ED. [facility]ena jon/ [facility] will be onsite to evaluate patient this AM.
--- NOTE | 2023-08-16 09:38 | PC.NURSE ---
PT @ the bedside
--- NOTE | 2023-08-16 09:39 | PC.NURSE ---
PT at bedside with patient at this time.
--- NOTE | 2023-08-16 10:06 | HMH.PTEV ---
Physical Therapy Evaluation Rehab PT IP Evaluation Start: 08/16/23 08:26 Freq: ONCE Status: Active Protocol: Document 08/16/23 09:56 PHORNE (Rec: 08/16/23 10:05 PHORNE Laptop) Subjective/History History History 77 yowf who presented to ED with c/o B LE numbness after being stuck in her lift chair for several hours at home. She reports she lives alone, uses a rolator walker at baseline for all mobility, and requires assistance with all ADLs ( cooking, cleaning, bathing, dressing all performed by aides) due poor ROM and strength in B UE. I have somebody come in a few days a week. She has PMH of : Anemia Hyperlipidemia Hypertension Hypothyroidism Malignant melanoma of left shoulder Osteoporosis Thyroid disease Thyroid tumor, benign Multiple L elbow surgeries Current L elbow wound Subjective Subjective Pt reports she essentially stays in her lift chair at all times, even sleeping there. She reports , I don't think I can stay by myself the way I am right now. New diagnosis of cancer in past 12 No months? Rehab PT IP Eval Objective Appearance Patient Behavior Appropriate Patient Orientation Person,Place,Time Difficulty following instructions none Speech Pattern Clear Ambulation Patient Able to Ambulate Yes Ambulation Observation IP General Gait Pattern Observation Shuffling Step Ambulation Distance (feet) 20 Ambulation Assistive Device Rolling Walker Ambulation Ability Contact Guard/Hand Hold Balance Ability to Arise Able, uses arms to help Sitting Balance Leans or slides in chair Standing Balance Unsteady Dynamic Sitting Balance Ability Fair Dynamic Standing Balance Ability Poor Transfers Bed Transfer Ability Minimal x 1 (25% assist) Chair Transfer Ability Minimal x 1 (25% assist) Sit to Stand Bed Transfer Ability Minimal x 1 (25% assist) Sit to Stand Chair Transfer Ability Minimal x 1 (25% assist) ROM All Extremities PT ROM Status ABN Abnormal ROM Comment B SHLD FLEX 0-75 deg, B albow ext lacking 15 deg at least, B LE grossly dec Rehab PT IP prob,goals,plan Problems Date of Evaluation: 08/16/23 Discharge Plan PT Discharge Plan Pt is currently close to her baseline mobility, which is very poor to begin with. She is most appropriate for Assistive living vs intermediate manager care placement due to inability to perform any ADLS independently at this time. Safety would be an issue if she were to return home without 24 hr assistance available. PHYSICIAN CERTIFICATION: I certify the specified therapy services for Britta Nathalie Greek are required, authorized, and reviewed every 30 days.
--- NOTE | 2023-08-16 13:26 | PC.NURSE ---
per case management, pt has been accepted at [facility]
--- NOTE | 2023-08-16 13:50 | PC.NURSE ---
[facility] spoke with pt. states they [facility] take her @ 3pm
[2023-08-16] MEDS: IRBESARTAN 75MG TABLET 75 MG PO (14:29)
[2023-08-16] MEDS: hydroCHLOROthiazide 12.5MG CAPSULE 12.5 MG PO (14:29)
== END 2023-08-16 17:20 ==
PROVIDERS: Emergency Medicine; Emergency Provider Emergency Medicine; PCP Internal Medicine Adolescent Medicine
DX: R20.2 Paresthesia of skin (principal); R79.89 Other specified abnormal findings of blood chemistry; R53.81 Other malaise; E03.9 Hypothyroidism, unspecified; I10 Essential (primary) hypertension; E78.5 Hyperlipidemia, unspecified; M62.81 Muscle weakness (generalized); N17.8 Other acute kidney failure
CPT/HCPCS: 80048; 80053; 82550; 83605; 85025; 96360; 96361; 99285

== ENCOUNTER 2024-02-01 18:41 | Outpatient (CLI) | payer MEDICARE, OTHER, SELFPAY | END 2024-02-01 23:59 | disposition home or self-care (01) | LOC: LAB.DROPOF 18:42 | PROVIDERS: PCP Internal Medicine Adolescent Medicine; Visit Provider Internal Medicine Adolescent Medicine | DX: Z48.89 Encounter for other specified surgical aftercare (principal) | CPT/HCPCS: 87070; 87077; 87186; 87205 ==

== ENCOUNTER 2024-04-17 07:36 | Outpatient (CLI) | payer MEDICARE, OTHER, SELFPAY ==
--- NOTE | 2024-04-17 07:44 | CT_ITS ---
FINAL REPORT TECHNIQUE: Axial CT images were obtained, with coronal and sagittal reconstructions performed. This study was performed with techniques to keep radiation doses as low as reasonably achievable (ALARA). Individualized dose reduction techniques using automated exposure control or adjustment of mA and/or kV according to the patient's size were employed. CLINICAL HISTORY: CHRONIC INFECTION best images possible due to patient unable to extend arm down by side COMPARISON: None FINDINGS: CT LEFT ELBOW: Compared with a plain film of the elbow dated 05/11/2021, there has been interval explantation of the sideplate along the medial aspect of the distal humerus and the proximal ulna. 4 orthopedic screws remain in the distal humerus. There is bony erosion of the proximal ulna and radius with subluxation of the elbow joint. Presumed antibiotics seed implants are noted in the soft tissues on the lateral aspect of the elbow joint. There is ill-defined soft tissue streaking present, that likely represents an inflammatory change. IMPRESSION: Postoperative changes are present, with removal of side plates and screws from the medial aspect of the distal humerus and of the proximal ulna. There are bony erosions in the proximal ulna and radius with subluxation of the elbow joint. Presumed antibiotic seed implants are noted in the lateral soft tissues of the elbow. There are ill-defined streaky opacities in the soft tissues, likely inflammatory change. Reviewed, Interpreted and Dictated by Anand Kaye MD Transcribed by Radha Castillo Authenticated and [facility]
[2024-04-17 08:19] LABS: Blood Urea Nitrogen 29 mg/dl (7-17); Estimated Glomerular Filt Rate 61 ml/min (>60); GFR (African American) 73 ML/MIN (>60)
[2024-04-17] MEDS: SODIUM CHLORIDE 0.9% 10ML SYR (RAD ONLY) 10 ML IV (09:02)
[2024-04-17] MEDS: IOPAMIDOL-370 (76%);100ML BOTTLE 75 ML IV (09:02)
== END 2024-04-17 23:59 | disposition home or self-care (01) ==
LOC: RAD 07:37
PROVIDERS: PCP Internal Medicine Adolescent Medicine; Visit Provider Nurse Practitioner Family
DX: M25.522 Pain in left elbow (principal); B99.9 Unspecified infectious disease; T14.8XXA Other injury of unspecified body region, initial encounter
CPT/HCPCS: 36415; 73201; 82565; 84520; Q9967

== ENCOUNTER 2024-04-25 16:57 | Outpatient (CLI) | payer MEDICARE, OTHER, SELFPAY ==
[2024-04-25 17:20] LABS: Microscopic, Urine URINE MICROSCOPIC (MICROSCOPIC)
[2024-04-25 18:03] LABS: Appearance,Urine CLEAR (Clear); Bilirubin,Urine Negative (Negative); Blood, Urine Negative (Negative); Color,Urine YELLOW (Yellow); Glucose,Urine (UA) Negative (Negative); Ketones,Urine Negative (Negative); Leukocyte Esterase,Urine TRACE (Negative); Nitrate,Urine POSITIVE (Negative); Protein,Urine Negative (Negative); Urobilinogen,Urine 0.2 EU/dl (0.2)
[2024-04-25 18:04] LABS: PH,Urine >= 9.0 (5.0-8.5)
[2024-04-25 18:33] LABS: Bacteria,Urine 4+ /lpf; Squamous Epithelial Cell,Urine Occasional #/hpf (0-5)
== END 2024-04-25 23:59 | disposition home or self-care (01) ==
LOC: LAB.DROPOF 17:00
PROVIDERS: PCP Nurse Practitioner Family; Visit Provider Nurse Practitioner Family
DX: G20.C Parkinsonism, unspecified (principal); R30.0 Dysuria; N39.0 Urinary tract infection, site not specified
CPT/HCPCS: 81001; 87086; 87088; 87186

== ENCOUNTER 2025-01-18 17:27 | Outpatient (CLI) | payer MEDICARE, OTHER, SELFPAY ==
--- OUTSIDE RECORDS SUMMARY | 2025-01-18 17:30 | XMS_ITS | Encounter Summary ---
Author Organization Healthcare Address [address] [place] [address] Care Team Providers Care Process Architect Name Role Phone Elijah Cota MD Primary Care Provider [phone] Reason for Visit * Auth/Cert Specialty Diagnoses / Procedures Referred By Contac t Referred To Contact Diagnoses Hardware complicating wound infection, sequela Jaden Cantrell MD [address] [facility] [address] [place] [address] Phone: tel: fax: [facility] [address] [place] [address] Phone: tel: Referral ID Status Reason Start Date Expiration Date Visits Re quested Visits Authorized [id number] 1 1 Encounter Details Date Type Department Care Team (Late st Contact Info) Description 06/04/2021 Lab Requisition [facility] [address] [place] [address] Steve Hurtado MD [address] [facility] [address] [place] [address] Osteomyelitis, unspecified (CMS/HCC) Social History Tobacco Use Types Packs/Day Years Used Date Smoking Tobacco: Never Smokeless Tobacco: Never Alcohol Use Standard Drinks/Week Comments Not Currently 0 (1 standard drink = 0.6 oz pur e alcohol) socially Comments No Sex and Gender Information Value Date Recorded Sex Assigned at Female 04/02/2021 12:54 PM EST Legal Sex Female 7:37 PM EDT Gender Identity Female 04/02/2021 12:54 PM EST Sexual Orientation Not on file COVID-19 Exposure Response Date Recorded In the last month, have you been in contact with someone who was confirmed or suspected to have Coronavirus / COVID-19? No / Unsure 05/27/2021 6:49 AM EST documented as of this encounter Plan of Treatment Not on file documented as of this encounter Procedures Procedure Name Priority Date/Time Associated Diagnosis Comments C-REACTIVE PROTEIN, PLASMA Routine 06/04/2021 3:00 PM EST Osteomyelitis, unspecified (CMS/HCC) documented in this encounter Results * C-reactive protein (06/04/2021 3:00 PM EST) CRP, Plasma 3.6 <=8.0 mg/L 06/04/2021 4:41 PM EST [facility] Blood Venous blood specimen / Unknown 06/04/2021 3:00 PM EST 06/04/2021 4:04 PM EST Narrative [facility] - 06/04/2021 4:41 PM EST This CRP test is appropriate for assessment of infection, systemic inflammation and/or tissue injury. To assess cardiovascular disease risk order high sensitivity CRP (CRPH). Steve Hurtado MD LAB BLOOD ORDERABLES Final Re sult [facility] [address] [place] [address] documented in this encounter Visit Diagnoses Diagnosis Osteomyelitis, unspecified (CMS/HCC) documented in this encounter Additional Health Concerns Assessment Noted Time A fall risk assessment has been complete d for the patient 05/26/2021 8:30 AM EST documented as of this encounter Care Teams Process Architect Relationship Specialty Start Date End Date Elijah Cota MD [address] [place] [id number] PCP - General 03/26/21 documented as of this encounter
--- OUTSIDE RECORDS SUMMARY | 2025-01-18 17:31 | XMS_ITS | Clinical Summary ---
Author Organization [facility] Address [address] [place] [address] Care Team Providers Care Brass Finisher Name Role Phone Elijah Cota MD Primary Care Provider + [phone] Allergies Active Allergy Reactions Criticality Noted Date Comments Aspirin Other - please docum ent in the comment field Low 12/07/2022 GI upset Medications atorvastatin (Lipitor) 40 MG tablet Take 1 tablet (40 mg) by mouth every night. 1 Active levothyroxine (Synthroid, Levoxyl) 50 MCG tablet Take 1 tablet (50 mcg) by mouth 1 (one) time each day before breakfast. 1 Active propranolol (Inderal) 10 MG tablet Take 1 tablet (10 mg) by mouth 3 (three) times a day. 1 Active temazepam (Restoril) 30 MG capsule Take 1 capsule (30 mg) by mouth every night. 1 Active ARIPiprazole (Abilify) 5 MG tablet Take 1 tablet (5 mg) by mouth 2 (two) times a day. 3 Active carbidopa-levod opa (Sinemet) 25-250 MG tablet Take 1 tablet by mouth 3 (three) times a day. 3 Active mirtazapine (Remeron) 7.5 MG tablet Take 1 tablet (7.5 mg) by mouth every night. 3 Active polyethylene glycol (Miralax) 17 g packet Take 17 g by mouth 1 (one) time each day in the morning. Active omeprazole (PriLOSEC) [address] capsule Take 1 capsule (20 mg) by mouth every night. Do not crush or chew. Active acetaminophen (Tylenol Extra Strength) 500 MG tablet Take 2 tablets (1,000 mg) by mouth every 8 (eight) hours. 100 tablet 3 Active losartan-hydroC HLOROthiazide (Hyzaar) 50-12.5 MG tablet Take 1 tablet by mouth 1 (one) time each day. 4 Active diclofenac (Voltaren) 75 MG EC tablet Take 1 tablet (75 mg) by mouth 2 (two) times a day. 4 Active Pollen Extracts (PROSTAT PO) Take 30 mL by mouth 1 (one) time each day. Active ascorbic acid (Vitamin C) 500 MG tablet Take 1 tablet (500 mg) by mouth 1 (one) time each day. Active cholecalciferol (Vitamin D-3) 25 MCG (1000 UT) tablet Take 1 tablet (1,000 Units) by mouth 1 (one) time each day. Active zinc sulfate (Zincate) 220 (50 Zn) MG capsule Take 1 capsule (220 mg) by mouth 1 (one) time each day. Active doxycycline (Vibramycin) 100 MG capsule Take 1 capsule (100 mg) by mouth 2 (two) times a day. Take with at least 8 ounces (large glass) of water, do not lie down for 30 minutes after Active HYDROcodone-chandni taminophen (Sidney) 5-325 MG tablet Take 1 tablet (5 mg of hydrocodone) by mouth every 12 (twelve) hours if needed for moderate pain. Active Wound Dressings ([facility] WOUND &BURN DRESSING EX) Apply topically 1 (one) time each day. To left elbow Active gabapentin (Neurontin) 100 MG capsule Take 1 capsule (100 mg) by mouth every night. 4 Active Active Problems Problem Noted Date Diagnosed Date Moderate protein-calorie malnutrition 12/22/2022 Valgus deformity, not elsewhere classified, left knee 10/26/2022 Charcot's joint, left knee 10/26/2022 Pain from implanted hardware 05/26/2021 Overview (06/01/2021): Added automatically from request for surgery [id number] HTN (hypertension) 05/12/2021 Hypothyroidism 05/12/2021 Gastroesophageal reflux disease 05/12/2021 Elbow fracture, left, closed, initial encounter 04/02/2021 Resolved Problems Problem Noted Date Diagnosed Date Resolved Date DJD (degenerative joint disease) 10/26/2022 12/23/2024 Hardware complicating wound infection 05/26/2021 10/14/2023 Exposed orthopaedic hardware 05/26/2021 06/03/2021 Overview (06/01/2021): Added automatically from request for surgery [id number] Fall 05/12/2021 05/18/2021 Arthritis 05/12/2021 12/16/2024 Exposed orthopaedic hardware 05/11/2021 06/01/2021 Overview (05/12/2021): Added automatically from request for surgery [id number] Elbow pain, left 03/31/2021 10/14/2023 Overview (03/31/2021): Added automatically from request for surgery [id number] Immunizations Immunization Administration Dates Next Due Influenza, high-dose, quadrivalent 12/18/2020,,02/16/2019 Family History Medical History Relation Name Comments Diabetes Brother Stroke Father Heart disease Mother Anesthesia problems Neg Hx Malig Hyperthermia Neg Hx Relation Name Status Comments Brother Father Mother Social History Tobacco Use Types Packs/Day Years Used Date Smoking Tobacco: Never Passive Smoke Exposure: Never Smokeless Tobacco: Never Tobacco Cessation:Counseling Given: Not Answered Alcohol Use Standard Drinks/Week Comments Not Currently 0 (1 standard drink = 0.6 oz pur e alcohol) socially Humiliation, Afraid, Rape, and Kick questionnair e Answer Date Recorded Within the last year, have y ou been afraid of your partner or ex-partner? No 10/13/2023 Within the last year, have y ou been humiliated or emotionally abused in other ways by your partner or ex-partner? No Within the last year, have y ou been kicked, hit, slapped, or otherwise physically hurt by your partner or ex-partner? No 10/13/2023 Within the last year, have y ou been raped or forced to have any kind of sexual activity by your partner or ex-partner? No 10/13/2023 Social Connection and Isolation Panel Answer Date Recorded Frequency of Communication with Friends and Fami ly Not on file 10/13/2023 Frequency of Social Gatherings with Friends and Family Not on file 10/13/2023 Attends Mormonism Services Not on file 10/12 Active Member of Clubs or Organizations Not on f ile 10/13/2023 Attends Club or Organization Meetings Not on galdino e 10/13/2023 Are you , , di vorced, , never , or living with a partner? 10/13/2023 AUDIT-C Answer Date Recorded Q1: How often do you have a drink containing alcohol? Never 10/13/2023 Q2: How many drinks containi ng alcohol do you have on a typical day when you are drinking? Patient does not drink Q3: How often do you have si x or more drinks on one occasion? Never 10/13/2023 PHQ-2 Answer Date Recorded Patient Health Questionnaire-2 Score 0 06/21/2023 Hunger Vital Sign Answer Date Recorded Within the past 12 months, y ou worried that your food would run out before you got the money to buy more. Never true 10/13/19 24 Within the past 12 months, t he food you bought just didn't last and you didn't have money to get more. Never true 10/13/2023 PRAPARE - Transportation Answer Date Re corded In the past 12 months, has l ack of transportation kept you from medical appointments or from getting medications? No 09/25 In the past 12 months, has l ack of transportation kept you from meetings, work, or from getting things needed for daily living? No 10/13/2023 Housing Stability Vital Sign Answer Wilfrid e Recorded In the last 12 months, was t here a time when you were not able to pay the mortgage or rent on time? No 10/13/2023 Number of Places Lived in the Last Year Not on f ile 10/13/2023 In the last 12 months, was t here a time when you did not have a steady place to sleep or slept in a retirement (including now)? No 10/13/2023 CAGE ASSESSMENT Answer Date Recorded Cage unable to access Not on file 10/11/2023 Cage max number of drinks Not on file 2023 Cage Beverages a week Not on file 10/11/2023 Have you ever felt you should CUT down on your d rinking? 0 10/11/2023 Have you been ANNOYED by people criticizing your drinking? 0 10/11/2023 Have you felt GUILTY about your drinking? 0 10/11/2023 Have you had a drink first t michelle in the morning (EYE-YACHT CAPTAIN) to steady your nerves or to get rid of a hangover? 0 10/11/2023 CAGE Questionnaire Score 0 024 Utilities Answer Date Recorded In the past 12 months has th [employer], gas, oil, or water company threatened to shut off services in your home? No 10/13/2023 Comments No Sex and Gender Information Value Date Recorded Sex Assigned at Female 04/02/2021 12:54 PM EST Legal Sex Female 7:37 PM EDT Gender Identity Female 04/02/2021 12:54 PM EST Sexual Orientation Not on file Last Filed Vital Signs Vital Sign Reading Time Taken Comments Blood Pressure 97/60 03/12/2024 12:48 PM EST Pulse 62 03/12/2024 12:48 PM EST Temperature 36.9 C (98.5 F) 02/07/2024 2:20 PM EST Respiratory Rate 16 10/14/2023 11:07 AM EDT Oxygen Saturation 95% 03/12/2024 12:48 PM EST Inhaled Oxygen Concentration - - Weight 49.9 kg (110 lb) 03/12/2024 12:48 PM EST Height 154.9 cm (5' 1 ) 03/12/2024 12:48 PM EST Body Mass Index 20.78 03/12/2024 12:48 PM EST Plan of Treatment Health Maintenance Due Date Last Done Comments [facility]-Bone Density Scan 1945 [facility]-Medicare Annual Wellness (AWV) 1945 [facility]-Infant/Child/Adol SDOH Screenings 1945 [facility]- SDOH Screenings 1964 [facility]-Adult SDOH Screenings 1964 [facility]-DTaP,Tdap,and Td Vaccines (1 - Tdap) 05/31/1996 05/30/1996 [facility]-Zoster Vaccines (1 of 2) 1996 [facility]-Pneumococcal Vaccine: 50+ Years (2 of 2 - PCV) 12/17/2017 12/17/2016 [facility]-RSV Vaccine: 60+ Years or (1 - 1-dose 75+ series) 2021 [facility]-Depression Screening 06/20/2024 06/21/2023 [id number] Vaccine (3 - season) 2024 01/28/2021, 06/03/2020 [facility]-Influenza Vaccine (#1) 11/26/202405/05, 12/18/2020, 11/28/2019, Additional history exists [facility]-Hepatitis C Screening Completed 05/11/2021 HPV Vaccines Aged Out No longer eligi ble based on patient's age to complete this topic [facility]-HIB Vaccines Aged Out No longer e ligible based on patient's age to complete this topic [facility]-Hepatitis A Vaccines Aged Out No longer eligible based on patient's age to complete this topic [facility]-IPV Vaccines Aged Out No longer e ligible based on patient's age to complete this topic [facility]-Rotavirus Vaccines Aged Out No lo nger eligible based on patient's age to complete this topic Medical Devices Implanted Type Area Car Salesman Device Identifier Shelf Expiration Date Model / Serial / Lot Screw 3.5mm Pericortical 2.7mm Hd Selftap 56mm - [id number] Implanted:Qty: 1 on 04/02/2021 by Samuel Aquino MD at [facility] Screw Left: Elbow [employer]-[id number] 04/01/2022 [id number] / / Screw 6.5mm Cannulated 32mm Thrd/100mm - S. - [id number] Implanted:Qty: 1 on 05/27/2021 by Ulices Galvez MD at [facility] Screw Left: Elbow [employer]-[id number] 05/27/2022 [id number] / . / Washer 13mm Lg - S. - [id number] Implanted:Qty: 1 on 05/27/2021 by Ulices Galvez MD at [facility] Washer Left: Elbow [employer] USA-[id number] 05/27/2022 219.99 / . / Wire Threaded Tip K 1.6 Mm - [id number] Implanted:Qty: 1 on 04/02/2021 by Samuel Aquino MD at [facility] Wire Left: Elbow [employer]-[id number] 04/01/2022 [id number] / / Rods/Screws N/A: Back Screw 2.5mm Peg 20mm - [id number] Implanted:Qty: 2 on 04/02/2021 by Samuel Aquino MD at [facility] Left: Elbow [employer]-[id number] 04/02/2021 [id number] / / Screw 2.5mm Peg 22mm - [id number] Implanted:Qty: 2 on 04/02/2021 by Samuel Aquino MD at [facility] Left: Elbow [employer]-[id number] 04/02/2021 [id number] / / Dist Hum Med Lt 13hole 127mm - [id number] Implanted:Qty: 1 on 04/02/2021 by Samuel Aquino MD at [facility] Left: Elbow [employer]-[id number] 04/02/2021 [id number] / / Screw 2.7mm Cortical Locking 50mm - [id number] Implanted:Qty: 2 on 04/02/2021 by Samuel Aquino MD at [facility] Left: Elbow [employer]-04/02/2021 [id number] / / Screw 3.5mm Cortical Solid Ft 24mm - [id number] Implanted:Qty: 1 on 04/02/2021 by Samuel Aquino MD at [facility] Left: Elbow [employer]-[id number] 04/02/2021 [id number] / / Screw 3.5mm Cortical Solid Ft 22mm - [id number] Implanted:Qty: 2 on 04/02/2021 by Samuel Aquino MD at [facility] Left: Elbow [employer]-[id number] 04/02/2021 [id number] / / Screw 3.5mm Cortical Solid Ft 30mm - [id number] Implanted:Qty: 1 on 04/02/2021 by Samuel Aquino MD at [facility] Left: Elbow [employer]-[id number] 04/02/2021 [id number] / / Shanda Joseph Fast Set 10cc - [id number] Implanted:Qty: 1 on 04/02/2021 by Samuel Aquino MD at [facility] Left: Elbow [employer]-[id number] 08/22/2021 [id number] / / Plate Prox Lloyd Ulna 4h Lt - [id number] Implanted:Qty: 1 on 04/02/2021 by Samuel Aquino MD at [facility] Left: Elbow [employer]-[id number] 04/02/2021 [id number] / / Screw 3.5mm Periart 2.7mm Head Selftap 20mm - [id number] Implanted:Qty: 1 on 04/02/2021 by Samuel Aquino MD at [facility] Left: Elbow [employer]-[id number] 04/02/2021 [id number] / / Screw 3.5mm Periart 2.7mm Head Selftap 24mm - [id number] Implanted:Qty: 1 on 04/02/2021 by Samuel Aquino MD at [facility] Left: Elbow [employer]-[id number] 04/02/2021 [id number] / / Screw 3.5mm Periart 2.7mm Head Selftap 18mm - [id number] Implanted:Qty: 1 on 04/02/2021 by Samuel Aquino MD at [facility] Left: Elbow [employer]-[id number] 04/02/2021 [id number] / / Screw 3.5mm Periart 2.7mm Head Selftap 44mm - [id number] Implanted:Qty: 1 on 04/02/2021 by Samuel Aquino MD at [facility] Left: Elbow [employer]-[id number] 04/02/2021 [id number] / / Screw 3.5mm Periart 2.7mm Head Selftap 110mm - [id number] Implanted:Qty: 1 on 04/02/2021 by Samuel Aquino MD at [facility] Left: Elbow [employer]-[id number] 04/02/2021 [id number] / / Screw 2.7mm Cortical Small Hex Selftap 60mm - [id number] Implanted:Qty: 1 on 04/02/2021 by Samuel Aquino MD at [facility] Left: Elbow [employer]-[id number] 04/02/2021 [id number] / / Cement Palacos Lv W Gent - [id number] Implanted:Qty: 2 on 12/21/2022 by Deshawn Miller MD at [facility] Left: Knee [employer]-[id number] 11/26/2023 [id number] / / [id number] Cement Palacos Lv W Gent - [id number] Implanted:Qty: 4 on 12/21/2022 by Deshawn Miller MD at [facility] Left: Knee [employer]-[id number] 05/26/2023 [id number] / / [id number] Cement Palacos Mv - [id number] Implanted:Qty: 1 on 12/21/2022 by Deshawn Miller MD at [facility] Left: Knee [employer]-[id number] 03/27/2027 [id number] / / [id number] Chg Base Leg Tib Hk Sz 2 Lt - [id number] Implanted:Qty: 1 on 12/21/2022 by Deshawn Miller MD at [facility] Left: Knee [employer]-[id number] 10/11/2031 [id number] / / [id number] Chg Stem Lgn [id number] - [id number] Implanted:Qty: 1 on 12/21/2022 by Deshawn Miller MD at [facility] Left: Knee [employer]-[id number] 03/21/2027 [id number] / / [id number] Chg Stem Lgn [id number] - [id number] Implanted:Qty: 1 on 12/21/2022 by Deshawn Miller MD at [facility] Left: Knee [employer]-[id number] 01/13/2030 [id number] / / [id number] Chg Base Leg Fem Hk Sz 4 Lt - [id number] Implanted:Qty: 1 on 12/21/2022 by Deshawn Miller MD at [facility] Left: Knee [employer]-[id number] 09/08/2025 [id number] / / [id number] Chg Patella Gii Oval Resurfaci - [id number] Implanted:Qty: 1 on 12/21/2022 by Deshawn Miller MD at [facility] Left: Knee [employer]-[id number] 09/21/2032 [id number] / / [id number] Chg Sleeve Legion Hnge 11mm Josh - [id number] Implanted:Qty: 1 on 12/21/2022 by Deshawn Miller MD at [facility] Left: Knee [employer]-[id number] 04/27/2032 [id number] / / [id number] Chg Insert Lgn Hng Gd Mt 11mm - [id number] Implanted:Qty: 1 on 12/21/2022 by Deshawn Miller MD at [facility] Left: Knee [employer]-[id number] 11/03/2031 [id number] / / [id number] Procedures Procedure Name Priority Date/Time Associated Diagnosis Comments HEPATITIS C ANTIBODY - ED W/REFLEX TO HCV QUANT PCR STAT 05/11/2021 9:50 PM EST from Last 3 Months or Most Recently Relevant to Health Maintenance Results * [place] Hepatitis C Antibody (05/11/2021 9:50 PM EST) Hepatitis C Antibody Negative Negative 05/11/2021 11:12 PM EST [facility] Blood Venous blood specimen / Unknown Venipuncture / Unknown 05/11/2021 9:50 PM EST 05/11/2021 9:59 PM EST us Mally Vital MD LAB BLOOD ORDERABLES Final Res ult [facility] [address] [place] [address] from Last 3 Months or Most Recently Relevant to Health Maintenance Insurance MEDICARE Member Subscriber Plan / Payer (Ef fective 2011-Present) Name:Britta Xiao Member ID:[id number] Relation to Subscriber:Self Name:Britta Xiao Subscriber ID:[id number] Payer ID:MEDICARE Group ID:Not on file Type:Medicare Address: [place] [id number] [facility] Advance Directives * Full Code (Latest Code Status on File) Date Activated Date Inactivated Comments 10/12/2023 1:29 PM 10/14/2023 5:14 PM Question Answer Comments Patient has decision-making capacity? Yes * Full Code Date Activated Date Inactivated Comments 10/11/2023 3:34 PM 10/12/2023 1:29 PM Question Answer Comments Patient has decision-making capacity? Yes * Full Code Date Activated Date Inactivated Comments 12/21/2022 2:26 PM 12/24/2022 2:47 PM Question Answer Comments Patient has decision-making capacity? Yes * Full Code Date Activated Date Inactivated Comments 05/26/2021 12:10 PM 06/04/2021 4:05 PM Question Answer Comments Patient has decision-making capacity? Yes * Full Code Date Activated Date Inactivated Comments 05/12/2021 1:14 AM 05/19/2021 3:12 PM Question Answer Comments Patient has decision-making capacity? Yes Care Teams Brass Finisher Relationship Specialty Start Date End Date Elijah Cota MD [address] [place] [place] [address] PCP - General 03/26/21
[2025-01-18 18:41] LABS: Microscopic, Urine URINE MICROSCOPIC (MICROSCOPIC)
[2025-01-18 18:45] LABS: Bilirubin,Urine Negative (Negative); Color,Urine YELLOW (Yellow); Glucose,Urine (UA) Negative (Negative); Ketones,Urine TRACE (Negative); Leukocyte Esterase,Urine 2+ (Negative); PH,Urine 8.5 (5.0-8.5); Protein,Urine TRACE (Negative); Specific Gravity, Urine 1.015 (1.005-1.030); Urobilinogen,Urine 0.2 EU/dl (0.2)
[2025-01-18 19:00] LABS: Bacteria,Urine 4+ /lpf; Squamous Epithelial Cell,Urine Occasional #/hpf (0-5); WBC,Urine TNTC #/hpf (0-3)
== END 2025-01-18 23:59 | disposition home or self-care (01) ==
LOC: LAB.DROPOF 17:28
PROVIDERS: PCP Nurse Practitioner Family; Visit Provider Nurse Practitioner Family
DX: N39.0 Urinary tract infection, site not specified (principal); R41.82 Altered mental status, unspecified
CPT/HCPCS: 81001; 87086; 87088; 87186

== ENCOUNTER 2025-02-07 18:59 | Outpatient (CLI) | payer MEDICARE, OTHER, SELFPAY ==
[2025-02-07 19:23] LABS: Microscopic, Urine URINE MICROSCOPIC (MICROSCOPIC)
[2025-02-07 19:27] LABS: Bilirubin,Urine Negative (Negative); Color,Urine YELLOW (Yellow); Glucose,Urine (UA) Negative (Negative); Ketones,Urine TRACE (Negative); Leukocyte Esterase,Urine TRACE (Negative); PH,Urine 5.5 (5.0-8.5); Protein,Urine TRACE (Negative); Specific Gravity, Urine 1.020 (1.005-1.030); Urobilinogen,Urine 0.2 EU/dl (0.2)
[2025-02-07 19:44] LABS: Bacteria,Urine 4+ /lpf; RBC,Urine TNTC #/hpf (0-3); WBC,Urine TNTC #/hpf (0-3)
== END 2025-02-07 23:59 | disposition home or self-care (01) ==
LOC: LAB.DROPOF 19:00
PROVIDERS: PCP Nurse Practitioner Family; Visit Provider Nurse Practitioner Family
DX: N39.0 Urinary tract infection, site not specified (principal)
CPT/HCPCS: 81001; 87086; 87088

== ENCOUNTER 2025-02-15 17:57 | Outpatient (CLI) | payer MEDICARE, OTHER, SELFPAY ==
[2025-02-15 18:11] LABS: Microscopic, Urine URINE MICROSCOPIC (MICROSCOPIC)
[2025-02-15 18:18] LABS: Bilirubin,Urine Negative (Negative); Color,Urine YELLOW (Yellow); Glucose,Urine (UA) Negative (Negative); Ketones,Urine Negative (Negative); Leukocyte Esterase,Urine TRACE (Negative); PH,Urine 6.0 (5.0-8.5); Protein,Urine Negative (Negative); Specific Gravity, Urine 1.025 (1.005-1.030); Urobilinogen,Urine 0.2 EU/dl (0.2)
[2025-02-15 18:41] LABS: Bacteria,Urine 3+ /lpf; Mucus,Urine 1+ /lpf; RBC,Urine 20-50 #/hpf (0-3); WBC,Urine 50-100 #/hpf (0-3)
== END 2025-02-15 23:59 | disposition home or self-care (01) ==
LOC: LAB.DROPOF 17:59
PROVIDERS: PCP Nurse Practitioner Family; Visit Provider Nurse Practitioner Family
DX: N39.0 Urinary tract infection, site not specified (principal); Z16.24 Resistance to multiple antibiotics
CPT/HCPCS: 81001; 87086; 87088; 87186

== ENCOUNTER 2025-02-24 11:32 | Outpatient (CLI) | payer MEDICARE, OTHER, SELFPAY ==
--- OUTSIDE RECORDS SUMMARY | 2025-02-24 11:34 | XMS_ITS | Clinical Summary ---
Author Organization [facility] Address [address] [place] [address] Care Team Providers Care Intelligence Clerk Name Role Phone Elijah Cota MD Primary Care Provider + [phone] Allergies Active Allergy Reactions Criticality Noted Date [...] for 30 minutes after Active HYDROcodone-chandni taminophen ([place]) 5-325 MG tablet Take 1 tablet (5 mg of hydrocodone) by mouth every 12 (twelve) hours if needed for moderate pain. Active Wound Dressings ([facility] WOUND &BURN DRESSING EX) Apply [...] (06/01/2021): Added automatically from request for surgery [id number] HTN (hypertension) 05/12/2021 Hypothyroidism 05/12/2021 Gastroesophageal reflux disease 05/12/2021 Elbow fracture, left, closed, initial encounter 04/02/2021 Resolved Problems Problem Noted Date Diagnosed Date Resolved Date DJD (degenerative joint disease) 10/26/2022 12/23/2024 Hardware complicating wound infection 05/26/2021 10/14/2023 Exposed orthopaedic hardware 05/26/2021 06/03/2021 Overview (06/01/2021): Added automatically from request for surgery [id number] Fall 05/12/2021 05/18/2021 Arthritis 05/12/2021 12/16/2024 Exposed orthopaedic hardware 05/11/2021 06/01/2021 Overview (05/12/2021): Added automatically from request for surgery [id number] Elbow pain, left 03/31/2021 10/14/2023 Overview (03/31/2021): Added automatically from request for surgery [id number] Immunizations Immunization Administration Dates Next Due Influenza, [...] place to sleep or slept in a senior care (including now)? No 10/13/2023 CAGE ASSESSMENT Answer [...] drink first t michelle in the morning (EYE-COURT ADVOCATE) to steady your nerves or to get rid of a hangover? 0 10/11/2023 CAGE Questionnaire Score 0 024 Utilities Answer Date Recorded In the past 12 months has th [employer], gas, oil, or water company threatened to [...] Scan 1946 [facility]-Medicare Annual Wellness (AWV) 1946 [facility]-/Child/Adol SDOH Screenings 1946 [facility]- SDOH Screenings 1964 [facility]-Adult SDOH Screenings 1964 [facility]-DTaP,Tdap,and Td Vaccines (1 - Tdap) 05/31/1996 05/30/1996 [facility]-Zoster Vaccines (1 of 2) 1996 [facility]-Pneumococcal Vaccine: 50+ Years (2 of 2 - PCV) 12/17/2017 12/17/2016 [facility]-RSV Vaccine: 60+ Years or (1 - 1-dose 75+ series) 2021 [facility]-Depression Screening 06/20/2024 06/21/2023 [id number]-05 Vaccine (3 - season) 2024 01/28/2021, 06/03/2020 [...] this topic Medical Devices Implanted Type Area Pathologist Device Identifier Shelf Expiration Date Model / Serial / Lot Screw 3.5mm Pericortical 2.7mm Hd Selftap 56mm - [id number] Implanted:Qty: 1 on 04/02/2021 by Samuel Aquino MD at [facility] Screw Left: Elbow [employer] Inc-[id number] 04/01/2022 [id number] / / Screw 6.5mm Cannulated 32mm Thrd/100mm - S. - [id number] Implanted:Qty: 1 on 05/27/2021 by Ulices Galvez MD at [facility] Screw Left: Elbow [employer]-[id number] 05/27/2022 208.442 / . / Washer 13mm Lg - S. - [id number] Implanted:Qty: 1 on 05/27/2021 by Ulices Galvez MD at [facility] Washer Left: Elbow [employer] USA-[id number] 05/27/2022 219.99 / . / Wire Threaded Tip K 1.6 Mm - [id number] Implanted:Qty: 1 on 04/02/2021 by Samuel Aquino MD at [facility] Wire Left: Elbow [employer] Inc-[id number] 04/01/2022 [id number] / / Rods/Screws N/A: Back Screw 2.5mm Peg 20mm - [id number] Implanted:Qty: 2 on 04/02/2021 by Samuel Aquino MD at [facility] Left: Elbow [employer] Inc-[id number] 04/02/2021 [id number] / / Screw 2.5mm Peg 22mm - [id number] Implanted:Qty: 2 on 04/02/2021 by Samuel Aquino MD at [facility] Left: Elbow [employer] Inc-[id number] 04/02/2021 [id number] / / Dist Hum Med Lt 13hole 127mm - [id number] Implanted:Qty: 1 on 04/02/2021 by Samuel Aquino MD at [facility] Left: Elbow [employer] Inc-[id number] 04/02/2021 [id number] / / Screw 2.7mm Cortical Locking 50mm - [id number] Implanted:Qty: 2 on 04/02/2021 by Samuel Aquino MD at [facility] Left: Elbow [employer] Inc-04/02/2021 [id number] / / Screw 3.5mm Cortical Solid Ft 24mm - [id number] Implanted:Qty: 1 on 04/02/2021 by Samuel Aquino MD at [facility] Left: Elbow [employer] Inc-[id number] 04/02/2021 [id number] / / Screw 3.5mm Cortical Solid Ft 22mm - [id number] Implanted:Qty: 2 on 04/02/2021 by Samuel Aquino MD at [facility] Left: Elbow [employer] Inc-140314 04/02/2021 [id number] / / Screw 3.5mm Cortical Solid Ft 30mm - [id number] Implanted:Qty: 1 on 04/02/2021 by Samuel Aquino MD at [facility] Left: Elbow [employer] Inc-366750 04/02/2021 [id number] / / Shanda Joseph Fast Set 10cc - [id number] Implanted:Qty: 1 on 04/02/2021 by Samuel Aquino MD at [facility] Left: Elbow [employer] USA-115296 08/22/2021 07.704.110S / / Plate Prox Lloyd Ulna 4h Lt - [id number] Implanted:Qty: 1 on 04/02/2021 by Samuel Aquino MD at [facility] Left: Elbow [employer] Inc-[id number] 04/02/2021 [id number] / / Screw 3.5mm Periart 2.7mm Head Selftap 20mm - [id number] Implanted:Qty: 1 on 04/02/2021 by Samuel Aquino MD at [facility] Left: Elbow [employer] Inc-[id number] 04/02/2021 [id number] / / Screw 3.5mm Periart 2.7mm Head Selftap 24mm - [id number] Implanted:Qty: 1 on 04/02/2021 by Samuel Aquino MD at [facility] Left: Elbow [employer] Inc-352035 04/02/2021 [id number] / / Screw 3.5mm Periart 2.7mm Head Selftap 18mm - [id number] Implanted:Qty: 1 on 04/02/2021 by Samuel Aquino MD at [facility] Left: Elbow [employer]-[id number] 04/02/2021 [id number] / / Screw 3.5mm Periart 2.7mm Head Selftap 44mm - [id number] Implanted:Qty: 1 on 04/02/2021 by Samuel Aquino MD at [facility] Left: Elbow [employer] Inc-855057 04/02/2021 [id number] / / Screw 3.5mm Periart 2.7mm Head Selftap 110mm - [id number] Implanted:Qty: 1 on 04/02/2021 by Samuel Aquino MD at [facility] Left: Elbow [employer] Inc-[id number] 04/02/2021 [id number] / / Screw 2.7mm Cortical Small Hex Selftap 60mm - [id number] Implanted:Qty: 1 on 04/02/2021 by Samuel Aquino MD at [facility] Left: Elbow [employer] Inc-756212 04/02/2021 [id number] / / Cement Palacos Lv W Gent - [id number] Implanted:Qty: 2 on 12/21/2022 by Deshawn Miller MD at [facility] Left: Knee [employer] Inc-519655 11/26/2023 [id number] / / [id number] Cement Palacos Lv W Gent - [id number] Implanted:Qty: 4 on 12/21/2022 by Deshawn Miller MD at [facility] Left: Knee [employer]-149767 05/26/2023 [id number] / / [id number] Cement Palacos Mv - [id number] Implanted:Qty: 1 on 12/21/2022 by Deshawn Miller MD at [facility] Left: Knee [employer] Inc-513682 03/27/2027 [id number] / / [id number] Chg Base Leg Tib Hk Sz 2 Lt - [id number] Implanted:Qty: 1 on 12/21/2022 by Deshawn Miller MD at [facility] Left: Knee [employer] Inc-[id number] 10/11/2031 [id number] / / [id number] Chg Stem Lgn [id number] - [id number] Implanted:Qty: 1 on 12/21/2022 by Deshawn Miller MD at [facility] Left: Knee [employer] Inc-148411 03/21/2027 [id number] / / [id number] Chg Stem Lgn [id number] - [id number] Implanted:Qty: 1 on 12/21/2022 by Deshawn Miller MD at [facility] Left: Knee [employer]-[id number] 01/13/2030 [id number] / / [id number] Chg Base Leg Fem Hk Sz 4 Lt - [id number] Implanted:Qty: 1 on 12/21/2022 by Deshawn Miller MD at [facility] Left: Knee [employer]-475354 09/08/2025 [id number] / / [id number] Chg Patella Gii Oval Resurfaci - [id number] Implanted:Qty: 1 on 12/21/2022 by Deshawn Miller MD at [facility] Left: Knee [employer] Inc-[id number] 09/21/2032 [id number] / / [id number] Chg Sleeve Legion Hnge 11mm Josh - [id number] Implanted:Qty: 1 on 12/21/2022 by Deshawn Miller MD at [facility] Left: Knee [employer]-784147 04/27/2032 [id number] / / [id number] Chg Insert Lgn Hng Gd Mt 11mm - [id number] Implanted:Qty: 1 on 12/21/2022 by Deshawn Miller MD at [facility] Left: Knee [employer]-469761 11/03/2031 [id number] / / [id number] Procedures Procedure Name Priority Date/Time Associated Diagnosis Comments HEPATITIS C ANTIBODY - ED W/REFLEX TO HCV QUANT PCR STAT 05/11/2021 9:50 PM EST from Last 3 Months or Most Recently Relevant to Health Maintenance Results * [place] Hepatitis C Antibody (05/11/2021 9:50 PM EST) Hepatitis C Antibody Negative Negative 05/11/2021 11:12 PM EST [facility] Blood Venous blood specimen / Unknown Venipuncture / Unknown 05/11/2021 9:50 PM EST 05/11/2021 9:59 PM EST us Mally Vital MD LAB BLOOD ORDERABLES Final Res ult [facility] [address] [place] [address] from Last 3 Months or Most Recently Relevant to Health Maintenance Insurance MEDICARE Member Subscriber Plan / Payer (Ef fective 2011-Present) Name:Britta Xiao Member ID:[id number] Relation to Subscriber:Self Name:Britta Xiao Subscriber ID:[id number] Payer ID:MEDICARE Group ID:Not on file Type:Medicare Address: [place] [phone] [facility] Advance Directives * Full Code (Latest [...] Patient has decision-making capacity? Yes Care Teams Intelligence Clerk Relationship Specialty Start Date End Date Elijah Cota MD [address] [place] [address] PCP - General 03/26/21
--- OUTSIDE RECORDS SUMMARY | 2025-02-24 11:34 | XMS_ITS | Encounter Summary ---
Author Organization Healthcare Address [address] [place] [address] Care Team Providers Care Patient Observation Assistant Name Role Phone Elijah Cota MD Primary Care Provider [phone] Reason for Visit * Auth/Cert Specialty Diagnoses / Procedures Referred By Contac t Referred To Contact Diagnoses Hardware complicating wound infection, sequela Jaden Cantrell MD [address] [facility] [address] [place] [address] Phone: tel: fax: [facility] [address] [place] [address] Phone: tel: Referral ID Status Reason Start Date Expiration Date Visits Re quested Visits Authorized [id number] 1 1 Encounter Details Date Type Department Care Team (Late st Contact Info) Description 06/04/2021 Lab Requisition [facility] [address] [place] [address] Steve Hurtado MD [address] [facility] [address] [place] [address] Osteomyelitis, unspecified (CMS/HCC) Social History [...] Final Re sult [facility] [address] [place] [address] documented in this encounter Visit Diagnoses Diagnosis Osteomyelitis, unspecified (CMS/HCC) documented in this encounter Additional Health Concerns Assessment Noted Time A fall risk assessment has been complete d for the patient 05/26/2021 8:30 AM EST documented as of this encounter Care Teams Patient Observation Assistant Relationship Specialty Start Date End Date Elijah Cota MD [address] [place] [address] PCP - General 03/26/21 documented as of this encounter
[2025-02-24 11:50] LABS: Hematocrit 29.6 % (37.0-47.0); Hemoglobin 10.3 g/dL (12.2-16.2); Immature Granulocytes % 0.3 %; Mean Corpuscular HGB Conc 34.8 g/dL (31.8-35.4); Mean Corpuscular Hemoglobin 28.3 pg (27.0-31.2); Mean Corpuscular Volume 81.3 fl (81-99); Nucleated Red Blood Cells % 0.8 %; Platelet Count 163 K/mm3 (142-424); Red Blood Count 3.64 M/mm3 (4.20-5.40); Red Cell Distribution Width-SD 43.9 fL; White Blood Count 3.5 K/mm3 (4.8-10.8)
[2025-02-24 12:00] LABS: Anion Gap 4.9 mEq/L (5-15); Blood Urea Nitrogen 49 mg/dl (7-17); Calcium 8.3 mg/dl (8.4-10.2); Carbon Dioxide 26 mmol/L (22.0-30.0); Chloride 100 mmol/L (98-107); Creatinine,Serum 0.90 mg/dl (0.52-1.04); Estimated Glomerular Filt Rate 61 ml/min (>60); GFR (African American) 73 ML/MIN (>60); Glucose 71 mg/dl (74-100); Potassium 3.9 mmoL/L (3.5-5.1); Sodium 127 mmol/L (136-145)
== END 2025-02-24 23:59 | disposition home or self-care (01) ==
LOC: LAB.DROPOF 11:32
PROVIDERS: PCP Nurse Practitioner Family; Visit Provider Nurse Practitioner Family
DX: R41.82 Altered mental status, unspecified (principal)
CPT/HCPCS: 80048; 85025

== ENCOUNTER 2025-02-26 11:37 | Outpatient (CLI) | payer MEDICARE, OTHER, SELFPAY ==
--- OUTSIDE RECORDS SUMMARY | 2025-02-26 11:42 | XMS_ITS | Encounter Summary ---
Author Organization Healthcare Address [address] [place] [address] Care Team Providers Care Massage Therapist Name Role Phone Elijah Cota MD Primary Care Provider [phone] Reason for Visit * Auth/Cert Specialty Diagnoses / Procedures Referred By Contac t Referred To Contact Diagnoses Hardware complicating wound infection, sequela Jaden Cantrell MD [address] [facility] [address] [place] [address] Phone: tel: fax: [facility] Emergency [facility] [address] [place] [address] Phone: tel: Referral ID Status Reason Start Date Expiration Date Visits Re quested Visits Authorized [id number] 1 1 Encounter Details Date Type Department Care Team (Late st Contact Info) Description 06/04/2021 Lab Requisition [facility] [address] [place] [address] Steve Hurtado MD [address] [facility] [address] [place] [address] Osteomyelitis, unspecified (CMS/HCC) Social History [...] Final Re sult [facility] [address] [place] [address] documented in this encounter Visit Diagnoses Diagnosis Osteomyelitis, unspecified (CMS/HCC) documented in this encounter Additional Health Concerns Assessment Noted Time A fall risk assessment has been complete d for the patient 05/26/2021 8:30 AM EST documented as of this encounter Care Teams Massage Therapist Relationship Specialty Start Date End Date Elijah Cota MD [address] [place] [address] PCP - General 03/26/21 documented as of this encounter
--- OUTSIDE RECORDS SUMMARY | 2025-02-26 11:42 | XMS_ITS | Clinical Summary ---
Author Organization [facility] Address [address] [place] [address] Care Team Providers Care Speedboat Operator Name Role Phone Elijah Cota MD Primary Care Provider + [phone] Allergies Active Allergy Reactions Criticality Noted Date [...] for 30 minutes after Active HYDROcodone-chandni taminophen ([place]) 5-325 MG tablet Take 1 tablet (5 mg of hydrocodone) by mouth every 12 (twelve) hours if needed for moderate pain. Active Wound Dressings ([facility] WOUND &BURN DRESSING EX) Apply topically 1 [...] (06/01/2021): Added automatically from request for surgery [id number] HTN (hypertension) 05/12/2021 Hypothyroidism 05/12/2021 Gastroesophageal reflux disease 05/12/2021 Elbow fracture, left, closed, initial encounter 04/02/2021 Resolved Problems Problem Noted Date Diagnosed Date Resolved Date DJD (degenerative joint disease) 10/26/2022 12/23/2024 Hardware complicating wound infection 05/26/2021 10/14/2023 Exposed orthopaedic hardware 05/26/2021 06/03/2021 Overview (06/01/2021): Added automatically from request for surgery [id number] Fall 05/12/2021 05/18/2021 Arthritis 05/12/2021 12/16/2024 Exposed orthopaedic hardware 05/11/2021 06/01/2021 Overview (05/12/2021): Added automatically from request for surgery [id number] Elbow pain, left 03/31/2021 10/14/2023 Overview (03/31/2021): Added automatically from request for surgery [id number] Immunizations Immunization Administration Dates Next Due Influenza, [...] and Family Not on file 10/13/2023 Attends [employer] Not on file 10/12 Active Member [...] place to sleep or slept in a alf (including now)? No 10/13/2023 CAGE ASSESSMENT Answer [...] drink first t michelle in the morning (EYE-BULLET ASSEMBLY PRESS OPERATOR) to steady your nerves or to get rid of a hangover? 0 10/11/2023 CAGE Questionnaire Score 0 024 Utilities Answer Date Recorded In the past 12 months has th [employer], gas, oil, or water company threatened to [...] 75+ series) 2021 [facility]-Depression Screening 06/20/2024 06/21/2023 [id number]-45 Vaccine (3 - season) 2024 01/28/2021, 06/03/2020 [...] this topic Medical Devices Implanted Type Area Aerosol Line Operator Device Identifier Shelf Expiration Date Model / Serial / Lot Screw 3.5mm Pericortical 2.7mm Hd Selftap 56mm - [id number] Implanted:Qty: 1 on 04/02/2021 by Samuel Aquino MD at [facility] Screw Left: Elbow [employer]-[id number] 04/01/2022 [id number] / / Screw 6.5mm Cannulated 32mm Thrd/100mm - S. - [id number] Implanted:Qty: 1 on 05/27/2021 by Ulices Galvez MD at [facility] Screw Left: Elbow [employer]-825096 05/27/2022 208.442 / . / Washer 13mm Lg - S. - [id number] Implanted:Qty: 1 on 05/27/2021 by Ulices Galvez MD at [facility] Washer Left: Elbow [employer]-883592 05/27/2022 219.99 / . / Wire Threaded Tip K 1.6 Mm - [id number] Implanted:Qty: 1 on 04/02/2021 by Samuel Aquino MD at [facility] Wire Left: Elbow [employer] Inc-075730 04/01/2022 8290-16-006 / / Rods/Screws N/A: Back Screw 2.5mm Peg 20mm - [id number] Implanted:Qty: 2 on 04/02/2021 by Samuel Aquino MD at [facility] Left: Elbow [employer] Inc-[id number] 04/02/2021 [id number] / / Screw 2.5mm Peg 22mm - [id number] Implanted:Qty: 2 on 04/02/2021 by Samuel Aquino MD at [facility] Left: Elbow [employer]-[id number] 04/02/2021 [id number] / / Dist Hum Med Lt 13hole 127mm - [id number] Implanted:Qty: 1 on 04/02/2021 by Samuel Aquino MD at [facility] Left: Elbow [employer] Inc-412363 04/02/2021 [id number] / / Screw 2.7mm Cortical Locking 50mm - [id number] Implanted:Qty: 2 on 04/02/2021 by Samuel Aquino MD at [facility] Left: Elbow [employer] Inc-04/02/2021 [id number] / / Screw 3.5mm Cortical Solid Ft 24mm - [id number] Implanted:Qty: 1 on 04/02/2021 by Samuel Aquino MD at [facility] Left: Elbow [employer] Inc-467567 04/02/2021 [id number] / / Screw 3.5mm Cortical Solid Ft 22mm - [id number] Implanted:Qty: 2 on 04/02/2021 by Samuel Aquino MD at [facility] Left: Elbow [employer] Inc-[id number] 04/02/2021 [id number] / / Screw 3.5mm Cortical Solid Ft 30mm - [id number] Implanted:Qty: 1 on 04/02/2021 by Samuel Aquino MD at [facility] Left: Elbow [employer] Inc-[id number] 04/02/2021 [id number] / / Shanda Joseph Fast Set 10cc - [id number] Implanted:Qty: 1 on 04/02/2021 by Samuel Aquino MD at [facility] Left: Elbow [employer] USA-209731 08/22/2021 07.704.110S / / Plate Prox Lloyd Ulna 4h Lt - [id number] Implanted:Qty: 1 on 04/02/2021 by Samuel Aquino MD at [facility] Left: Elbow [employer] Inc-735496 04/02/2021 [id number] / / Screw 3.5mm Periart 2.7mm Head Selftap 20mm - [id number] Implanted:Qty: 1 on 04/02/2021 by Samuel Aquino MD at [facility] Left: Elbow [employer] Inc-022237 04/02/2021 [id number] / / Screw 3.5mm Periart 2.7mm Head Selftap 24mm - [id number] Implanted:Qty: 1 on 04/02/2021 by Samuel Aquino MD at [facility] Left: Elbow [employer] Inc-527385 04/02/2021 [id number] / / Screw 3.5mm Periart 2.7mm Head Selftap 18mm - [id number] Implanted:Qty: 1 on 04/02/2021 by Samuel Aquino MD at [facility] Left: Elbow [employer] Inc-[id number] 04/02/2021 [id number] / / Screw 3.5mm Periart 2.7mm Head Selftap 44mm - [id number] Implanted:Qty: 1 on 04/02/2021 by Samuel Aquino MD at [facility] Left: Elbow [employer] Inc-449792 04/02/2021 [id number] / / Screw 3.5mm Periart 2.7mm Head Selftap 110mm - [id number] Implanted:Qty: 1 on 04/02/2021 by Samuel Aquino MD at [facility] Left: Elbow [employer] Inc-[id number] 04/02/2021 [id number] / / Screw 2.7mm Cortical Small Hex Selftap 60mm - [id number] Implanted:Qty: 1 on 04/02/2021 by Samuel Aquino MD at [facility] Left: Elbow [employer] Inc-510444 04/02/2021 [id number] / / Cement Palacos Lv W Gent - [id number] Implanted:Qty: 2 on 12/21/2022 by Deshawn Miller MD at [facility] Left: Knee [employer] Inc-764782 11/26/2023 [id number] / / [id number] Cement Palacos Lv W Gent - [id number] Implanted:Qty: 4 on 12/21/2022 by Deshawn Miller MD at [facility] Left: Knee [employer] Inc-912628 05/26/2023 [id number] / / [id number] Cement Palacos Mv - [id number] Implanted:Qty: 1 on 12/21/2022 by Deshawn Miller MD at [facility] Left: Knee [employer] Inc-004787 03/27/2027 [id number] / / [id number] Chg Base Leg Tib Hk Sz 2 Lt - [id number] Implanted:Qty: 1 on 12/21/2022 by Deshawn Miller MD at [facility] Left: Knee [employer] Inc-500043 10/11/2031 [id number] / / [id number] Chg Stem Lgn [id number] - [id number] Implanted:Qty: 1 on 12/21/2022 by Deshawn Miller MD at [facility] Left: Knee [employer] Inc-[id number] 03/21/2027 [id number] / / [id number] Chg Stem Lgn [id number] - [id number] Implanted:Qty: 1 on 12/21/2022 by Deshawn Miller MD at [facility] Left: Knee [employer] Inc-120888 01/13/2030 [id number] / / [id number] Chg Base Leg Fem Hk Sz 4 Lt - [id number] Implanted:Qty: 1 on 12/21/2022 by Deshawn Miller MD at [facility] Left: Knee [employer] Inc-698986 09/08/2025 [id number] / / [id number] Chg Patella Gii Oval Resurfaci - [id number] Implanted:Qty: 1 on 12/21/2022 by Deshawn Miller MD at [facility] Left: Knee [employer] Inc-612732 09/21/2032 [id number] / / [id number] Chg Sleeve Legion Hnge 11mm Josh - [id number] Implanted:Qty: 1 on 12/21/2022 by Deshawn Miller MD at [facility] Left: Knee [employer] Inc-903004 04/27/2032 [id number] / / [id number] Chg Insert Lgn Hng Gd Mt 11mm - [id number] Implanted:Qty: 1 on 12/21/2022 by Deshawn Miller MD at [facility] Left: Knee [employer] Inc-811027 11/03/2031 [id number] / / [id number] Procedures Procedure Name Priority Date/Time Associated Diagnosis Comments HEPATITIS C ANTIBODY - ED W/REFLEX TO HCV QUANT PCR STAT 05/11/2021 9:50 PM EST from Last 3 Months or Most Recently Relevant to Health Maintenance Results * [place] Hepatitis C Antibody (05/11/2021 9:50 PM EST) Hepatitis C Antibody Negative Negative 05/11/2021 11:12 PM EST [facility] Blood Venous blood specimen / Unknown Venipuncture / Unknown 05/11/2021 9:50 PM EST 05/11/2021 9:59 PM EST us Mally Vital MD LAB BLOOD ORDERABLES Final Res ult [facility] [address] [place] [address] from Last 3 Months or Most Recently Relevant to Health Maintenance Insurance MEDICARE Member Subscriber Plan / Payer (Ef fective 2011-Present) Name:Britta Xiao Member ID:[id number] Relation to Subscriber:Self Name:Britta Xiao Subscriber ID:[id number] Payer ID:MEDICARE Group ID:Not on file Type:Medicare Address: [place] [phone] [facility] Advance Directives * Full Code (Latest Code [...] Patient has decision-making capacity? Yes Care Teams Speedboat Operator Relationship Specialty Start Date End Date Elijah Cota MD [address] [place] [address] PCP - General 03/26/21
[2025-02-26 12:35] LABS: Anion Gap 6.5 mEq/L (5-15); Blood Urea Nitrogen 76 mg/dl (7-17); Calcium 8.4 mg/dl (8.4-10.2); Carbon Dioxide 29 mmol/L (22.0-30.0); Chloride 96 mmol/L (98-107); Creatinine,Serum 1.30 mg/dl (0.52-1.04); Estimated Glomerular Filt Rate 40 ml/min (>60); GFR (African American) 48 ML/MIN (>60); Glucose 75 mg/dl (74-100); Potassium 4.5 mmoL/L (3.5-5.1); Sodium 127 mmol/L (136-145)
== END 2025-02-26 23:59 | disposition home or self-care (01) ==
LOC: LAB.DROPOF 11:38
PROVIDERS: PCP Nurse Practitioner Family; Visit Provider Nurse Practitioner Family
DX: G20.C Parkinsonism, unspecified (principal); I10 Essential (primary) hypertension
CPT/HCPCS: 80048

== ENCOUNTER 2025-02-27 23:26 | Observation (INO) | payer MEDICARE, OTHER, SELFPAY ==
--- NOTE | 2025-02-27 23:30 | XR_ITS ---
PROCEDURE INFORMATION: Exam: XR Chest Exam date and time: 02/27/2025 11:41 PM Age: 79 years old Clinical indication: Other: Hypotension TECHNIQUE: Imaging protocol: Radiologic exam of the chest. Views: 1 view. COMPARISON: CR XR CHEST AP 05/11/2021 4:51 PM FINDINGS: Lungs: Fine linear densities are present at the left lung base consistent with subsegmental atelectasis and/or scarring. No focal consolidation. No mass. Pleural spaces: Unremarkable. No pleural effusion. No pneumothorax. Heart/Mediastinum: Unremarkable. No cardiomegaly. Vasculature: Unremarkable. Bones/joints: Severe degenerative changes of the shoulders are noted. Fixation plate of the left humerus has been removed since the prior study. There is evidence of prior hardware fixation of the lumbar spine. IMPRESSION: No consolidation. Subsegmental atelectasis versus scarring at the left lung base.
[2025-02-27 23:31] VITALS: BP 71/44; PULSE 61; RESP 18; TEMP 36.6; O2SAT 96; BMI 26.8
--- NOTE | 2025-02-27 23:49 | ED_ITS ---
Discharge Plan Disposition Patient Disposition: Admitted Clinical Impressions Clinical Impression: Acute hypotension, Azotemia Discharge ED Provider: Anatoliy Hopson General Adult HPI General Chief complaint: Altered Mental Status Stated complaint: Altered Mental Time Seen by Provider: 02/27/25 23:26 Mode of Arrival: EMS Source of Information: EMS Description of Symptoms (Recalled from ER Triage Doc. by RN): patient from [facility] for increased confusion and hypotension. Patient is currently being treated for a UTI, [place] staff stated that she is more confused than normal and her blood pressure was low. History of Present Illness HPI narrative: 79-year-old female presents from [place] [facility] with increased confusion and hypotension. She has been treated for UTI for the last week or so. She was more confused than normal on their evening checks and they noted her blood pressure was low, in the 60s systolic. This was similar for EMS and route and upon arrival to the ER. Patient is well-appearing, has no complaints. Specifically denies any headache chest pain abdominal pain shortness of breath or any other symptoms. No reported fever at home. Related Data Home Medications ?Medication ?Instructions ?Recorded ?Confirmed atorvastatin 40 mg tablet (Lipitor) 40 mg PO DAILY Cho lesterol 01/23/18 02/28/25 temazepam 30 mg capsule 30 mg PO HSP PRN Sleep 01/2302/28/25 celecoxib 100 mg capsule 100 mg PO DAILY Pain 2 10/24/22 omeprazole 20 mg capsule,delayed 20 mg PO DAILY Acid R eflux 12/01/21 10/24/22 release propranolol 10 mg tablet 10 mg PO TID High Blood Pres sure 12/01/21 02/28/25 aripiprazole 5 mg tablet 5 mg PO BID Mood 10/24/22 carbidopa 25 mg-levodopa 250 mg 1 tab PO TID Parkinson s 10/24/22 02/28/25 tablet escitalopram oxalate 20 mg tablet 20 mg PO DAILY Mood 10/24/22 10/24/22 levothyroxine 50 mcg tablet 50 mcg PO DAILY thyroid 02/28/25 mirtazapine 7.5 mg tablet 7.5 mg PO HS Mood 10/24/22 0 10/24/22 polyethylene glycol 3350 17 gram 17 g PO DAILY Constip ation 10/24/22 10/24/22 oral powder packet trazodone 50 mg tablet 50 mg PO HS Sleep 10/24/22 0 10/24/22 losartan 50 mg-hydrochlorothiazide 1 tab PO DAILY 07/2702/28/25 12.5 mg tablet ropinirole 1 mg tablet 1 mg PO HS 02/28/25 02/28/25 Previous Rx's ?Medication ?Instructions ?Recorded diclofenac sodium 75 mg 75 mg PO BID #60 tabs tablet,delayed release Allergies Allergy/AdvReac Type Severity Reaction Status Date / Time aspirin AdvReac Intermediate Verified 10/12/22 14:20 [facility] Disclaimer: The information contained in this section may have been updated after the patient was seen, as this information can be updated by other users. Medical History Anemia Hyperlipidemia Hypertension Hypothyroidism Malignant melanoma of left shoulder Osteoporosis Thyroid disease Thyroid tumor, benign Surgical History History of colonoscopy History of lobectomy of thyroid Previous back surgery Family History Other Coronary artery disease Hypertension Stroke Social History (Updated 10/24/22 @ 00:27 by Venita Zee RN) Smoking Status: Unknown if ever smoked alcohol intake: never substance use type: denies use current occupational status: other Travel in the last 8 weeks?: None household members: spouse housing: house caffeine: Yes Other Medical History Have you received the Flu Vaccine for this season: No Have you received the Pneumonia Vaccine: No ROS Obtained: Yes All systems reviewed & no additional complaints except as documented Physical Exam General General appearance: alert and in no apparent distress Head Head exam: atraumatic and normocephalic Eye Eye exam: Present normal appearance, PERRL and EOMI ENT ENT exam: Present normal oropharynx and normal external ear exam Neck Neck exam: Present normal inspection and full ROM Chest Chest inspection: Present normal inspection and symmetric chest wall rise; Absent tenderness Respiratory Respiratory exam: Present normal lung sounds bilaterally; Absent respiratory distress Cardiovascular Cardiovascular exam: Present regular rate and normal rhythm Abdominal Exam Abdominal exam: Present soft; Absent distention, tenderness or guarding Extremities Exam Extremities exam: Present normal inspection; Absent edema or joint swelling Back Exam Back exam: Present normal inspection; Absent tenderness Neurological Exam Neurological exam: Present alert and oriented X3; Absent motor sensory deficit Psychiatric Psychiatric exam: Present normal affect and normal mood Skin Skin exam: Present warm, dry and normal color Lymphatic Lymphatic Findings: no adenopathy Medical Decision Making Medical Records Medical records reviewed: Yes I reviewed the patient's medical records. Screening: Per USPSTF and CDC recommendations, given the prevalence of disease in our region, it is our hospital?s policy to screen for HIV and viral Hepatitis for all patients aged 18 and over and those with ongoing risk factors. Gonzales Inquiry Pt receiving controlled substance: No Gonzales was queried for this patient: No Vital Signs: 02/27/25 23:31 02/27/25 23:55 02/27/25 23:59 Temperature 97.8 F Temperature Source Axillary Pulse Rate 54 L 53 L Pulse Rate [Left] 61 Respiratory Rate 18 15 12 Blood Pressure 73/54 L 80/43 L Blood Pressure [Right Arm] 71/44 L Blood Pressure Mean 58 59 Blood Pressure Mean [Right Arm] 53 Blood Pressure Source Blood Pressure Source [Right Arm] Automatic Cuff Blood Pressure Position Blood Pressure Position [Right Arm] Supine 02 Sat by Pulse Oximetry 96 99 96 Oxygen Delivery Method Room Air 02/28/25 00:07 02/28/25 00:30 02/28/25 00:49 Temperature Temperature Source Pulse Rate 62 65 64 Pulse Rate [Left] Respiratory Rate 12 16 18 Blood Pressure 93/49 L 89/52 L 85/68 L Blood Pressure [Right Arm] Blood Pressure Mean 54 64 70 Blood Pressure Mean [Right Arm] Blood Pressure Source Blood Pressure Source [Right Arm] Blood Pressure Position Blood Pressure Position [Right Arm] 02 Sat by Pulse Oximetry 98 96 100 Oxygen Delivery Method Room Air 02/28/25 00:57 Temperature 97.8 F Temperature Source Oral Pulse Rate 60 Pulse Rate [Left] Respiratory Rate 16 Blood Pressure 85/68 L Blood Pressure [Right Arm] Blood Pressure Mean Blood Pressure Mean [Right Arm] Blood Pressure Source Automatic Cuff Blood Pressure Source [Right Arm] Blood Pressure Position Supine Blood Pressure Position [Right Arm] 02 Sat by Pulse Oximetry Oxygen Delivery Method Room Air Lab Data Lab results reviewed: Yes I reviewed the patient's lab results. Lab Results 02/27/25 23:36: SARS-CoV-2 (PCR) Detected A, Influenza A Untype (PCR) Not detected, Influenza Type B (PCR) Not detected 02/27/25 23:45: WBC 5.4, RBC 3.67 L, Hgb 10.2 L, Hct 30.2 L, MCV 82.3, MCH 27.8, MCHC 33.8, RDW 15.2, Plt Count 174, MPV 12.7 H, Neut % (Auto) 61.9, Lymph % (Auto) 22.1, Gove % (Auto) 10.1 H, Eos % (Auto) 4.6, Baso % (Auto) 1.1, Neut # (Auto) 3.4, Lymph # (Auto) 1.2, Gove # (Auto) 0.6, Eos # (Auto) 0.3, Baso # (Auto) 0.1, VBG pH 7.36, VBG pCO2 50.3, VBG pO2 29.2, VBG HCO3 27.8, VBG Total CO2 29.3 H, VBG O2 Saturation 51.3, VBG Base Excess 2.3, VBG Lactic Acid 2.9 H, Sodium 125 L, Potassium 3.9, Chloride 95 L, Carbon Dioxide 26, Anion Gap 7.9, B UN 90 H, Creatinine 1.00 D, Estimated Creat Clear 46, Estimated GFR 54 L, Est GFR ( Amer) 65 D, Glucose 88, Calcium 8.1 L, Magnesium 1.6, Total Bilirubin 1.3, AST 28, ALT 11 L, Alkaline Phosphatase 205 H, Troponin I 0.01, T otal Protein 5.0 L, Albumin 2.6 L, Globulin 2.4, Albumin/Globulin Ratio 1.1, TSH 1.33, Thyroxine (T4) 3.7 L 02/28/25 00:13: Urine Sodium 27.0 L 02/28/25 00:15: Urine Color Yellow, Urine Appearance Clear, Urine pH 5.5, Ur Specific [place] 1.015, Urine Protein Negative, Urine Glucose (UA) Negative, Urine Ketones Negative, Urine Blood Negative, Urine Nitrate Negative, Urine Bilirubin Negative, Urine Urobilinogen 0.2, Ur Leukocyte Esterase Negative, Urine RBC 3-5, Urine WBC 3-5, Ur Squamous Epith Cells Occasional, Urine Bacteria Trace 02/27/25 23:45 02/28/25 01:21 Orders (Tests/Meds): ED MEDICATIONS Generic Name Dose Route Start Last Admin Trade Name Freq PRN Reason Stop Dose Admin Acetaminophen 650 mg 02/28/25 00:49 Acetaminophen 325mg Tab PO 03/30/25 00:48 Q6HP PRN Fever or Mild Pain (1-3) Docusate Sodium ml 02/28/25 09:00 Docusate Sodium 10 Ml/Udc Udc PO 03/30/25 08:59 BID KWABENA Enoxaparin Sodium 40 mg 02/28/25 09:00 Enoxaparin 40mg/0.4ml Syringe SUBCUT 03/30/25 08:59 DAILY KWABENA Dopamine HCl/Dextrose 250 mls @ 5.834 mls/hr 02/28/25 00:38 Dopamine 400mg/250ml D5w IV 03/30/25 00:37 .Q24H KWABENA Protocol 2.5 MCG/KG/MIN Albumin Human 12.5 gm in 50 mls @ 100 mls/hr 02/28/25 00:50 Albumin 25% (12.5gm) Soln 50ml Bag IV 02/28/25 01:49 Q30M KWABENA Sodium Chloride 1,000 mls @ 100 mls/hr 02/28/25 01:00 Sod Chlor 0.9% 1000ml Bag IV 03/30/25 00:59 .Q10H KWABENA Ondansetron HCl 4 mg 02/28/25 00:49 Ondansetron 4mg/2ml Vial IV 03/30/25 00:48 Q6HP PRN Nausea Sennosides 17.2 mg 02/28/25 21:00 Senna 8.6mg Tablet PO 03/30/25 20:59 HS KWABENA Discontinued Medications Generic Name Dose Route Start Last Admin Trade Name Cherelle PRN Reason Stop Dose Admin Sodium Chloride 1,000 mls @ 999 mls/hr 02/27/25 23:30 02/28/25 00:05 Sod Chlor 0.9% 1000ml Bag IV 02/28/25 00:30 999 mls/hr .Q1H1M KWABENA Administration Sodium Chloride 1,000 mls @ 999 mls/hr 02/28/25 00:30 02/28/25 00:24 Sod Chlor 0.9% 1000ml Bag IV 02/28/25 01:30 999 mls/hr .Q1H1M KWABENA Administration ORDERS Category Date Time Status CXR --portable [XR chest portable] Stat Exams 02/27/25 23:30 Completed CBC w/Auto Diff [Complete Blood Count Auto Diff] Stat Lab 02/27/25 23:45 Completed CMP [Comprehensive Metabolic Panel] Stat Lab 02/27/25 23:45 Completed Cortisol,AM Routine Lab 02/28/25 06:00 Ordered Magnesium Stat Lab 02/27/25 23:45 Completed Rapid PCR Covid and Flu A/B Stat Lab 02/27/25 23:36 Completed Sodium Stat Lab 02/28/25 03:00 Ordered Sodium,Urine Random Routine Lab 02/28/25 00:13 Completed T4 (Thyroxine) Stat Lab 02/27/25 23:45 Completed TSH [Thyroid Stimulating Hormone] Stat Lab 02/27/25 23:45 Completed Troponin I Q3H Lab 02/27/25 23:45 Completed Troponin I Q3H Lab 02/28/25 02:45 Ordered UA [Urinalysis and Microscopic] Stat Lab 02/28/25 00:15 Completed Blood Culture Stat Micro 02/27/25 23:45 Received VBG [Venous Blood Gas] Stat RT 02/27/25 23:45 Completed ECG Data Tracing #1: I reviewed this ECG and interpreted as documented below: Sinus bradycardia, ventricular rate of 58, no ischemic change ECG initial impression date: 02/27/25 ECG initial impression time: 23:56 Medical Decision Narrative: 79-year-old female presents for hypotension and mild confusion from [place] [facility]. Recently treated for UTI.. History was obtained via interactive discussion with patient, EMS, chart. On arrival, patient is afebrile, sinus bradycardia with rates between 50 and 65, hypotensive with systolics in the 70s. Patient is generally alert, well-appearing and interactive. Clear lungs, no abdominal tenderness, no reported trauma. No fever. She denies any acute complaints and is not sure why she was made to come here. Differential includes but is not limited to septic shock, hypovolemic shock, cardiogenic shock. Patient has no source of bleeding. Her mucous membranes are dry. Patient was given 2 L IV fluid bolus with return of normal blood pressure. Workup initiated including broad-spectrum labs, blood cultures, urine, chest x- ray. On re-evaluation, patient remains afebrile, interactive, blood pressure improved. We had to switch the cuff to the leg and the blood pressure is reading significantly lower. This may be inaccurate. Laboratory workup independently interpreted by me and significant for significant azotemia with BUN of 90, creatinine normal. Chronic hyponatremia noted. Urinalysis does not appear consistent with infection. Imaging independently interpreted by me and significant for clear lungs bilaterally. See radiology read for full review of final results. EKG independently interpreted by me and significant for sinus bradycardia. Given patient history, exam and workup, patient's presentation most likely represents hypotension and azotemia, possibly from dehydration, no obvious source. I considered initiating antibiotics but given patient is afebrile and does not have a source, has no leukocytosis, blood is improved after fluids, I will hold off at this time. Interactive discussion was had with hospitalist on- call for admission. Procedures Risk/Benefits of Procedure(s) Were Explained: Yes Critical Care Critical Care Time Critical Care Time: No
--- OUTSIDE RECORDS SUMMARY | 2025-02-27 23:54 | XMS_ITS | Clinical Summary ---
Author Organization [facility] Address [address] [place] [address] Care Team Providers Care Currency Machine Operator Name Role Phone Elijah Cota MD Primary Care Provider [phone] Allergies Active Allergy Reactions Criticality Noted Date [...] for 30 minutes after Active HYDROcodone-chandni taminophen (Sanders) 5-325 MG tablet Take 1 tablet (5 mg of hydrocodone) by mouth every 12 (twelve) hours if needed for moderate pain. Active Wound Dressings ([facility] WOUND [facility]BURN DRESS[facility] EX) Apply topically 1 [...] (06/01/2021): Added automatically from request for surgery [id number] HTN (hypertension) 05/12/2021 Hypothyroidism 05/12/2021 Gastroesophageal reflux disease 05/12/2021 Elbow fracture, left, closed, initial encounter 04/02/2021 Resolved Problems Problem Noted Date Diagnosed Date Resolved Date DJD (degenerative joint disease) 10/26/2022 12/23/2024 Hardware complicating wound infection 05/26/2021 10/14/2023 Exposed orthopaedic hardware 05/26/2021 06/03/2021 Overview (06/01/2021): Added automatically from request for surgery [id number] Fall 05/12/2021 05/18/2021 Arthritis 05/12/2021 12/16/2024 Exposed orthopaedic hardware 05/11/2021 06/01/2021 Overview (05/12/2021): Added automatically from request for surgery [id number] Elbow pain, left 03/31/2021 10/14/2023 Overview (03/31/2021): Added automatically from request for surgery [id number] Immunizations Immunization Administration Dates Next Due Influenza, [...] and Family Not on file 10/13/2023 Attends Jainism Services Not on file 10/12 Active Member [...] place to sleep or slept in a residential (including now)? No 10/13/2023 CAGE ASSESSMENT Answer [...] drink first t michelle in the morning (EYE-FLAT FOLDING MACHINE OPERATOR) to steady your nerves or to get rid of a hangover? 0 10/11/2023 CAGE Questionnaire Score 0 024 Utilities Answer Date Recorded In the past 12 months has th Indicative Software, gas, oil, or water company threatened to [...] 75+ series) 2021 [facility]-Depression Screening 06/20/2024 06/21/2023 [id number] Vaccine (3 - season) 2024 01/28/2021, 06/03/2020 [...] this topic Medical Devices Implanted Type Area Template Maker Device Identifier Shelf Expiration Date Model / Serial / Lot Screw 3.5mm Pericortical 2.7mm Hd Selftap 56mm - [id number] Implanted:Qty: 1 on 04/02/2021 by Samuel Aquino MD at [facility] Screw Left: Elbow [employer] Inc-[id number] 04/01/2022 [id number] / / Screw 6.5mm Cannulated 32mm Thrd/100mm - S. - [id number] Implanted:Qty: 1 on 05/27/2021 by Ulices Galvez MD at [facility] Screw Left: Elbow [employer] [place]-[id number] 05/27/2022 [id number] / . / Washer 13mm Lg - S. - [id number] Implanted:Qty: 1 on 05/27/2021 by Ulices Galvez MD at [facility] Washer Left: Elbow [employer] [place]-[id number] 05/27/2022 219.99 / . / Wire Threaded Tip K 1.6 Mm - [id number] Implanted:Qty: 1 on 04/02/2021 by Samuel Aquino MD at [facility] Wire Left: Elbow Miss[employer] Inc-[id number] 04/01/2022 [id number] / / Rods/Screws N/A: Back Screw 2.5mm Peg 20mm - [id number] Implanted:Qty: 2 on 04/02/2021 by Samuel Aquino MD at [facility] Left: Elbow [employer]-[id number] 04/02/2021 [id number] / / Screw 2.5mm Peg 22mm - [id number] Implanted:Qty: 2 on 04/02/2021 by Samuel Aquino MD at [facility] Left: Elbow [employer]-[id number] 04/02/2021 [id number] / / Dist Hum Med Lt 13hole 127mm - [id number] Implanted:Qty: 1 on 04/02/2021 by Samuel Aquino MD at [facility] Left: Elbow [employer] Inc-[id number] 04/02/2021 [id number] / / Screw 2.7mm Cortical Locking 50mm - [id number] Implanted:Qty: 2 on 04/02/2021 by Samuel Aquino MD at [facility] Left: Elbow [employer]-04/02/2021 [id number] / / Screw 3.5mm Cortical Solid Ft 24mm - [id number] Implanted:Qty: 1 on 04/02/2021 by Samuel Aquino MD at [facility] Left: Elbow [employer]-[id number] 04/02/2021 [id number] / / Screw 3.5mm Cortical Solid Ft 22mm - [id number] Implanted:Qty: 2 on 04/02/2021 by Samuel Aquino MD at [facility] Left: Elbow [employer] Inc-[id number] 04/02/2021 [id number] / / Screw 3.5mm Cortical Solid Ft 30mm - [id number] Implanted:Qty: 1 on 04/02/2021 by Samuel Aquino MD at [facility] Left: Elbow [employer]-[id number] 04/02/2021 [id number] / / Shanda Joseph Fast Set 10cc - [id number] Implanted:Qty: 1 on 04/02/2021 by Samuel Aquino MD at [facility] Left: Elbow [employer] [place]-[id number] 08/22/2021 [id number] / / Plate Prox Lloyd Ulna 4h Lt - [id number] Implanted:Qty: 1 on 04/02/2021 by Samuel Aquino MD at [facility] Left: Elbow [employer] Inc-[id number] 04/02/2021 [id number] / / Screw 3.5mm Periart 2.7mm Head Selftap 20mm - [id number] Implanted:Qty: 1 on 04/02/2021 by Samuel Aquino MD at [facility] Left: Elbow [employer] Inc-[id number] 04/02/2021 [id number] / / Screw 3.5mm Periart 2.7mm Head Selftap 24mm - [id number] Implanted:Qty: 1 on 04/02/2021 by Samuel Aquino MD at [facility] Left: Elbow [employer] Inc-[id number] 04/02/2021 [id number] / / Screw 3.5mm Periart 2.7mm Head Selftap 18mm - [id number] Implanted:Qty: 1 on 04/02/2021 by Samuel Aquino MD at [facility] Left: Elbow [employer] Inc-[id number] 04/02/2021 [id number] / / Screw 3.5mm Periart 2.7mm Head Selftap 44mm - [id number] Implanted:Qty: 1 on 04/02/2021 by Samuel Aquino MD at [facility] Left: Elbow [employer]-[id number] 04/02/2021 [id number] / / Screw 3.5mm Periart 2.7mm Head Selftap 110mm - [id number] Implanted:Qty: 1 on 04/02/2021 by Samuel Aquino MD at [facility] Left: Elbow [employer] Inc-[id number] 04/02/2021 [id number] / / Screw 2.7mm Cortical Small Hex Selftap 60mm - [id number] Implanted:Qty: 1 on 04/02/2021 by Samuel Aquino MD at [facility] Left: Elbow [employer] Inc-[id number] 04/02/2021 [id number] / / Cement Palacos Lv W Gent - [id number] Implanted:Qty: 2 on 12/21/2022 by Deshawn Miller MD at [facility] Left: Knee [employer]ae[employer] Inc-[id number] 11/26/2023 [id number] / / [id number] Cement Palacos Lv W Gent - [id number] Implanted:Qty: 4 on 12/21/2022 by Deshawn Miller MD at [facility] Left: Knee [employer] Inc-[id number] 05/26/2023 [id number] / / [id number] Cement Palacos Mv - [id number] Implanted:Qty: 1 on 12/21/2022 by Deshawn Miller MD at [facility] Left: Knee [employer] Inc-[id number] 03/27/2027 [id number] / / [id number] Chg Base Leg Tib Hk Sz 2 Lt - [id number] Implanted:Qty: 1 on 12/21/2022 by Deshawn Miller MD at [facility] Left: Knee Buchanan [employer]hew [employer] Inc-[id number] 10/11/2031 [id number] / / [id number] Chg Stem Lgn [id number] - [id number] Implanted:Qty: 1 on 12/21/2022 by Deshawn Miller MD at [facility] Left: Knee [employer] Inc-[id number] 03/21/2027 [id number] / / [id number] Chg Stem Lgn [id number] - [id number] Implanted:Qty: 1 on 12/21/2022 by Deshawn Miller MD at [facility] Left: Knee [employer] Inc-[id number] 01/13/2030 [id number] / / [id number] Chg Base Leg Fem Hk Sz 4 Lt - [id number] Implanted:Qty: 1 on 12/21/2022 by Deshawn Miller MD at [facility] Left: Knee [employer] Inc-[id number] 09/08/2025 [id number] / / [id number] Chg Patella Gii Oval Resurfaci - [id number] Implanted:Qty: 1 on 12/21/2022 by Deshawn Miller MD at [facility] Left: Knee [employer] Inc-[id number] 09/21/2032 [id number] / / [id number] Chg Sleeve Legion Hnge 11mm Josh - [id number] Implanted:Qty: 1 on 12/21/2022 by Deshawn Miller MD at [facility] Left: Knee [employer] Inc-[id number] 04/27/2032 [id number] / / [id number] Chg Insert Lgn Hng Gd Mt 11mm - [id number] Implanted:Qty: 1 on 12/21/2022 by Deshawn Miller MD at [facility] Left: Knee [employer] Inc-[id number] 11/03/2031 [id number] / / [id number] Procedures Procedure Name Priority Date/Time Associated Diagnosis Comments HEPATITIS C ANTIBODY - ED W/REFLEX TO HCV QUANT PCR STAT 05/11/2021 9:50 PM EST from Last 3 Months or Most Recently Relevant to Health Maintenance Results * [place] Hepatitis C Antibody (05/11/2021 9:50 PM EST) Hepatitis C Antibody Negative Negative 05/11/2021 11:12 PM EST [facility] Blood Venous blood specimen / Unknown Venipuncture / Unknown 05/11/2021 9:50 PM EST 05/11/2021 9:59 PM EST us Mally Vital MD LAB BLOOD ORDERABLES Final Res ult [facility] [address] [place] [address] from Last 3 Months or Most Recently Relevant to Health Maintenance Insurance MEDICARE Member Subscriber Plan / Payer (Ef fective 2011-Present) Name:Britta Xiao Member ID:[id number] Relation to Subscriber:Self Name:Britta Xiao Subscriber ID:[id number] Payer ID:MEDICARE Group ID:Not on file Type:Medicare Address: [place] [phone] [facility] Advance Directives * Full Code (Latest [...] Patient has decision-making capacity? Yes Care Teams Currency Machine Operator Relationship Specialty Start Date End Date Elijah Cota MD [address] [place] [id number] PCP - General 03/26/21
--- OUTSIDE RECORDS SUMMARY | 2025-02-27 23:54 | XMS_ITS | Encounter Summary ---
Author Organization Healthcare Address [address] [place] [address] Care Team Providers Care Patient Financial Services Manager Name Role Phone Elijah Cota MD Primary Care Provider [phone] Reason for Visit * Auth/Cert Specialty Diagnoses / Procedures Referred By Contac t Referred To Contact Diagnoses Hardware complicating wound infection, sequela Jaden Cantrell MD [address] [facility] [address] [place] [address] Phone: tel: fax: [facility] [address] [place] [address] Phone: tel: Referral ID Status Reason Start Date Expiration Date Visits Re quested Visits Authorized [id number] 1 1 Encounter Details Date Type Department Care Team (Late st Contact Info) Description 06/04/2021 Lab Requisition [facility] [address] [place] [address] Steve Hurtado MD [address] [facility] [address] [place] [address] Osteomyelitis, unspecified (CMS/HCC) Social History [...] Final Re sult [facility] [address] [place] [address] documented in this encounter Visit Diagnoses Diagnosis Osteomyelitis, unspecified (CMS/HCC) documented in this encounter Additional Health Concerns Assessment Noted Time A fall risk assessment has been complete d for the patient 05/26/2021 8:30 AM EST documented as of this encounter Care Teams Patient Financial Services Manager Relationship Specialty Start Date End Date Elijah Cota MD [address] [place] [address] PCP - General 03/26/21 documented as of this encounter
[2025-02-27 23:55] VITALS: BP 73/54; PULSE 54; RESP 15; O2SAT 99
[2025-02-27 23:55] LABS: Influenza A, PCR Not Detected (NotDetected); Influenza B, PCR Not Detected (NotDetected)
--- NOTE | 2025-02-27 23:56 | ECG_ITS ---
APPROVED REPORT Exam: Resting ECG HR:58 bpm ECG Measurements Heart Rate 58 AXES OR 200 P 72 QRSd 82 QRS 10 QT 438 T 59 QTc 435 Conclusion SINUS BRADYCARDIA BORDERLINE ECG UNCONFIRMED REPORT Electronically signed by : MÓNICA HYDE, 02/28/2025 04:59:37
[2025-02-27 23:57] LABS: Hematocrit 30.2 % (37.0-47.0); Hemoglobin 10.2 g/dL (12.2-16.2); Immature Granulocytes % 0.2 %; Mean Corpuscular HGB Conc 33.8 g/dL (31.8-35.4); Mean Corpuscular Hemoglobin 27.8 pg (27.0-31.2); Mean Corpuscular Volume 82.3 fl (81-99); Nucleated Red Blood Cells % 0.7 %; Platelet Count 174 K/mm3 (142-424); Red Blood Count 3.67 M/mm3 (4.20-5.40); Red Cell Distribution Width-SD 45.2 fL; White Blood Count 5.4 K/mm3 (4.8-10.8)
[2025-02-27 23:59] VITALS: BP 80/43; PULSE 53; RESP 12; O2SAT 96
[2025-02-27 23:59] LABS: VBG HCO3 27.8 mmol/L (23-30); VBG PH 7.36 mmol/L (7.31-7.41); VBG PO2 29.2 mmol/L (28-40)
[2025-02-28] VITALS (17 sets, daily range): BP systolic 85–142; BP diastolic 49–95; PULSE 57–83; RESP 10–18; TEMP 36.3–36.8; O2SAT 90–100; BMI 24.4
[2025-02-28 00:01] LABS: Lactate Venous 2.9 mmol/L (0.4-2.0); VBG PCO2 50.3 mmol/L (35-51)
[2025-02-28] MEDS: 0.9 % SODIUM CHLORIDE 1000ML 1,000 ML 999 ML IV ×2 (00:05→00:24)
[2025-02-28 00:08] LABS: Alanine Aminotransferase 11 U/L (12-78); Albumin Level 2.6 g/dl (3.5-5.0); Albumin/Globulin Ratio 1.1 (1.1-1.8); Alkaline Phosphatase 205 U/L (38-126); Anion Gap 7.9 mEq/L (5-15); Aspartate Amino Transferase 28 U/L (14-36); Bilirubin,Total 1.3 mg/dl (0.2-1.3); Calcium 8.1 mg/dl (8.4-10.2); Carbon Dioxide 26 mmol/L (22.0-30.0); Chloride 95 mmol/L (98-107); Creatinine Clearance Estimated 46 mL/min (50-200); Creatinine,Serum 1.00 mg/dl (0.52-1.04); Estimated Glomerular Filt Rate 54 ml/min (>60); GFR (African American) 65 ML/MIN (>60); Globulin 2.4 g/dL (1.3-3.2); Glucose 88 mg/dl (74-100); Magnesium 1.6 mg/dl (1.6-2.3); Potassium 3.9 mmoL/L (3.5-5.1); Sodium 125 mmol/L (136-145); Total Protein,Serum 5.0 g/dl (6.3-8.2)
[2025-02-28 00:10] LABS: Blood Urea Nitrogen 90 mg/dl (7-17)
[2025-02-28 00:19] LABS: Microscopic, Urine URINE MICROSCOPIC (MICROSCOPIC)
[2025-02-28 00:20] LABS: Troponin I 0.01 ng/ml (0.00-0.034)
[2025-02-28 00:21] LABS: Bilirubin,Urine Negative (Negative); Color,Urine YELLOW (Yellow); Glucose,Urine (UA) Negative (Negative); Ketones,Urine Negative (Negative); Leukocyte Esterase,Urine Negative (Negative); PH,Urine 5.5 (5.0-8.5); Protein,Urine Negative (Negative); Specific Gravity, Urine 1.015 (1.005-1.030); Urobilinogen,Urine 0.2 EU/dl (0.2)
[2025-02-28 00:25] LABS: T4 (Thyroxine) 3.7 ug/dl (5.53-11.0)
[2025-02-28 00:30] LABS: Squamous Epithelial Cell,Urine Occasional #/hpf (0-5)
[2025-02-28 00:31] LABS: Bacteria,Urine Trace /lpf
[2025-02-28 00:38] LABS: Thyroid Stimulating Hormone 1.33 uIU/mL (0.465-4.68)
[2025-02-28 00:53] LABS: Coronavirus 19, PCR Detected (NotDetected)
--- NOTE | 2025-02-28 00:57 | P.HP_ITS ---
<Statement entered by Miguel Sorto MD - 03/05/25 15:52> Agree with plan of care as outlined by the [facility]. History of Present Illness *Admission Date: 02/28/25 *Reason for visit:: Low blood pressure *History of present illness: This is a 79-year-old female who has a past medical history significant for malignant melanoma of the left shoulder, benign thyroid tumor, hypothyroidism, anemia, osteoporosis, hypertension, and hyperlipidemia who presents from her nursing facility with increased confusion and hypotension. Due to patient's symptoms, she presented to the emergency room for evaluation. While in the emergency room, patient's systolic blood pressure was in the 70s. She was given a 2 L bolus and her systolic blood pressure did improve to the 80s and her mean arterial pressure improved to the the 64. Due to persistent hypotension of unknown origin, hospital medicine was consulted for further management. During my evaluation of the patient, she was pleasant able to answer questions however she was confused. 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 She states that she is prescribed lisinopril and has been taking this for some time. Review of patient's EMR shows she is prescribed hydrochlorothiazide, labetalol, and losartan for management of hypertension. Patient does have a left upper extremity contracture. Reportedly, patient's systolic blood pressure at the correction was in the 60s. I am unsure if patient's objective findings would be reliable however she is denying any lightheadedness, dizziness, chest pain, shortness of breath, dyspnea, PND, blurred vision, double vision, headache, or diarrhea. Chest x-ray obtained and shows no consolidations subsegmental atelectasis versus scarring of the left lung base. Additional pertinent labs obtained include a red blood cell count of 3.67, hemoglobin 10.2, hematocrit 30.2, sodium 125, chloride of 95, BUN of 90, GFR of 54, calcium 8.1, ALT 11, alkaline phosphate of 205, total protein of 5, albumin of 2.6, and urinalysis was unremarkable. [facility] Disclaimer: The information contained in this section may have been updated after the patient was seen, as this information can be updated by other users. Medical History Anemia Hyperlipidemia Hypertension Hypothyroidism Malignant melanoma of left shoulder Osteoporosis Thyroid disease Thyroid tumor, benign Surgical History History of colonoscopy History of lobectomy of thyroid Previous back surgery Family History Other Coronary artery disease Hypertension Stroke Social History (Updated 10/24/22 @ 00:27 by Venita Zee RN) Smoking Status: Never smoker alcohol intake: never substance use type: denies use current occupational status: other Travel in the last 8 weeks?: None household members: spouse housing: house caffeine: Yes Other Medical History Have you received the Flu Vaccine for this season: No Have you received the Pneumonia Vaccine: No Review of Systems Review of Systems Review of systems:: other (Patient has some underlying encephalopathy/chronic confusion) Meds Home Medications and Allergies Home Medications ?Medication ?Instructions ?Recorded ?Confirmed ?Type atorvastatin 40 mg tablet (Lipitor) 40 mg PO DAILY Cho lesterol 01/23/18 10/24/22 History temazepam 30 mg capsule 30 mg PO HSP PRN Sleep 01/2310/24/22 History celecoxib 100 mg capsule 100 mg PO DAILY Pain 2 10/24/22 History omeprazole 20 mg capsule,delayed 20 mg PO DAILY Acid R eflux 12/01/21 10/24/22 History release propranolol 10 mg tablet 10 mg PO TID High Blood Pres sure 12/01/21 10/24/22 History diclofenac sodium 75 mg 75 mg PO BID #60 tabs 10/24/22 Rx tablet,delayed release aripiprazole 5 mg tablet 5 mg PO BID Mood 10/24/22 History carbidopa 25 mg-levodopa 250 mg 1 tab PO TID Parkinson s 10/24/22 10/24/22 Histor y tablet escitalopram oxalate 20 mg tablet 20 mg PO DAILY Mood 10/24/22 10/24/22 History levothyroxine 50 mcg tablet 50 mcg PO DAILY thyroid 10/24/22 History mirtazapine 7.5 mg tablet 7.5 mg PO HS Mood 10/24/22 0 10/24/22 History polyethylene glycol 3350 17 gram 17 g PO DAILY Constip ation 10/24/22 10/24/22 History oral powder packet trazodone 50 mg tablet 50 mg PO HS Sleep 10/24/22 0 10/24/22 History losartan 50 mg-hydrochlorothiazide 1 tab PO DAILY 07/27 04/20 History 12.5 mg tablet ropinirole 1 mg tablet 1 mg PO HS 02/28/25 02/28/25 History New Prescriptions to Start Prescriptions: Allergies Allergy/AdvReac Type Severity Reaction Status Date / Time aspirin AdvReac Intermediate Verified 10/12/22 14:20 Exam Data for Last 24 hours Vital signs and Labs for Last 24 Hours: Temp Pulse Resp BP Pulse Ox O2 Del Method 97.8 F 64 18 85/68 L 100 Room Air 02/27/25 23:31 02/28/25 00:49 02/28/25 00:49 02/28/25 00:49 02/28/25 00:49 02/28/25 00:49 Laboratory Results - last 24 hr 02/27/25 23:36: SARS-CoV-2 (PCR) Detected A, Influenza A Untype (PCR) Not detected, Influenza Type B (PCR) Not detected 02/27/25 23:45: WBC 5.4, RBC 3.67 L, Hgb 10.2 L, Hct 30.2 L, MCV 82.3, MCH 27.8, MCHC 33.8, RDW 15.2, Plt Count 174, MPV 12.7 H, Neut % (Auto) 61.9, Lymph % (Auto) 22.1, Dubois % (Auto) 10.1 H, Eos % (Auto) 4.6, Baso % (Auto) 1.1, Neut # (Auto) 3.4, Lymph # (Auto) 1.2, Dubois # (Auto) 0.6, Eos # (Auto) 0.3, Baso # (Auto) 0.1, VBG pH 7.36, VBG pCO2 50.3, VBG pO2 29.2, VBG HCO3 27.8, VBG Total CO2 29.3 H, VBG O2 Saturation 51.3, VBG Base Excess 2.3, VBG Lactic Acid 2.9 H, Sodium 125 L, Potassium 3.9, Chloride 95 L, Carbon Dioxide 26, Anion Gap 7.9, BUN 90 H, Creatinine 1.00 D, Estimated Creat Clear 46, Estimated GFR 54 L, Est GFR ( Amer) 65 D, Glucose 88, Calcium 8.1 L, Magnesium 1.6, Total Bilirubin 1.3, AST 28, ALT 11 L, Alkaline Phosphatase 205 H, Troponin I 0.01, Total Protein 5.0 L, Albumin 2.6 L, Globulin 2.4, Albumin/Globulin Ratio 1.1, TSH 1.33, Thyroxine (T4) 3.7 L 02/28/25 00:15: Urine Color Yellow, Urine Appearance Clear, Urine pH 5.5, Ur Specific Higginson 1.015, Urine Protein Negative, Urine Glucose (UA) Negative, Urine Ketones Negative, Urine Blood Negative, Urine Nitrate Negative, Urine Bilirubin Negative, Urine Urobilinogen 0.2, Ur Leukocyte Esterase Negative, Urine RBC 3-5, Urine WBC 3-5, Ur Squamous Epith Cells Occasional, Urine Bacteria Trace I & O for Last 24 hours: Intake & Output 02/25/25 02/26/25 02/27/25 02/28/25 23:59 23:59 23:59 23:59 Weight 62.233 kg Constitutional Constitutional: no acute distress, mild distress and cooperative *Routine HEENT Exam Head: Present normocephalic and atraumatic Eye: Present EOMI and PERRL ENT: Present mucous membranes dry *Routine Neck Exam Neck: Present supple, full ROM and trachea midline *Routine Respiratory Exam Respiratory: Present CTA bilaterally, normal respiratory effort, able to speak in complete sentences and symmetric chest movement *Routine Cardiovascular Exam Cardiovascular: Present RRR, Normal S1, Normal S2 and bradycardia *Routine Abdominal Exam Abdominal: Present soft and normoactive bowel sounds *Routine Rectal Exam Rectal:: deferred *Routine Genitalia Exam Genitalia:: deferred *Routine Extremities Exam Extremities: Present pulses intact and normal capillary refill Comments: Left upper extremity has contracture *Routine Skin Exam Skin: Present dry, warm and cracked *Routine Neurological Exam Neurological: Present alert, CN II-XII intact, altered mental status and normal speech Routine Psychiatric Exam Psychiatric: Present normal affect, normal thought process, cooperative, good insight and good judgment H&P: Result Impressions 79-year-old female presents from correction with hypotension of unknown origin may be medication induced. Patient does have some confusion unsure of patient's baseline mentation Assessment and Plan *Assessment and plan (1) Hypotension: Status: Acute Qualifiers: Hypotension type: unspecified hypotension type Qualified Code(s): I95.9 - Hypotension, unspecified Category: Medical Code(s): I95.9 - Hypotension, unspecified (2) Sinus bradycardia: Status: Acute Category: Medical Code(s): R00.1 - Bradycardia, unspecified (3) Altered mental status: Status: Acute Qualifiers: Altered mental status type: unspecified Qualified Code(s): R41.82 - Altered mental status, unspecified Category: Medical Code(s): R41.82 - Altered mental status, unspecified (4) Hyponatremia: Status: Acute Category: Medical Code(s): E87.1 - Hypo-osmolality and hyponatremia (5) Elevated liver enzymes: Status: Acute Category: Medical Code(s): R74.8 - Abnormal levels of other serum enzymes Plan Assessment: Hypotension Sinus bradycardia - Patient received 2 L normal saline while in the emergency room with some improvement of her systolic blood pressure - Will place patient in intensive care unit and continue to give patient gentle IV hydration - Will have dopamine on standby due to hypotension and bradycardia - EKG showing sinus rhythm, QTc of 435, normal axis no STEMI also no heart blocks - Will consider 2D echo - Will hold patient's antihypertensive medication - Give 25% albumin x 1 - Obtain cortisol level Hyponatremia - Patient does have some chronicity to her hyponatremia - Will give gentle IV hydration with normal saline at 100 mL an hour - Will monitor sodium closely and will not allow sodium to correct more than 6-8 mEq in a 24-hour time spent - Will check patient's sodium at 0300 hrs. and then every 4 hours - Obtain urine sodium Altered mental status versus baseline mentation - Is not clear what patient's baseline mental status is - Will consider CT scan of the head followed up by MRI of the brain - But again I believe this is patient's baseline mental status - Per ER provider, correction states that patient has baseline confusion but seems more confused than normal Elevated liver enzymes - Will monitor - May be in the setting of fatty liver Plan: Admit patient to the intensive care unit vice president for instruction SCD the bilateral lower extremity Vital signs every hour Consult case management Cardiac diet CBC/CMP daily Will continue to trend patient's troponin 40 mg Lovenox subcu daily for DVT prophylax 4 mg Zofran IV push every 6 hours as needed nausea and vomiting Blood cultures x 2 Patient was recently treated for urinary tract infection however current urinalysis is without any findings consistent with acute cystitis/urethritis Total critical care time 40 minutes I will discussed this case with attending physician Dr. Sorto and I look forward to more input
[2025-02-28 01:20] LABS: Sodium,Urine Random 27.0 mmol/L (30-90)
--- NOTE | 2025-02-28 01:27 | EXP.EVENT.NO ---
First began patient is positive for COVID and is nonhypoxic. Will consider dexamethasone and Paxlovid
[2025-02-28 01:36] LABS: Sodium 137 mmol/L (136-145)
[2025-02-28] MEDS: 0.9 % SODIUM CHLORIDE 1000ML 1,000 ML 100 ML IV (02:12)
[2025-02-28] MEDS: ALBUMIN HUMAN 12.5 GM/50 ML BAG IV ×2 (02:12→02:44)
[2025-02-28 02:17] LABS: Hepatitis C Ab Qual. W/ RFX NEGATIVE (Negative)
[2025-02-28] MEDS: ACETAMINOPHEN 325MG TAB 650 MG PO (02:50)
[2025-02-28 03:37] LABS: Sodium 136 mmol/L (136-145)
[2025-02-28 03:52] LABS: Troponin I 0.13 ng/ml (0.00-0.034)
[2025-02-28 03:59] LABS: Reflex Lactic Add Lactic Reflex
[2025-02-28] MEDS: DEXTROSE 5% IN WATER 250ML 250 ML IV (04:12)
[2025-02-28] MEDS: LACTATED RINGERS 1000ML 1,000 ML 100 ML IV ×2 (05:13→15:09)
[2025-02-28] MEDS: HYDROCODONE/APAP 5/325 MG TABLET 1 TAB PO ×2 (05:24→10:35)
[2025-02-28 06:34] LABS: Albumin Level 2.7 g/dl (3.5-5.0); Chloride 102 mmol/L (98-107); Lactic Acid Follow Up (RFLX 1) 2.0 mmol/L (0.7-2.1); Potassium 3.6 mmoL/L (3.5-5.1); Sodium 139 mmol/L (136-145)
[2025-02-28 06:37] LABS: Alanine Aminotransferase 13 U/L (12-78); Albumin/Globulin Ratio 1.3 (1.1-1.8); Alkaline Phosphatase 157 U/L (38-126); Anion Gap 17.6 mEq/L (5-15); Aspartate Amino Transferase 23 U/L (14-36); Bilirubin,Total 1.2 mg/dl (0.2-1.3); Blood Urea Nitrogen 72 mg/dl (7-17); Carbon Dioxide 23 mmol/L (22.0-30.0); Creatinine Clearance Estimated 41 mL/min (50-200); Creatinine,Serum 0.90 mg/dl (0.52-1.04); Estimated Glomerular Filt Rate 61 ml/min (>60); GFR (African American) 73 ML/MIN (>60); Globulin 2.1 g/dL (1.3-3.2); Total Protein,Serum 4.8 g/dl (6.3-8.2)
[2025-02-28 06:40] LABS: Hematocrit 25.9 % (37.0-47.0); Immature Granulocytes % 0.2 %; Mean Corpuscular HGB Conc 33.2 g/dL (31.8-35.4); Mean Corpuscular Hemoglobin 27.7 pg (27.0-31.2); Mean Corpuscular Volume 83.5 fl (81-99); Nucleated Red Blood Cells % 0.6 %; Platelet Count 129 K/mm3 (142-424); Red Blood Count 3.10 M/mm3 (4.20-5.40); Red Cell Distribution Width-SD 46.4 fL; White Blood Count 4.8 K/mm3 (4.8-10.8)
[2025-02-28 06:47] LABS: Hemoglobin 8.5 g/dL (12.2-16.2)
[2025-02-28 06:54] LABS: Calcium 7.3 mg/dl (8.4-10.2); Glucose 90 mg/dl (74-100)
--- NOTE | 2025-02-28 07:45 | CA_ITS ---
APPROVED REPORT EXAM: Comprehensive 2D, Doppler, and color-flow Echocardiogram Supply Chain Associate: Julisa Galarza CRT Ht: 4 ft 11 in Wt: 124lbs BSA: 1.50 BP: 85/69 mmHg Indications: Non STEMI, Hypertension/HDD, Covid positive Left arm folded and contracted and unable to move it. TDE difficult exam 2D Dimensions LA Volume 25.60 mL LA Volume Index 16.60 mL/m2 (M/F) 16-34 M-Mode Dimensions RVDd 1.99 cm (0.9-2.6) LA Diam 3.65 cm (1.9-4.0) LVDd 3.14 cm (3.5-5.7) LVDs 2.07 cm (3.5-5.7) IVSd 1.34 cm (0.6-1.1) PWd 0.46 cm (0.6-1.1) EF (Teich) 64.50% FS 34.10% EDV (Teich) 39.10 mL TAPSE 2.13 (<1.7) ESV (Teich) 13.90 mL LV Diastology E Decel Time 277 (160-240 msec) E/A Ratio 1.03 MED A' 11.00 cm/s LAT A' 9.00 cm/s Aortic Valve AO Peak GR. 5.00 mmHg Mitral Valve MV A Velocity 88.0 (40-130 cm/s) E/A Ratio 1.03 Pulmonary Valve PV Peak Velocity 62.0 (50-150 cm/s) Tricuspid Valve TR P. Velocity 261.00 cm/s RAP Estimate 10.00 mmHg RVSP 37.30 mmHg Left Ventricle The left ventricle is normal size. Left ventricular systolic function is normal. The left ventricular ejection fraction is within the normal range. There is increased left ventricular wall thickness. There is normal LV segmental wall motion. Transmitral Doppler flow pattern suggests impaired LV relaxation. LVEF is 60% Right Ventricle The right ventricle is mildly dilated. The right ventricular systolic function is normal. Atria Left atrium is mildly dilated. Right atrium is mildly dilated. There is no color Doppler evidence of interatrial shunt. Aortic Valve The aortic valve is mildly thickened. There is no hemodynamically significant aortic valvular stenosis. No aortic regurgitation is present. Mitral Valve The mitral valve is normal in structure. No evidence of mitral valve stenosis. Trace mitral regurgitation is present. Tricuspid Valve The tricuspid valve leaflets are thin and pliable. Trace tricuspid regurgitation. There is insufficient TR jet to estimate RVSP. Pulmonic Valve The pulmonary valve is grossly normal in structure. Trace pulmonic valve regurgitation is present. Great Vessels The aortic root is normal in size. IVC is normal in size and collapses >50% with inspiration. Pericardium There is no pericardial effusion. Other Information Study Quality: Technically Difficult Conclusion Normal biventricular systolic function. Mild RV dilation. Mild biatrial dilation. No significant valvular stenosis or regurgitation. Electronically signed by : Nataly Lr MD 02/28/2025 12:48:16
--- NOTE | 2025-02-28 07:55 | SW/DCPLANNER ---
Addendum entered by Cleo Cartagena 03/01/25 11:43: I have updated Camilla jon/ [facility] that patient will return [facility] level of care today. Original Note: Patient currently resides at [facility] level of care. Updated patient information has been faxed to Camilla jon/ [employer]. Discharge date is unknown at this time. CM will continue to follow up.
--- NOTE | 2025-02-28 08:13 | P.CONPHA_ITS ---
Pharmacy Intervention Comments: MEDICATION RECONCILIATION COMPLETED ON PATIENT USING MAR FROM [facility]. -DINESH COURTNEY, ALFONSOD
--- NOTE | 2025-02-28 08:13 | HMH.PHAINT1 ---
Pharmacy Intervention Comments: MEDICATION RECONCILIATION COMPLETED ON PATIENT USING MAR FROM [facility]. -DINESH COURTNEY, ALFONSOD
[2025-02-28] MEDS: ASPIRIN EC 81MG TABLET 81 MG PO (08:52)
[2025-02-28] MEDS: DOCUSATE SODIUM 10 ML/UDC UDC PO ×2 (08:52→20:00)
--- NOTE | 2025-02-28 09:59 | HMH.OTEV ---
OT Evaluation Rehab OT IP Evaluation Start: 02/28/25 08:00 Freq: ONCE Status: Active Protocol: Document 02/28/25 09:53 GILLIAN (Rec: 02/28/25 09:59 GILLIAN [id number]) Rehab OT IP Assessment Subjective History Per HPI: *History of present illness: This is a 79-year-old female who has a past medical history significant for malignant melanoma of the left shoulder, benign thyroid tumor, hypothyroidism , anemia, osteoporosis, hypertension, and hyperlipidemia who presents from her nursing facility with increased confusion and hypotension. Due to patient's symptoms, she presented to the emergency room for evaluation. While in the emergency room, patient' s systolic blood pressure was in the 70s. She was given a 2 L bolus and her systolic blood pressure did improve to the 80s and her mean arterial pressure improved to the the 64. Due to persistent hypotension of unknown origin, hospital medicine was consulted for further management. During my evaluation of the patient, she was pleasant able to answer questions however she was confused. 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 She states that she is prescribed lisinopril and has been taking this for some time. Review of patient's EMR shows she is prescribed hydrochlorothiazide, labetalol, and losartan for management of hypertension. Patient does have a left upper extremity contracture. Reportedly, patient's systolic blood pressure at the alf was in the 60s. I am unsure if patient's objective findings would be reliable however she is denying any lightheadedness, dizziness, chest pain, shortness of breath, dyspnea, PND, blurred vision, double vision, headache, or diarrhea. Chest x-ray obtained and shows no consolidations subsegmental atelectasis versus scarring of the left lung base. Additional pertinent labs obtained include a red blood cell count of 3.67, hemoglobin 10.2, hematocrit 30.2, sodium 125, chloride of 95, BUN of 90, GFR of 54, calcium 8.1, ALT 11, alkaline phosphate of 205, total protein of 5, albumin of 2.6, and urinalysis was unremarkable. Subjective I don't know. Pt supine in bed when therapy entered. Pt unable to orient to place, but able to orient to name. Pt agreed to OT eval. Pt agreed to sit on EOB. Pt went from supine to EOB MAX A x1. Pt able to tolerate sitting at EOB with MAX A x1 for 30 seconds. Pt then moved into supine position with Max A. Pt reported they use a w/c and have been using w/c for awhile. Pt reported they need assist for ADLs and IADLs . Pt left supine in bed with call light and all needs within reach. CM notified of pt and also upon further investigation, pt is Max A at baseline and altered mental status at baseline. Pt is able to self feed at [facility]. Pt used to complete FM with RW, however has not been using RW for FM for sometime. Objective Patient Orientation Person,Name Bed Mobility bed mobility-scooting,bed mobility - supine/sit Assist Level Maximum x 1 (75% assist) Decrease in Yes Endurance Rehab OT IP prob,goals,plan Problems Date of Evaluation: 02/28/25 Rehab Potential Rehab Potential Innapropriate for Skilled Therapy Discharge Plan OT Discharge Plan At this time, pt is at baseline in occupational performance and would not benefit from skilled acute OT services while admitted at [facility]. Once medically stable, pt is able to DC back to [facility]. Eval Complexity Eval Charge Codes 02104 - Moderate Complexity PHYSICIAN CERTIFICATION: I certify the specified therapy services for Britta Xiao are required, authorized, and reviewed every 30 days.
[2025-02-28 10:06] LABS: Sodium 137 mmol/L (136-145)
--- NOTE | 2025-02-28 10:32 | HMH.PTEV ---
Physical Therapy Evaluation Rehab PT IP Evaluation Start: 02/28/25 08:00 Freq: ONCE Status: Active Protocol: Document 02/28/25 10:28 MARY (Rec: 02/28/25 10:32 MARY [id number]) Subjective/History History History Per H&P: This is a 79-year-old female who has a past medical history significant for malignant melanoma of the left shoulder, benign thyroid tumor, hypothyroidism, anemia, osteoporosis, hypertension, and hyperlipidemia who presents from her nursing facility with increased confusion and hypotension. Due to patient's symptoms, she presented to the emergency room for evaluation. While in the emergency room, patient' s systolic blood pressure was in the 70s. She was given a 2 L bolus and her systolic blood pressure did improve to the 80s and her mean arterial pressure improved to the the 64. Due to persistent hypotension of unknown origin, hospital medicine was consulted for further management. During my evaluation of the patient, she was pleasant able to answer questions however she was confused. 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 She states that she is prescribed lisinopril and has been taking this for some time. Review of patient's EMR shows she is prescribed hydrochlorothiazide, labetalol, and losartan for management of hypertension. Patient does have a left upper extremity contracture. Reportedly, patient's systolic blood pressure at the detention was in the 60s. I am unsure if patient's objective findings would be reliable however she is denying any lightheadedness, dizziness, chest pain, shortness of breath, dyspnea, PND, blurred vision, double vision, headache, or diarrhea. Chest x-ray obtained and shows no consolidations subsegmental atelectasis versus scarring of the left lung base. Additional pertinent labs obtained include a red blood cell count of 3.67, hemoglobin 10.2, hematocrit 30.2, sodium 125, chloride of 95, BUN of 90, GFR of 54, calcium 8.1, ALT 11, alkaline phosphate of 205, total protein of 5, albumin of 2.6, and urinalysis was unremarkable. Subjective Subjective Pt is confused and is a questionable historian. Pt supine in bed when therapy entered. Pt unable to orient to place, but able to orient to name. Pt reported they use a w/c and have been using w/c for awhile. Pt reported they need assist for ADLs and IADLs. Pt is a Max A for mobility at baseline. New diagnosis of No cancer in past 12 months? [facility] How much help from another person do you currently need... Turning from your A lot back to your side while in a flat bed without using bedrails? Moving from lying on A lot back to sitting on the side of a flat bed without using bedrails? Moving to and from a A lot bed to a chair ( including a wheelchair)? Standing up from a A lot chair using your arms? (e.g., wheelchair, bedside chair) Walking in hospital Total room? Climbing 3-5 steps Total with a railing? Mobility Score 10 Mobility Level [facility] Mobility 4 Move to chair/commode Mobility Calculator Rehab PT IP Eval Objective Appearance Patient Behavior Appropriate,Confused Patient Orientation Person Difficulty following mild instructions Speech Pattern Patient Baseline Ambulation Patient Able to No Ambulate Balance Ability to Arise Unable Sitting Balance Leans or slides in chair Transfers Bed Transfer Ability Maximum x 2 (75% assist) Rehab PT IP prob,goals,plan Problems Date of Evaluation: 02/28/25 Rehab Potential Rehab Potential Innapropriate for Skilled Therapy Discharge Plan PT Discharge Plan Pt not appropriate for skilled acute care PT at this time d/t pt?s mobility being at baseline. Eval Complexity Eval Charge Codes 29881 - Moderate Complexity PHYSICIAN CERTIFICATION: I certify the specified therapy services for Britta Xiao are required, authorized, and reviewed every 30 days.
[2025-02-28] MEDS: PRO-STAT AWC 30ML LIQUID PACKET 30 ML PO ×2 (11:33→20:01)
--- NOTE | 2025-02-28 13:21 | EXP.CARD.CON ---
History of Present Illness History of Present Illness Consult date: 02/28/25 Requesting physician: Miguel Sorto Consult reason: shortness of breath Chief complaint: confusion, SOA Additional Medical History:: 1. Severe widespread osteoarthritis with mobility issues 2. Hypertension 3. Hyperlipidemia, on statin therapy 4. Hypothyroidism 5. Parkinsonism 6. History of malignant melanoma of the left shoulder 7. History of anemia History of present illness: This is a 79-year-old female who has a past medical history significant for malignant melanoma of the left shoulder, benign thyroid tumor, hypothyroidism, anemia, osteoporosis, hypertension, and hyperlipidemia who presents from her nursing facility with increased confusion and hypotension. Due to patient's symptoms, she presented to the emergency room for evaluation. While in the emergency room, patient's systolic blood pressure was in the 70s. She was given a 2 L bolus and her systolic blood pressure did improve to the 80s and her mean arterial pressure improved to the the 64. Due to persistent hypotension of unknown origin, hospital medicine was consulted for further management. During my evaluation of the patient, she was pleasant able to answer questions however she was confused. 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 She states that she is prescribed lisinopril and has been taking this for some time. Review of patient's EMR shows she is prescribed hydrochlorothiazide, labetalol, and losartan for management of hypertension. Patient does have a left upper extremity contracture. Reportedly, [facility] systolic [facility] pressure [facility] the [facility] was in the 60s. I am unsure if patient's objective findings would be reliable however she is denying any lightheadedness, dizziness, chest pain, shortness of breath, dyspnea, PND, blurred vision, double vision, headache, or diarrhea. Chest x-ray obtained and shows no consolidations subsegmental atelectasis versus scarring of the left lung base. Additional pertinent labs obtained include a red blood cell count of 3.67, hemoglobin 10.2, hematocrit 30.2, sodium 125, chloride of 95, BUN of 90, GFR of 54, calcium 8.1, ALT 11, alkaline phosphate of 205, total protein of 5, albumin of 2.6, and urinalysis was unremarkable. The above history per Vicente Irby APRN for the hospitalist service Patient was admitted with some altered mental status and still has some confusion. Her main complaint today is joint aches of the shoulder and hips. She denies any chest pain. Cardiology consulted for elevated troponin in the setting of COVID. Patient has no known prior history of coronary stenting or bypass. Review of her chart shows a cardiac CT in 2019 with a coronary artery calcium score of 32. There is no history of stress testing in our system. We have never seen her in our office. EKG shows sinus bradycardia 58 bpm. Initial troponin was normal but second troponin noted to be 0.13. Echocardiogram performed this morning preliminarily shows preserved ejection fraction. [facility] Disclaimer: The information contained in this section may have been updated after the patient was seen, as this information can be updated by other users. Medical History Anemia Hyperlipidemia Hypertension Hypothyroidism Malignant melanoma of left shoulder Osteoporosis Thyroid disease Thyroid tumor, benign Surgical History History of colonoscopy History of lobectomy of thyroid Previous back surgery Family History Other Coronary artery disease Hypertension Stroke Social History (Updated 02/28/25 @ 02:35 by Amanda Valladares RN) Smoking Status: Unknown if ever smoked alcohol intake: never substance use type: denies use current occupational status: other Travel in the last 8 weeks?: None household members: spouse housing: house caffeine: Yes Contact w/someone who lives/traveled outside [place] past 30 days?: No Exposure to someone with infectious disease in past 14 days?: No Do you have a fever (greater than 100.4 F or 38 C)?: No Have you tested positive for COVID-19?: Yes Exposed to someone with COVID-19 in past 14 days?: No Do you have a sore throat?: No Do you have a cough?: No Do you have any weakness?: Yes Are you experiencing any nausea/vomitting?: No Do you have any diarrhea?: No Are you experiencing any unusual bleeding?: No Do you have any muscle aches/pain?: No Do you have any abdominal pain?: No Are you experiencing loss of taste or smell?: No Review of Systems Review of Systems Review of systems:: pertinent systems reviewed and negative unless documented below *Cardiovascular Cardiovascular: Reports chest pain, Reports dyspnea and Reports dyspnea on exertion *Respiratory Respiratory: Reports dyspnea and Reports dyspnea on exertion *Neurologic Neurologic: Reports confusion Psychiatric Psychiatric: Reports confusion Exam Data for Last 24 hours Vital signs and Labs for Last 24 Hours: Temp Pulse Resp BP Pulse Ox O2 Del Method 97.5 F L 71 16 97/51 L 97 Room Air 02/28/25 12:01 02/28/25 12:01 02/28/25 12:01 02/28/25 12:01 02/28/25 12:01 02/28/25 12:01 Laboratory Results - last 24 hr 02/27/25 23:36: SARS-CoV-2 (PCR) Detected A, Influenza A Untype (PCR) Not detected, Influenza Type B (PCR) Not detected 02/27/25 23:45: WBC 5.4, RBC 3.67 L, Hgb 10.2 L, Hct 30.2 L, MCV 82.3, MCH 27.8, MCHC 33.8, RDW 15.2, Plt Count 174, MPV 12.7 H, Neut % (Auto) 61.9, Lymph % (Auto) 22.1, [place] % (Auto) 10.1 H, Eos % (Auto) 4.6, Baso % (Auto) 1.1, Neut # (Auto) 3.4, Lymph # (Auto) 1.2, [place] # (Auto) 0.6, Eos # (Auto) 0.3, Baso # (Auto) 0.1, VBG pH 7.36, VBG pCO2 50.3, VBG pO2 29.2, VBG HCO3 27.8, VBG Total CO2 29.3 H, VBG O2 Saturation 51.3, VBG Base Excess 2.3, VBG Lactic Acid 2.9 H, Sodium 125 L, Potassium 3.9, Chloride 95 L, Carbon Dioxide 26, Anion Gap 7.9, BUN 90 H, Creatinine 1.00 D, Estimated Creat Clear 46, Estimated GFR 54 L, Est GFR ( Amer) 65 D, Glucose 88, Calcium 8.1 L, Magnesium 1.6, Total Bilirubin 1.3, AST 28, ALT 11 L, Alkaline Phosphatase 205 H, Troponin I 0.01, Total Protein 5.0 L, Albumin 2.6 L, Globulin 2.4, Albumin/Globulin Ratio 1.1, TSH 1.33, Thyroxine (T4) 3.7 L 02/28/25 00:00: HCV Ab DELIO w/Rflx PCR Qn Negative, HIV Ag/Ab Combo Qual Negative 02/28/25 00:13: Urine Sodium 27.0 L 02/28/25 00:15: Urine Color Yellow, Urine Appearance Clear, Urine pH 5.5, Ur Specific Centre 1.015, Urine Protein Negative, Urine Glucose (UA) Negative, Urine Ketones Negative, Urine Blood Negative, Urine Nitrate Negative, Urine Bilirubin Negative, Urine Urobilinogen 0.2, Ur Leukocyte Esterase Negative, Urine RBC 3-5, Urine WBC 3-5, Ur Squamous Epith Cells Occasional, Urine Bacteria Trace 02/28/25 01:21: Sodium 137 02/28/25 03:19: Sodium 136, Troponin I 0.13 H 02/28/25 05:32: WBC 4.8, RBC 3.10 L, Hgb 8.5 L D, Hct 25.9 L, MCV 83.5, MCH 27.7, MCHC 33.2, RDW 15.4, Plt Count 129 L D, MPV 12.7 H, Neut % (Auto) 62.5, Lymph % (Auto) 21.2, [place] % (Auto) 9.6 H, Eos % (Auto) 5.5, Baso % (Auto) 1.0, Neut # (Auto) 3.0, Lymph # (Auto) 1.0, [place] # (Auto) 0.5, Eos # (Auto) 0.3, Baso # (Auto) 0.1, Sodium 139, Potassium 3.6, Chloride 102, Carbon Dioxide 23, Anion Gap 17.6 H, BUN 72 H, Creatinine 0.90, Estimated Creat Clear 41, Estimated GFR 61, Est GFR ( Amer) 73, Glucose 90, Lactate 2.0, Calcium 7.3 L, Total Bilirubin 1.2, AST 23, ALT 13, Alkaline Phosphatase 157 H, Total Protein 4.8 L, Albumin 2.7 L, Globulin 2.1, Albumin/Globulin Ratio 1.3 02/28/25 09:55: Sodium 137 I & O for Last 24 hours: Intake & Output 02/26/25 02/27/25 02/28/25 03/01/25 11:59 11:59 11:59 11:59 Intake Total 2321.670 / 7900.670 Balance 4642.366 / 2321.670 Weight 124 lb 4.8 oz Constitutional Constitutional: no acute distress *Routine Respiratory Exam Respiratory: Present rhonchi, crackles and diminished air movement; Absent wheezes *Routine Cardiovascular Exam Cardiovascular: Present RRR; Absent murmur, gallop or rubs *Routine Extremities Exam Extremities: Absent edema *Routine Neurological Exam Neurological: Present alert, oriented X3 and CN II-XII intact Meds Home Medications and Allergies Home Medications ?Medication ?Instructions ?Recorded ?Confirmed ?Type atorvastatin 40 mg tablet (Lipitor) 40 mg PO HS 01/23/18 02/28/25 History temazepam 30 mg capsule 30 mg PO HS 01/23/18 02/28/25 History omeprazole 20 mg capsule,delayed 20 mg PO HS 12/01/21 02/28/25 History release propranolol 10 mg tablet 10 mg PO TID 12/01/21 02/28/25 History carbidopa 25 mg-levodopa 250 mg 1 tab PO TID 10/24/22 02/28/25 History tablet acetaminophen 500 mg tablet 500 mg PO TID 02/28/25 02/28/25 History (Acetaminophen Extra Strength) ascorbic acid (vitamin C) 500 mg 500 mg PO BID 02/28/25 02/28/25 History tablet (Vitamin C) cholecalciferol (vitamin D3) 25 25 mcg PO DAILY 02/28/25 02/28/25 History mcg (1,000 unit) tablet (Vitamin D3) docusate sodium 100 mg capsule 100 mg PO BID 02/28/25 02/28/25 History gabapentin 100 mg capsule 100 mg PO BID 02/28/25 02/28/25 History hydrocodone 5 mg-acetaminophen 325 1 tab PO BID 02/28/25 02/28/25 History mg tablet lactulose 10 gram/15 mL oral 30 ml PO DAILYP PRN Constipation 02/28/25 02/28/25 History solution (Enulose) levothyroxine 50 mcg tablet 50 mcg PO DAILY 02/28/25 02/28/25 History minocycline 100 mg capsule 100 mg PO BID 02/28/25 02/28/25 History ropinirole 1 mg tablet 1 mg PO HS 02/28/25 02/28/25 History New Prescriptions to Start Prescriptions: Allergies Allergy/AdvReac Type Severity Reaction Status Date / Time aspirin AdvReac Intermediate Verified 10/12/22 14:20 Assessment and Plan *Assessment and plan (1) Altered mental status: Status: Acute Qualifiers: Altered mental status type: unspecified Qualified Code(s): R41.82 - Altered mental status, unspecified Category: Medical Code(s): R41.82 - Altered mental status, unspecified (2) Elevated troponin: Status: Acute Category: Medical Code(s): R79.89 - Other specified abnormal findings of blood chemistry (3) COVID: Status: Acute Category: Medical Code(s): U07.1 - COVID-19 (4) Hyponatremia: Status: Acute Category: Medical Code(s): E87.1 - Hypo-osmolality and hyponatremia (5) Hypotension: Status: Acute Qualifiers: Hypotension type: unspecified hypotension type Qualified Code(s): I95.9 - Hypotension, unspecified Category: Medical Code(s): I95.9 - Hypotension, unspecified (6) Parkinsonism: Status: Acute Qualifiers: Parkinsonism type: unspecified Qualified Code(s): G20.C - Parkinsonism, unspecified Category: Medical Code(s): G20.C - Parkinsonism, unspecified (7) Osteoarthritis involving multiple joints on both sides of body: Status: Acute Category: Medical Code(s): M15.9 - Polyosteoarthritis, unspecified Plan 1. AMS in setting of COVID, hyponatremia, hypotension and chronic small vessel disease of brain (noted on Head CT 2021) -improved with IVF and dopamine (now off) -Na up to normal -BP improved with SBP in the 90's 2. Elevated troponins in patient with known coronary artery calcifications -Echo shows normal LVEF with mild RV dilation and mild biatrial dilation with no significant valve disease. -likely due to strain related to COVID infection -continue trending troponins -unable to add GDMT due to low BP -continue ASA -resume statin at discharge 3. Osteoarthritis -PRN pain meds per Dr. Sorto 4. Anemia with low platelets -check stool for blood No plans for invasive procedures at this time. Consider outpatient testing when recovered from COVID. Continue ASA 81 mg daily Resume propranolol when BP allows Resume statin therapy
--- NOTE | 2025-02-28 13:56 | PC.WOUNDNOTE ---
Pressure sore on patients L Elbow
--- NOTE | 2025-02-28 16:00 | PC.NURSE ---
Patient alert to self and birthday at this time. Dr. Sorto notified. No new orders received. Continuation of care plan.
[2025-02-28 16:04] LABS: Sodium 129 mmol/L (136-145)
[2025-02-28 16:20] LABS: Troponin I 0.16 ng/ml (0.00-0.034)
[2025-02-28] MEDS: POLYETHYLENE GLYCOL 3350 17 GM PACKET PO (16:43)
--- NOTE | 2025-02-28 17:20 | PC.NURSE ---
at bedside. Continuation of care plan.
[2025-02-28] MEDS: SENNA 8.6MG TABLET 17.2 MG PO (20:01)
[2025-03-01] VITALS: BP 140/92; PULSE 88; PULSE 95; RESP 24; TEMP 36.6; O2SAT 99
[2025-03-01] MEDS: LACTATED RINGERS 1000ML 1,000 ML 100 ML IV (02:10)
[2025-03-01 04:00] VITALS: BP 135/90; PULSE 95; PULSE 96; RESP 18; TEMP 37; O2SAT 98; BMI 24.7
[2025-03-01 08:00] VITALS: BP 140/84; PULSE 80; PULSE 87; RESP 16; TEMP 37.8; O2SAT 99
--- NOTE | 2025-03-01 09:57 | PC.NURSE ---
CALLED LAB AND ASKED IF GORGE COULD COME UP AND TRY AGAIN TO DRAW LABS
[2025-03-01 10:20] LABS: Albumin Level 2.6 g/dl (3.5-5.0); Chloride 107 mmol/L (98-107); Potassium 3.7 mmoL/L (3.5-5.1); Sodium 139 mmol/L (136-145)
[2025-03-01 10:23] LABS: Alanine Aminotransferase 22 U/L (12-78); Albumin/Globulin Ratio 1.2 (1.1-1.8); Alkaline Phosphatase 146 U/L (38-126); Anion Gap 11.7 mEq/L (5-15); Aspartate Amino Transferase 28 U/L (14-36); Bilirubin,Total 1.6 mg/dl (0.2-1.3); Blood Urea Nitrogen 35 mg/dl (7-17); Calcium 7.7 mg/dl (8.4-10.2); Carbon Dioxide 24 mmol/L (22.0-30.0); Creatinine Clearance Estimated 42 mL/min (50-200); Creatinine,Serum 0.60 mg/dl (0.52-1.04); Estimated Glomerular Filt Rate 97 ml/min (>60); GFR (African American) 117 ML/MIN (>60); Globulin 2.2 g/dL (1.3-3.2); Glucose 86 mg/dl (74-100); Total Protein,Serum 4.8 g/dl (6.3-8.2)
[2025-03-01 10:26] LABS: Hematocrit 24.6 % (37.0-47.0); Hemoglobin 8.5 g/dL (12.2-16.2); Immature Granulocytes % 0.4 %; Mean Corpuscular HGB Conc 34.6 g/dL (31.8-35.4); Mean Corpuscular Hemoglobin 27.6 pg (27.0-31.2); Mean Corpuscular Volume 79.9 fl (81-99); Nucleated Red Blood Cells % 0.9 %; Platelet Count 146 K/mm3 (142-424); Red Blood Count 3.08 M/mm3 (4.20-5.40); Red Cell Distribution Width-SD 42.8 fL; White Blood Count 4.6 K/mm3 (4.8-10.8)
--- NOTE | 2025-03-01 10:26 | PC.NURSE ---
MULTIPLE ATEMPTS TO GET [facility] TO TAKE HER MORNING MEDS AND PATIENT CONTINUES TO REFUSE, WILL CONTINUE TO TRY
[2025-03-01] MEDS: POLYETHYLENE GLYCOL 3350 17 GM PACKET PO (11:04)
[2025-03-01] MEDS: PRO-STAT AWC 30ML LIQUID PACKET 30 ML PO (11:06)
[2025-03-01] MEDS: DOCUSATE SODIUM 10 ML/UDC UDC PO (11:07)
[2025-03-01] MEDS: ASPIRIN EC 81MG TABLET 81 MG PO (11:16)
[2025-03-01 12:00] VITALS: BP 135/74; PULSE 80; PULSE 90; RESP 16; TEMP 37.2; O2SAT 98
[2025-03-01 13:17] LABS: Iron 97 ug/dL (37-170)
[2025-03-01 13:26] LABS: Total Iron Binding Capacity 107 ug/dL (265-497)
[2025-03-01 13:53] LABS: Ferritin 354 ng/ml (11.1-264)
--- NOTE | 2025-03-01 13:59 | EXP.DC.SUM ---
General Admission date:: 02/28/25 HPI HPI HPI: This is a 79-year-old female who has a past medical history significant for malignant melanoma of the left shoulder, benign thyroid tumor, hypothyroidism, anemia, osteoporosis, hypertension, and hyperlipidemia who presents from her nursing facility with increased confusion and hypotension. Due to patient's symptoms, she presented to the emergency room for evaluation. While in the emergency room, patient's systolic blood pressure was in the 70s. She was given a 2 L bolus and her systolic blood pressure did improve to the 80s and her mean arterial pressure improved to the the 64. Due to persistent hypotension of unknown origin, hospital medicine was consulted for further management. During my evaluation of the patient, she was pleasant able to answer questions however she was confused. 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 She states that she is prescribed lisinopril and has been taking this for some time. Review of patient's EMR shows she is prescribed hydrochlorothiazide, labetalol, and losartan for management of hypertension. Patient does have a left upper extremity contracture. Reportedly, patient's systolic blood pressure at the detention was in the 60s. I am unsure if patient's objective findings would be reliable however she is denying any lightheadedness, dizziness, chest pain, shortness of breath, dyspnea, PND, blurred vision, double vision, headache, or diarrhea. Chest x-ray obtained and shows no consolidations subsegmental atelectasis versus scarring of the left lung base. Additional pertinent labs obtained include a red blood cell count of 3.67, hemoglobin 10.2, hematocrit 30.2, sodium 125, chloride of 95, BUN of 90, GFR of 54, calcium 8.1, ALT 11, alkaline phosphate of 205, total protein of 5, albumin of 2.6, and urinalysis was unremarkable. Hospital Course Hospital Course Hospital Course: Britta Xiao is a 79-year-old female who presented from [facility] and rehab nursing [facility] with confusion and hypotension and was admitted for the same. Found to be positive for COVID-19. Patient's blood pressures were stable upon arrival to the ICU, she should have been observation from the upon admission. #Acute metabolic encephalopathy, resolving #COVID-19 infection ? Confusion seems to be improving, but continues to have intermittent episodes of seeing things that are not there. Not agitated, overall pleasant. ? Confusion and encephalopathy likely from COVID-19 infection. Will likely improve as infection self resolves. ? On room air, vital signs stable. No signs of pneumonia or other infectious signs. Continue supportive therapy. #Hypotension ? Patient presented with poor oral intake in the setting of COVID-19 infection, also taking propranolol 10 mg 3 times daily. ? Presented with systolics in the 70s, improved with resuscitation in the ED. Blood pressures have been stable without propranolol. ? Hold propranolol until needed for BP. #NSTEMI likely type II ? Troponins peaked at 0.16, EKG without acute ischemic changes. ? ECHO with normal biventricular systolic function without wall motion abnormalities. NSTEMI likely type II in setting of COVID-19. ? Cardiology consulted, recommend outpatient ischemic workup. ? Discharged with aspirin 81 mg, atorvastatin 40 mg. #Restless leg syndrome ? Continue home Requip, gabapentin. #GERD ? Continue home omeprazole. #Microcytic anemia ? Hemoglobin 8.5, stable. MCV low at 79, iron level is normal. B12 normal, folate pending. Total time spent on discharge: 31 minutes on chart review, counseling, documentation, and direct care with patient. Exam Data for Last 24 hours Vital signs and Labs for Last 24 Hours: Temp Pulse Resp BP Pulse Ox O2 Del Method 99.0 F 90 16 135/74 98 Room Air 03/01/25 12:00 03/01/25 12:00 03/01/25 12:00 03/01/25 12:00 03/01/25 12:00 03/01/25 13:00 Laboratory Results - last 24 hr 02/28/25 14:25: Sodium 129 L, Troponin I 0.16 H 03/01/25 10:05: WBC 4.6 L, RBC 3.08 L, Hgb 8.5 L, Hct 24.6 L, MCV 79.9 L, MCH 27.6, MCHC 34.6, RDW 14.7, Plt Count 146, MPV 12.6 H, Neut % (Auto) 77.2, Lymph % (Auto) 12.9, [place] % (Auto) 7.9, Eos % (Auto) 0.7, Baso % (Auto) 0.9, Neut # (Auto) 3.5, Lymph # (Auto) 0.6 L, [place] # (Auto) 0.4, Eos # (Auto) 0.0, Baso # (Auto) 0.0, Sodium 139, Potassium 3.7, Chloride 107, Carbon Dioxide 24, Anion Gap 11.7, BUN 35 H D, Creatinine 0.60 D, Estimated Creat Clear 42, Estimated GFR 97, Est GFR ( Amer) 117 D, Glucose 86, Calcium 7.7 L, Total Bilirubin 1.6 H, AST 28, ALT 22 D, Alkaline Phosphatase 146 H, Total Protein 4.8 L, Albumin 2.6 L, Globulin 2.2, Albumin/Globulin Ratio 1.2 03/01/25 10:10: Iron 97, TIBC 107 L, Iron Saturation 90.92911 H, Ferritin 354 H I & O for Last 24 hours: Intake & Output 02/26/25 02/27/25 02/28/25 03/01/25 23:59 23:59 23:59 23:59 Intake Total 3288.337 / 3288.337 1780 / 1780 Output Total 950 / 1050 800 / 800 Balance 2338.337 / 2238.337 980 / 980 Weight 62.233 kg 56.382 kg 57.243 kg Microbiology Reports for the Last 24 Hours: Microbiology 02/28/25 02:00 Anus CRE Surveillance Culture - Final 02/27/25 23:45 Blood Blood Culture - Preliminary NO GROWTH AFTER 24 HOURS 02/27/25 23:30 Blood Blood Culture - Preliminary NO GROWTH AFTER 24 HOURS Constitutional Constitutional: no acute distress and chronically ill appearing *Routine HEENT Exam Head: Present normocephalic Eye: Present EOMI and PERRL ENT: Present mucous membranes moist *Routine Neck Exam Neck: Present supple; Absent lymphadenopathy *Routine Respiratory Exam Respiratory: Present CTA bilaterally *Routine Cardiovascular Exam Cardiovascular: Present RRR *Routine Abdominal Exam Abdominal: Present soft and normoactive bowel sounds; Absent tenderness *Routine Extremities Exam Extremities: Absent cyanosis, clubbing or edema Comments: Left upper extremity, bilateral lower extremity contractures. *Routine Skin Exam Skin: Present warm; Absent rash *Routine Neurological Exam Neurological: Present alert Results Data Completed and Pending Labs on day of discharge: Labs from last 24 hours 03/01/25 03/01/25 02/28/25 10:10 10:05 14:25 WBC 4.6 L RBC 3.08 L Hgb 8.5 L Hct 24.6 L MCV 79.9 L MCH 27.6 MCHC 34.6 RDW 14.7 Plt Count 146 MPV 12.6 H Neut % (Auto) 77.2 Lymph % (Auto) 12.9 [place] % (Auto) 7.9 Eos % (Auto) 0.7 Baso % (Auto) 0.9 Neut # (Auto) 3.5 Lymph # (Auto) 0.6 L [place] # (Auto) 0.4 Eos # (Auto) 0.0 Baso # (Auto) 0.0 Sodium 139 129 L Potassium 3.7 Chloride 107 Carbon Dioxide 24 Anion Gap 11.7 BUN 35 H D Creatinine 0.60 D Estimated Creat Clear 42 Estimated GFR 97 Est GFR ( Amer) 117 D Glucose 86 Calcium 7.7 L Iron 97 TIBC 107 L Iron Saturation 90.00693 H Ferritin 354 H Total Bilirubin 1.6 H AST 28 ALT 22 D Alkaline Phosphatase 146 H Troponin I 0.16 H Total Protein 4.8 L Albumin 2.6 L Globulin 2.2 Albumin/Globulin Ratio 1.2 Preliminary micro results at discharge 02/27/25 23:45 Blood Culture - Preliminary Blood NO GROWTH AFTER 24 HOURS 02/27/25 23:30 Blood Culture - Preliminary Blood NO GROWTH AFTER 24 HOURS DS: Diagnosis Discharge Diagnosis (1) Altered mental status: Status: Acute Code(s): R41.82 - Altered mental status, unspecified Qualifiers: Altered mental status type: unspecified Qualified Code(s): R41.82 - Altered mental status, unspecified (2) Elevated troponin: Status: Acute Code(s): R79.89 - Other specified abnormal findings of blood chemistry (3) COVID: Status: Acute Code(s): U07.1 - COVID-19 (4) Hyponatremia: Status: Acute Code(s): E87.1 - Hypo-osmolality and hyponatremia (5) Hypotension: Status: Acute Code(s): I95.9 - Hypotension, unspecified Qualifiers: Hypotension type: unspecified hypotension type Qualified Code(s): I95.9 - Hypotension, unspecified (6) Parkinsonism: Status: Acute Code(s): G20.C - Parkinsonism, unspecified Qualifiers: Parkinsonism type: unspecified Qualified Code(s): G20.C - Parkinsonism, unspecified (7) Osteoarthritis involving multiple joints on both sides of body: Status: Acute Code(s): M15.9 - Polyosteoarthritis, unspecified Meds Home Medications and Allergies Home Medications ?Medication ?Instructions ?Recorded ?Confirmed ?Type atorvastatin 40 mg tablet (Lipitor) 40 mg PO HS 01/23/18 02/28/25 History temazepam 30 mg capsule 30 mg PO HS 01/23/18 02/28/25 History omeprazole 20 mg capsule,delayed 20 mg PO HS 12/01/21 02/28/25 History release propranolol 10 mg tablet 10 mg PO TID 12/01/21 02/28/25 History carbidopa 25 mg-levodopa 250 mg 1 tab PO TID 10/24/22 02/28/25 History tablet acetaminophen 500 mg tablet 500 mg PO TID 02/28/25 02/28/25 History (Acetaminophen Extra Strength) ascorbic acid (vitamin C) 500 mg 500 mg PO BID 02/28/25 02/28/25 History tablet (Vitamin C) cholecalciferol (vitamin D3) 25 25 mcg PO DAILY 02/28/25 02/28/25 History mcg (1,000 unit) tablet (Vitamin D3) docusate sodium 100 mg capsule 100 mg PO BID 02/28/25 02/28/25 History gabapentin 100 mg capsule 100 mg PO BID 02/28/25 02/28/25 History hydrocodone 5 mg-acetaminophen 325 1 tab PO BID 02/28/25 02/28/25 History mg tablet lactulose 10 gram/15 mL oral 30 ml PO DAILYP PRN Constipation 02/28/25 02/28/25 History solution (Enulose) levothyroxine 50 mcg tablet 50 mcg PO DAILY 02/28/25 02/28/25 History ropinirole 1 mg tablet 1 mg PO HS 02/28/25 02/28/25 History aspirin 81 mg tablet,delayed 81 mg PO DAILY 30 days #30 tabs 03/01/25 Rx release New Prescriptions to Start Prescriptions: Miguel Gray Allergies Allergy/AdvReac Type Severity Reaction Status Date / Time aspirin AdvReac Intermediate Verified 10/12/22 14:20 Discharge Plan Disposition Condition: Fair Discharge Order Discharge Orders: Discharge Order (Routine); Ordered 03/01/25 Ordered By: Miguel Sorto Follow up Plan Follow up with: Andres Shin PA [Physician Headlight Assembler, Cardiology] - 03/12/25 2:30 pm Lupe Ludwig, [employer] [Primary Care Provider, Medical] - Enter time for follow up Referral Note: Provider to see at facilty Prescriptions/Medication Reconciliation: New aspirin 81 mg Tablet,Delayed Release (Dr/Ec) 81 mg PO DAILY 30 Days Qty: 30 0RF Continued atorvastatin [Lipitor] 40 mg tablet 40 mg PO HS temazepam 30 mg capsule 30 mg PO HS omeprazole 20 mg capsule,delayed release(DR/EC) 20 mg PO HS carbidopa-levodopa 25-250 mg tablet 1 tab PO TID ropinirole 1 mg tablet 1 mg PO HS hydrocodone-acetaminophen 5-325 mg Tablet 1 tab PO BID acetaminophen [Acetaminophen Extra Strength] 500 mg Tablet 500 mg PO TID ascorbic acid (vitamin C) [Vitamin C] 500 mg Tablet 500 mg PO BID levothyroxine 50 mcg Tablet 50 mcg PO DAILY docusate sodium 100 mg Capsule 100 mg PO BID gabapentin 100 mg Capsule 100 mg PO BID lactulose [Enulose] 10 gram/15 mL Solution 30 ml PO DAILYP PRN (Reason: Constipation) cholecalciferol (vitamin D3) [Vitamin D3] 25 mcg (1,000 unit) Tablet 25 mcg PO DAILY Held propranolol 10 mg tablet 10 mg PO TID Hold Instructions: Resume on 03/15/25. Blood pressures stable without blood pressure medications. Start one by one as needed. Discontinued minocycline 100 mg Capsule 100 mg PO BID Problem Reconciliation Problems Reviewed?: Yes Patient Discharge Instructions Print Language: Jordanian Providers Primary Care Provider: Lupe Ludwig Admit Provider: Miguel Sorto Attending Provider: Miguel Sorto
[2025-03-01 14:00] LABS: Vitamin B12 869 pg/mL (239-931)
[2025-03-01 14:25] LABS: Folate 9.26 ng/mL
--- NOTE | 2025-03-01 15:09 | PC.NURSE ---
Family notified that patient would be discharging back tot the care home today
--- NOTE | 2025-03-01 15:16 | PC.NURSE ---
Facility would not take report at this time due to not having discharge papers. D/c papers have been faxed multiple times.
--- NOTE | 2025-03-01 15:54 | PC.NURSE ---
report given to shelter at this time
--- NOTE | 2025-03-01 15:57 | PC.NURSE ---
[facility] notified of need for transport
[2025-03-01 16:00] VITALS: PULSE 80
[2025-03-01 16:18] LABS: Cortisol,AM 7.7 ug/dL (6.2-19.4)
== END 2025-03-01 16:30 ==
LOC: ER 23:57 → ICU 02-28 01:47
PROVIDERS: Nurse Practitioner Family; Physician Assistant; Admitting Provider Student in an Organized Health Care Education/Training Program; Emergency Provider Emergency Medicine; PCP Nurse Practitioner Family; Visit Provider Student in an Organized Health Care Education/Training Program
DX: G93.41 Metabolic encephalopathy (principal); R79.89 Other specified abnormal findings of blood chemistry; U07.1 COVID-19; E87.1 Hypo-osmolality and hyponatremia; I95.9 Hypotension, unspecified; G20.C Parkinsonism, unspecified; M15.9 Polyosteoarthritis, unspecified; R00.1 Bradycardia, unspecified; R74.8 Abnormal levels of other serum enzymes; E78.5 Hyperlipidemia, unspecified; I10 Essential (primary) hypertension; M81.0 Age-related osteoporosis without current pathological fracture; Z88.8 Allergy status to other drugs, medicaments and biological substances; Z79.899 Other long term (current) drug therapy; Z79.890 Hormone replacement therapy; Z79.02 Long term (current) use of antithrombotics/antiplatelets; K21.9 Gastro-esophageal reflux disease without esophagitis; G25.81 Restless legs syndrome; D64.9 Anemia, unspecified
CPT/HCPCS: 36415; 71045; 80053; 81001; 82533; 82607; 82728; 82746; 82803; 83540; 83550; 83605; 83735; 84295; 84436; 84443; 84484; 84540; 85025; 86803; 87040; 87081; 87389; 87636; 93005; 93306; 97162; 97166; 99285; G0378; J1650; J7030; J7060; J7120; P9047

== ENCOUNTER 2025-03-12 12:44 | Outpatient (CLI) | payer MEDICARE, OTHER, SELFPAY ==
--- OUTSIDE RECORDS SUMMARY | 2025-03-12 12:49 | XMS_ITS | Encounter Summary ---
Author Organization Healthcare Address [address] [place] [address] Care Team Providers Care Manager Of Sales Name Role Phone Elijah Cota MD Primary Care Provider [phone] Reason for Visit * Auth/Cert Specialty Diagnoses / Procedures Referred By Contac t Referred To Contact Diagnoses Hardware complicating wound infection, sequela Jaden Cantrell MD [address] [facility] [address] [place] [address] Phone: tel: fax: [facility] Emergency Department [address] [place] [address] Phone: tel: Referral ID Status Reason Start Date Expiration Date Visits Re quested Visits Authorized [id number] 1 1 Encounter Details Date Type Department Care Team (Late st Contact Info) Description 06/04/2021 Lab Requisition [facility] [address] [place] [address] Steve Hurtado MD [address] [facility] [address] [place] [address] Osteomyelitis, unspecified (CMS/HCC) Social History [...] AM EST documented as of this encounter Functional Status documented as of this encounter Mental Status * Question Answer Entry Date Author Precautions Environmental surveillance 06/04/2021 8:0 0 AM EST Ricky Amelia J documented in this encounter Plan of Treatment Not on file documented as of this encounter Procedures Procedure Name Priority Date/Time Associated Diagnosis Comments C-REACTIVE PROTEIN, PLASMA Routine 06/04/2021 3:00 PM EST Osteomyelitis, unspecified (CMS/HCC) documented in this encounter Results * C-reactive protein (06/04/2021 3:00 PM EST) CRP, Plasma 3.6 <=8.0 mg/L 06/04/2021 4:41 PM EST [facility] Blood Venous blood specimen / Unknown 06/04/2021 3:00 PM EST 06/04/2021 4:04 PM EST Narrative [facility] - 06/04/2021 4:41 PM EST This CRP test is appropriate for assessment of infection, systemic inflammation and/or tissue injury. To assess cardiovascular disease risk order high sensitivity CRP (CRPH). us Steve Hurtado MD LAB BLOOD ORDERABLES Final Re sult [facility] [address] [place] [address] documented in this encounter Visit Diagnoses Diagnosis Osteomyelitis, unspecified (CMS/HCC) documented in this encounter Additional Health Concerns Assessment Noted Time A fall risk assessment has been complete d for the patient 05/26/2021 8:30 AM EST documented as of this encounter Care Teams Manager Of Sales Relationship Specialty Start Date End Date Elijah Cota MD [address] [place] [address] PCP - General 03/26/21 documented as of this encounter
--- OUTSIDE RECORDS SUMMARY | 2025-03-12 12:49 | XMS_ITS | Clinical Summary ---
Author Organization [facility] Address [address] [place] [address] Care Team Providers Care Finished Cloth Examiner Name Role Phone Elijah Cota MD Primary Care Provider + [phone] Allergies Active Allergy Reactions Criticality Noted Date [...] for 30 minutes after Active HYDROcodone-chandni taminophen (Premium) 5-325 MG tablet Take 1 tablet (5 mg of hydrocodone) by mouth every 12 (twelve) hours if needed for moderate pain. Active Wound Dressings ([facility] WOUND &BURN DRESSING EX) Apply topically [...] (06/01/2021): Added automatically from request for surgery [id number] HTN (hypertension) 05/12/2021 Hypothyroidism 05/12/2021 Gastroesophageal reflux disease 05/12/2021 Elbow fracture, left, closed, initial encounter 04/02/2021 Resolved Problems Problem Noted Date Diagnosed Date Resolved Date DJD (degenerative joint disease) 10/26/2022 12/23/2024 Hardware complicating wound infection 05/26/2021 10/14/2023 Exposed orthopaedic hardware 05/26/2021 06/03/2021 Overview (06/01/2021): Added automatically from request for surgery [id number] Fall 05/12/2021 05/18/2021 Arthritis 05/12/2021 12/16/2024 Exposed orthopaedic hardware 05/11/2021 06/01/2021 Overview (05/12/2021): Added automatically from request for surgery [id number] Elbow pain, left 03/31/2021 10/14/2023 Overview (03/31/2021): Added automatically from request for surgery [id number] Immunizations Immunization Administration Dates Next Due Influenza, [...] and Family Not on file 10/13/2023 Attends [employer] Services Not on file 10/12 Active Member [...] place to sleep or slept in a skilled nursing (including now)? No 10/13/2023 CAGE ASSESSMENT Answer [...] drink first t michelle in the morning (EYE-SAMPLE CUTTER) to steady your nerves or to get rid of a hangover? 0 10/11/2023 CAGE Questionnaire Score 0 024 Utilities Answer Date Recorded In the past 12 months has th [employer], gas, oil, or water company threatened to [...] 75+ series) 2021 [facility]-Depression Screening 06/20/2024 06/21/2023 [id number]-[id number]-15 Vaccine (3 - season) 2024 01/28/2021, 06/03/2020 [facility]-Influenza Vaccine (#1) 11/26/202405/05, 12/18/2020, 11/28/2019, Additional history exists [facility]-Hepatitis C Screening Completed 05/11/2021 HPV Vaccines (No Doses Required) Completed [facility]-HIB Vaccines Aged Out No longer e [...] this topic Medical Devices Implanted Type Area Shell Grader Device Identifier Shelf Expiration Date Model / Serial / Lot Screw 3.5mm Pericortical 2.7mm Hd Selftap 56mm - [id number] Implanted:Qty: 1 on 04/02/2021 by Samuel Aquino MD at [facility] Screw Left: Elbow [employer]. Inc-[id number] 04/01/2022 [id number] / / Screw 6.5mm Cannulated 32mm Thrd/100mm - S. - [id number] Implanted:Qty: 1 on 05/27/2021 by Ulices Galvez MD at [facility] Screw Left: Elbow [employer] USA-[id number] 05/27/2022 208.442 / . / Washer 13mm Lg - S. - [id number] Implanted:Qty: 1 on 05/27/2021 by Ulices Galvez MD at [facility] Washer Left: Elbow [employer] USA-[id number] 05/27/2022 219.99 / . / Wire Threaded Tip K 1.6 Mm - [id number] Implanted:Qty: 1 on 04/02/2021 by Samuel Aquino MD at [facility] Wire Left: Elbow Missael US Inc-[id number] 04/01/2022 8290-16-006 / / Rods/Screws N/A: Back Screw 2.5mm Peg 20mm - [id number] Implanted:Qty: 2 on 04/02/2021 by Samuel Aquino MD at [facility] Left: Elbow Missael US Inc-[id number] 04/02/2021 [id number] / / Screw 2.5mm Peg 22mm - [id number] Implanted:Qty: 2 on 04/02/2021 by Samuel Aquino MD at [facility] Left: Elbow Miss[employer] Inc-[id number] 04/02/2021 [id number] / / Dist Hum Med Lt 13hole 127mm - [id number] Implanted:Qty: 1 on 04/02/2021 by Samuel Aquino MD at [facility] Left: Elbow Miss[employer] US Inc-[id number] 04/02/2021 [id number] / / Screw 2.7mm Cortical Locking 50mm - [id number] Implanted:Qty: 2 on 04/02/2021 by Samuel Aquino MD at [facility] Left: Elbow [employer] Inc-[id number] 04/02/2021 [id number] / / Screw 3.5mm Cortical Solid Ft 24mm - [id number] Implanted:Qty: 1 on 04/02/2021 by Samuel Aquino MD at [facility] Left: Elbow [employer] Inc-214661 04/02/2021 [id number] / / Screw 3.5mm Cortical Solid Ft 22mm - [id number] Implanted:Qty: 2 on 04/02/2021 by Samuel Aquino MD at [facility] Left: Elbow [employer] Inc-[id number] 04/02/2021 [id number] / / Screw 3.5mm Cortical Solid Ft 30mm - [id number] Implanted:Qty: 1 on 04/02/2021 by Samuel Aquino MD at [facility] Left: Elbow [employer] Inc-075040 04/02/2021 [id number] / / Putty Norian Fast Set 10cc - [id number] Implanted:Qty: 1 on 04/02/2021 by Samuel Aquino MD at [facility] Left: Elbow [employer]ynthes USA-859865 08/22/2021 07.704.110S / / Plate Prox Lloyd Ulna 4h Lt - [id number] Implanted:Qty: 1 on 04/02/2021 by Samuel Aquino MD at [facility] Left: Elbow [employer] Inc-[id number] 04/02/2021 [id number] / / Screw 3.5mm Periart 2.7mm Head Selftap 20mm - [id number] Implanted:Qty: 1 on 04/02/2021 by Samuel Aquino MD at [facility] Left: Elbow [employer] Inc-[id number] 04/02/2021 [id number] / / Screw 3.5mm Periart 2.7mm Head Selftap 24mm - [id number] Implanted:Qty: 1 on 04/02/2021 by Samuel Aquino MD at [facility] Left: Elbow [employer] Inc-[id number] 04/02/2021 [id number] / / Screw 3.5mm Periart 2.7mm Head Selftap 18mm - [id number] Implanted:Qty: 1 on 04/02/2021 by Samuel Aquino MD at [facility] Left: Elbow [employer] Inc-[id number] 04/02/2021 [id number] / / Screw 3.5mm Periart 2.7mm Head Selftap 44mm - [id number] Implanted:Qty: 1 on 04/02/2021 by Samuel Aquino MD at [facility] Left: Elbow [employer] Inc-775021 04/02/2021 [id number] / / Screw 3.5mm Periart 2.7mm Head Selftap 110mm - [id number] Implanted:Qty: 1 on 04/02/2021 by Samuel Aquino MD at [facility] Left: Elbow [employer] Inc-780601 04/02/2021 [id number] / / Screw 2.7mm Cortical Small Hex Selftap 60mm - [id number] Implanted:Qty: 1 on 04/02/2021 by Samuel Aquino MD at [facility] Left: Elbow [employer] US Inc-[id number] 04/02/2021 [id number] / / Cement Palacos Lv W Gent - [id number] Implanted:Qty: 2 on 12/21/2022 by Deshawn Miller MD at [facility] Left: Knee Herae[employer] Inc-816850 11/26/2023 [id number] / / [id number] Cement Palacos Lv W Gent - [id number] Implanted:Qty: 4 on 12/21/2022 by Deshawn Miller MD at [facility] Left: Knee Herae[employer] Inc-[id number] 05/26/2023 [id number] / / [id number] Cement Palacos Mv - [id number] Implanted:Qty: 1 on 12/21/2022 by Deshawn Miller MD at [facility] Left: Knee [employer]ae[employer] Inc-[id number] 03/27/2027 [id number] / / [id number] Chg Base Leg Tib Hk Sz 2 Lt - [id number] Implanted:Qty: 1 on 12/21/2022 by Deshawn Miller MD at [facility] Left: Knee [employer] Inc-475849 10/11/2031 [id number] / / [id number] Chg Stem Lgn [id number] - [id number] Implanted:Qty: 1 on 12/21/2022 by Deshawn Miller MD at [facility] Left: Knee [employer] Inc-788469 03/21/2027 [id number] / / [id number] Chg Stem Lgn [id number] - [id number] Implanted:Qty: 1 on 12/21/2022 by Deshawn Miller MD at [facility] Left: Knee [employer] Inc-946265 01/13/2030 [id number] / / [id number] Chg Base Leg Fem Hk Sz 4 Lt - [id number] Implanted:Qty: 1 on 12/21/2022 by Deshawn Miller MD at [facility] Left: Knee [employer] Inc-404908 09/08/2025 [id number] / / [id number] Chg Patella Gii Oval Resurfaci - [id number] Implanted:Qty: 1 on 12/21/2022 by Deshawn Miller MD at [facility] Left: Knee [employer] Inc-480096 09/21/2032 [id number] / / [id number] Chg Sleeve Legion Hnge 11mm Josh - [id number] Implanted:Qty: 1 on 12/21/2022 by Deshawn Miller MD at [facility] Left: Knee [employer] Inc-481554 04/27/2032 [id number] / / [id number] Chg Insert Lgn Hng Gd Mt 11mm - [id number] Implanted:Qty: 1 on 12/21/2022 by Deshawn Miller MD at [facility] Left: Knee [employer] Inc-767034 11/03/2031 [id number] / / [id number] Procedures Procedure Name Priority Date/Time Associated Diagnosis Comments HEPATITIS C ANTIBODY - ED W/REFLEX TO HCV QUANT PCR STAT 05/11/2021 9:50 PM EST from Last 3 Months or Most Recently Relevant to Health Maintenance Results * [place] Hepatitis C Antibody (05/11/2021 9:50 PM EST) [facility] Hepatitis C Antibody Negative Negative 05/11/2021 11:12 PM EST [facility] Blood Venous blood specimen / Unknown Venipuncture / Unknown 05/11/2021 9:50 PM EST 05/11/2021 9:59 PM EST us Mally Vital MD LAB BLOOD ORDERABLES Final Res ult [facility] [address] [place] [address] from Last 3 Months or Most Recently Relevant to Health Maintenance Insurance MEDICARE Member Subscriber Plan / Payer (Ef fective 2011-Present) Name:Britta Xiao Member ID:[id number] Relation to Subscriber:Self Name:Britta Xiao Subscriber ID:[id number] Payer ID:MEDICARE Group ID:Not on file Type:Medicare Address: [address] [facility] Advance Directives * Full Code (Latest Code [...] Patient has decision-making capacity? Yes Care Teams Finished Cloth Examiner Relationship Specialty Start Date End Date Elijah Cota MD [address] [place], [place] [address] PCP - General 03/26/21
[2025-03-12 13:54] LABS: Hematocrit 23.3 % (37.0-47.0); Hemoglobin 7.9 g/dL (12.2-16.2); Immature Granulocytes % 0.2 %; Mean Corpuscular HGB Conc 33.9 g/dL (31.8-35.4); Mean Corpuscular Hemoglobin 27.7 pg (27.0-31.2); Mean Corpuscular Volume 81.8 fl (81-99); Nucleated Red Blood Cells % 0 %; Platelet Count 297 K/mm3 (142-424); Red Blood Count 2.85 M/mm3 (4.20-5.40); Red Cell Distribution Width-SD 51.9 fL; White Blood Count 4.6 K/mm3 (4.8-10.8)
[2025-03-12 15:15] LABS: Alanine Aminotransferase 7 U/L (12-78); Albumin Level 2.2 g/dl (3.5-5.0); Albumin/Globulin Ratio 1.0 (1.1-1.8); Alkaline Phosphatase 119 U/L (38-126); Anion Gap 6.6 mEq/L (5-15); Aspartate Amino Transferase 32 U/L (14-36); Bilirubin,Total 0.9 mg/dl (0.2-1.3); Blood Urea Nitrogen 26 mg/dl (7-17); Carbon Dioxide 26 mmol/L (22.0-30.0); Chloride 105 mmol/L (98-107); Creatinine,Serum 1.00 mg/dl (0.52-1.04); Estimated Glomerular Filt Rate 54 ml/min (>60); GFR (African American) 65 ML/MIN (>60); Globulin 2.2 g/dL (1.3-3.2); Sodium 135 mmol/L (136-145); Total Protein,Serum 4.4 g/dl (6.3-8.2)
[2025-03-12 15:39] LABS: Potassium 2.6 mmoL/L (3.5-5.1)
[2025-03-12 16:24] LABS: Calcium 8.1 mg/dl (8.4-10.2); Glucose 74 mg/dl (74-100)
== END 2025-03-12 23:59 | disposition home or self-care (01) ==
LOC: LAB.DROPOF 12:46
PROVIDERS: PCP Nurse Practitioner Family; Visit Provider Internal Medicine Adolescent Medicine
DX: I10 Essential (primary) hypertension (principal)
CPT/HCPCS: 80053; 85025

== ENCOUNTER 2025-03-12 21:35 | Outpatient (CLI) | payer MEDICARE, OTHER, SELFPAY ==
--- OUTSIDE RECORDS SUMMARY | 2025-03-12 21:39 | XMS_ITS | Encounter Summary ---
Author Organization Healthcare Address [address] [place] [address] Care Team Providers Care Noteman Name Role Phone Elijah Cota MD Primary Care Provider [phone] Reason for Visit * Auth/Cert Specialty Diagnoses / Procedures Referred By Contac t Referred To Contact Diagnoses Hardware complicating wound infection, sequela Jaden Cantrell MD [address] [facility] [address] [place] [address] Phone: tel: fax: [facility] Emergency Department [address] [place] [address] Phone: tel: Referral ID Status Reason Start Date Expiration Date Visits Re quested Visits Authorized [id number] 1 1 Encounter Details Date Type Department Care Team (Late st Contact Info) Description 06/04/2021 Lab Requisition [facility] Laboratory Services [address] [place] [address] Steve Hurtado MD [address] [facility] [address] [place] [address] Osteomyelitis, unspecified (CMS/HCC) Social History [...] <=8.0 mg/L 06/04/2021 4:41 PM EST [email or web address] Blood Venous blood specimen / Unknown 06/04/2021 3:00 PM EST 06/04/2021 4:04 PM EST Narrative [facility] - 06/04/2021 4:41 PM EST This CRP test is appropriate for assessment of infection, systemic inflammation and/or tissue injury. To assess cardiovascular disease risk order high sensitivity CRP (CRPH). us Steve Hurtado MD LAB BLOOD ORDERABLES Final Re sult [facility] [address] [place] [address] documented in this encounter Visit Diagnoses Diagnosis Osteomyelitis, unspecified (CMS/HCC) documented in this encounter Additional Health Concerns Assessment Noted Time A fall risk assessment has been complete d for the patient 05/26/2021 8:30 AM EST documented as of this encounter Care Teams Noteman Relationship Specialty Start Date End Date Elijah Cota MD [address] [place] [address] PCP - General 03/26/21 documented as of this encounter
--- OUTSIDE RECORDS SUMMARY | 2025-03-12 21:39 | XMS_ITS | Clinical Summary ---
Author Organization [facility] Address [address] [place] [address] Care Team Providers Care Petroleum Refinery Operator Name Role Phone Elijah Cota MD Primary Care Provider + [phone] Allergies Active Allergy Reactions Criticality Noted Date [...] for 30 minutes after Active HYDROcodone-chandni taminophen (Jber) 5-325 MG tablet Take 1 tablet (5 mg of hydrocodone) by mouth every 12 (twelve) hours if needed for moderate pain. Active Wound Dressings ([facility] WOUND &BURN DRESSING EX) Apply topically 1 [...] (06/01/2021): Added automatically from request for surgery [id number] HTN (hypertension) 05/12/2021 Hypothyroidism 05/12/2021 Gastroesophageal reflux disease 05/12/2021 Elbow fracture, left, closed, initial encounter 04/02/2021 Resolved Problems Problem Noted Date Diagnosed Date Resolved Date DJD (degenerative joint disease) 10/26/2022 12/23/2024 Hardware complicating wound infection 05/26/2021 10/14/2023 Exposed orthopaedic hardware 05/26/2021 06/03/2021 Overview (06/01/2021): Added automatically from request for surgery [id number] Fall 05/12/2021 05/18/2021 Arthritis 05/12/2021 12/16/2024 Exposed orthopaedic hardware 05/11/2021 06/01/2021 Overview (05/12/2021): Added automatically from request for surgery [id number] Elbow pain, left 03/31/2021 10/14/2023 Overview (03/31/2021): Added automatically from request for surgery [id number] Immunizations Immunization Administration Dates Next Due Influenza, [...] and Family Not on file 10/13/2023 Attends [employer] Services Not on file 10/12 Active Member [...] place to sleep or slept in a halfway (including now)? No 10/13/2023 CAGE ASSESSMENT Answer [...] drink first t michelle in the morning (EYE-CHLORINE OPERATOR) to steady your nerves or to get rid of a hangover? 0 10/11/2023 CAGE Questionnaire Score 0 024 Utilities Answer Date Recorded In the past 12 months has th [employer], gas, oil, or water company threatened to [...] 75+ series) 2021 [facility]-Depression Screening 06/20/2024 06/21/2023 [id number]-09 Vaccine (3 - season) 2024 01/28/2021, 06/03/2020 [...] this topic Medical Devices Implanted Type Area Supervisor Tan Room Device Identifier Shelf Expiration Date Model / Serial / Lot Screw 3.5mm Pericortical 2.7mm Hd Selftap 56mm - [id number] Implanted:Qty: 1 on 04/02/2021 by Samuel Aquino MD at [facility] Screw Left: Elbow [employer] Inc-563715 04/01/2022 [id number] / / Screw 6.5mm Cannulated 32mm Thrd/100mm - S. - [id number] Implanted:Qty: 1 on 05/27/2021 by Ulices Galvez MD at [facility] Screw Left: Elbow [employer] USA-555929 05/27/2022 208.442 / . / Washer 13mm Lg - S. - [id number] Implanted:Qty: 1 on 05/27/2021 by Ulices Galvez MD at [facility] Washer Left: Elbow [employer]p [employer] USA-227594 05/27/2022 219.99 / . / Wire Threaded Tip K 1.6 Mm - [id number] Implanted:Qty: 1 on 04/02/2021 by Samuel Aquino MD at [facility] Wire Left: Elbow Miss[employer] US Inc-[id number] 04/01/2022 8290-16-006 / / Rods/Screws N/A: Back Screw 2.5mm Peg 20mm - [id number] Implanted:Qty: 2 on 04/02/2021 by Samuel Aquino MD at [facility] Left: Elbow [employer] Inc-[id number] 04/02/2021 [id number] / / Screw 2.5mm Peg 22mm - [id number] Implanted:Qty: 2 on 04/02/2021 by Samuel Aquino MD at [facility] Left: Elbow [employer] Inc-[id number] 04/02/2021 [id number] / / Dist Hum Med Lt 13hole 127mm - [id number] Implanted:Qty: 1 on 04/02/2021 by Samuel Aquino MD at [facility] Left: Elbow [employer] Inc-874293 04/02/2021 [id number] / / Screw 2.7mm Cortical Locking 50mm - [id number] Implanted:Qty: 2 on 04/02/2021 by Samuel Aquino MD at [facility] Left: Elbow [employer] Inc-808925 04/02/2021 [id number] / / Screw 3.5mm Cortical Solid Ft 24mm - [id number] Implanted:Qty: 1 on 04/02/2021 by Samuel Aquino MD at [facility] Left: Elbow [employer] Inc-501553 04/02/2021 [id number] / / Screw 3.5mm Cortical Solid Ft 22mm - [id number] Implanted:Qty: 2 on 04/02/2021 by Samuel Aquino MD at [facility] Left: Elbow Imssael US Inc-905040 04/02/2021 [id number] / / Screw 3.5mm Cortical Solid Ft 30mm - [id number] Implanted:Qty: 1 on 04/02/2021 by Samuel Aquino MD at [facility] Left: Elbow [employer] Inc-654236 04/02/2021 [id number] / / Putty Norian Fast Set 10cc - [id number] Implanted:Qty: 1 on 04/02/2021 by Samuel Aquino MD at [facility] Left: Elbow Synthes USA-590800 08/22/2021 07.704.110S / / Plate Prox Lloyd Ulna 4h Lt - [id number] Implanted:Qty: 1 on 04/02/2021 by Samuel Aquino MD at [facility] Left: Elbow [employer] US Inc-912700 04/02/2021 [id number] / / Screw 3.5mm Periart 2.7mm Head Selftap 20mm - [id number] Implanted:Qty: 1 on 04/02/2021 by Samuel Aquino MD at [facility] Left: Elbow [employer] US Inc-346966 04/02/2021 [id number] / / Screw 3.5mm Periart 2.7mm Head Selftap 24mm - [id number] Implanted:Qty: 1 on 04/02/2021 by Samuel Aquino MD at [facility] Left: Elbow [employer] Inc-876388 04/02/2021 [id number] / / Screw 3.5mm Periart 2.7mm Head Selftap 18mm - [id number] Implanted:Qty: 1 on 04/02/2021 by Samuel Aquino MD at [facility] Left: Elbow [employer] Inc-[id number] 04/02/2021 [id number] / / Screw 3.5mm Periart 2.7mm Head Selftap 44mm - [id number] Implanted:Qty: 1 on 04/02/2021 by Samuel Aquino MD at [facility] Left: Elbow [employer] US Inc-764312 04/02/2021 [id number] / / Screw 3.5mm Periart 2.7mm Head Selftap 110mm - [id number] Implanted:Qty: 1 on 04/02/2021 by Samuel Aquino MD at [facility] Left: Elbow [employer] Inc-385642 04/02/2021 [id number] / / Screw 2.7mm Cortical Small Hex Selftap 60mm - [id number] Implanted:Qty: 1 on 04/02/2021 by Samuel Aquino MD at [facility] Left: Elbow [employer] US Inc-482294 04/02/2021 [id number] / / Cement Palacos Lv W Gent - [id number] Implanted:Qty: 2 on 12/21/2022 by Deshawn Miller MD at [facility] Left: Knee Herae[employer] Inc-827808 11/26/2023 [id number] / / [id number] Cement Palacos Lv W Gent - [id number] Implanted:Qty: 4 on 12/21/2022 by Deshawn Miller MD at [facility] Left: Knee [employer] Inc-073297 05/26/2023 [id number] / / [id number] Cement Palacos Mv - [id number] Implanted:Qty: 1 on 12/21/2022 by Deshawn Miller MD at [facility] Left: Knee Herae[employer] Inc-543242 03/27/2027 [id number] / / [id number] Chg Base Leg Tib Hk Sz 2 Lt - [id number] Implanted:Qty: 1 on 12/21/2022 by Deshawn Miller MD at [facility] Left: Knee [employer] Inc-244213 10/11/2031 [id number] / / [id number] Chg Stem Lgn [id number] - [id number] Implanted:Qty: 1 on 12/21/2022 by Deshawn Miller MD at [facility] Left: Knee [employer] Inc-048194 03/21/2027 [id number] / / [id number] Chg Stem Lgn [id number] - [id number] Implanted:Qty: 1 on 12/21/2022 by Deshawn Miller MD at [facility] Left: Knee [employer] Inc-380389 01/13/2030 [id number] / / [id number] Chg Base Leg Fem Hk Sz 4 Lt - [id number] Implanted:Qty: 1 on 12/21/2022 by Deshawn Miller MD at [facility] Left: Knee [employer] Inc-191999 09/08/2025 [id number] / / [id number] Chg Patella Gii Oval Resurfaci - [id number] Implanted:Qty: 1 on 12/21/2022 by Deshawn Miller MD at [facility] Left: Knee [employer] Inc-047690 09/21/2032 [id number] / / [id number] Chg Sleeve Legion Hnge 11mm Josh - [id number] Implanted:Qty: 1 on 12/21/2022 by Deshawn Miller MD at [facility] Left: Knee [employer] Inc-331403 04/27/2032 [id number] / / [id number] Chg Insert Lgn Hng Gd Mt 11mm - [id number] Implanted:Qty: 1 on 12/21/2022 by Deshawn Miller MD at [facility] Left: Knee [employer] Inc-242470 11/03/2031 [id number] / / [id number] Procedures Procedure Name Priority Date/Time Associated Diagnosis Comments HEPATITIS C ANTIBODY - ED W/REFLEX TO HCV QUANT PCR STAT 05/11/2021 9:50 PM EST from Last 3 Months or Most Recently Relevant to Health Maintenance Results * [place] Hepatitis C Antibody (05/11/2021 9:50 PM EST) [facility] Hepatitis C Antibody Negative Negative 05/11/2021 11:12 PM EST [facility]ARE [facility] Blood Venous blood specimen / Unknown Venipuncture / Unknown 05/11/2021 9:50 PM EST 05/11/2021 9:59 PM EST us Mally Vital MD LAB BLOOD ORDERABLES Final Res ult [facility] [address] [place] [address] from Last 3 Months or Most Recently Relevant to Health Maintenance Insurance MEDICARE Member Subscriber Plan / Payer (Ef fective 2011-Present) Name:Britta Xiao Member ID:[id number] Relation to Subscriber:Self Name:Birtta Xiao Subscriber ID:[id number] Payer ID:MEDICARE Group ID:Not on file Type:Medicare Address: [address] [facility] Advance Directives * Full [...] Patient has decision-making capacity? Yes Care Teams Petroleum Refinery Operator Relationship Specialty Start Date End Date Elijah Cota MD [address] [place], [place] [address] PCP - General 03/26/21
[2025-03-12 21:51] LABS: Microscopic, Urine URINE MICROSCOPIC (MICROSCOPIC)
[2025-03-12 21:53] LABS: Bilirubin,Urine Negative (Negative); Color,Urine YELLOW (Yellow); Glucose,Urine (UA) Negative (Negative); Ketones,Urine TRACE (Negative); Leukocyte Esterase,Urine 2+ (Negative); PH,Urine 6.0 (5.0-8.5); Protein,Urine TRACE (Negative); Specific Gravity, Urine 1.020 (1.005-1.030); Urobilinogen,Urine 0.2 EU/dl (0.2)
[2025-03-12 22:21] LABS: Bacteria,Urine 4+ /lpf; WBC,Urine TNTC #/hpf (0-3)
== END 2025-03-12 23:59 | disposition home or self-care (01) ==
LOC: LAB.DROPOF 21:37
PROVIDERS: PCP Nurse Practitioner Family; Visit Provider Nurse Practitioner Family
DX: E03.8 Other specified hypothyroidism (principal); E87.6 Hypokalemia; I10 Essential (primary) hypertension; G20.C Parkinsonism, unspecified
CPT/HCPCS: 81001; 87077; 87086